=== PATIENT | male | born 1955 | race Caucasian/White ===

== ENCOUNTER 2016-08-18 14:44 | Inpatient (IN) | payer BC ==
[~2016-08-18] VITALS: Ht 195.6 cm; Wt 119.1 kg
[2016-08-18] VITALS (16 sets, daily range): BP systolic 139–197; BP diastolic 92–129; PULSE 55–90; RESP 18; TEMP 97.8–98.4; O2SAT 92–97
[2016-08-18] MEDS ORDERED: SODIUM CHLOR 0.9% 1000 ML INJ 1,000 ML IV ONE (14:55)
[2016-08-18] MEDS ORDERED: NITROGLYCERIN 0.4 MG SL 25 TABS/BTL SL STA (14:55)
[2016-08-18] MEDS ORDERED: ASPIRIN 81 MG CHEW TAB PO STA (14:55)
[2016-08-18] MEDS ORDERED: HEPARIN SODIUM - IV 10,000 UNITS/10 ML VIAL IV STA (14:55)
[2016-08-18] MEDS ORDERED: METOPROLOL TARTRATE 5 MG/5 ML VIAL SLOW IVP SCH (15:00)
[2016-08-18] MEDS ORDERED: SODIUM CHLORIDE 0.9% FLUSH 5 ML FLUSH IVF PRN ×2 (15:00→16:15)
[2016-08-18] MEDS ORDERED: HEPARIN-NS/PF INJ 500 ML ONE (15:01)
[2016-08-18] MEDS ORDERED: HEPARIN SODIUM - IV 10,000 UNITS/10 ML VIAL ONE (15:02)
[2016-08-18] MEDS ORDERED: NITROGLYCERIN INJ 5 ML ONE (15:02)
[2016-08-18] MEDS ORDERED: MIDAZOLAM HCL 2 MG/2 ML VIAL ONE (15:02)
[2016-08-18] MEDS ORDERED: VERAPAMIL HCL 5 MG/2 ML VIAL ONE (15:03)
[2016-08-18 15:16] LABS: I-STAT SODIUM 136 MMOL/L (138-146)
--- NOTE | 2016-08-18 15:18 | PD ---
HPI Chief Complaint: STEMI Alert Time Seen by Provider: 14:55 Travel History International Travel<30 days: No Contact w/Intl Traveler<30days: No Traveled to known affect area: No History of Present Illness HPI 62-year-old male complains of chest pain. Patient states that he has intermittent substernal chest pain with patient to the left low back for the past month. Patient denies palpitation nausea vomiting diaphoresis. Patient denies any coughing congestion fever chills. Patient has history hypertension and dyslipidemia. Patient quit smoking recently. Patient was referred by personal physician to see supervisor grips today. Patient was seen by Dr. Huerta and was advised to go to the emergency room for evaluation. Patient states that the chest pains much better now. Patient had cardiac catheter done in the past which showed coronary artery disease. [facility] Social History Tobacco Use: No Allergies-Medications (Allergen,Severity, Reaction): Coded Allergies: No Known Allergies (Verified , 04/21/03) Uncoded Allergies: NKA (Allergy, Unknown, 04/22/03) Review of Systems General / Constitutional: No: Fever Eyes: No: Visual changes HENT: No: Headaches Cardiovascular: Positive: Chest Pain or Discomfort Respiratory: No: Shortness of Breath Gastrointestinal: No: Abdominal Pain Genitourinary: No: Dysuria Musculoskeletal: No: Pain Skin: No Rash Neurologic: No: Weakness Psychiatric: No: Depression Endocrine: No: Polydipsia Hematologic/Lymphatic: No: Easy Bruising Physical Exam Narrative GENERAL: Well-nourished, well-developed patient. SKIN: Warm and dry. HEAD: Normocephalic. EYES: No scleral icterus. No injection or drainage. NECK: Supple, trachea midline. No JVD or lymphadenopathy. CARDIOVASCULAR: Regular rate and rhythm without murmurs, gallops, or rubs. RESPIRATORY: Breath sounds equal bilaterally. No accessory muscle use. GASTROINTESTINAL: Abdomen soft, non-tender, nondistended. MUSCULOSKELETAL: No cyanosis, or edema. BACK: Nontender without obvious deformity. No CVA tenderness. Neurologic exam normal. Data Data Last Documented VS Vital Signs Date Time Temp Pulse Resp B/P Pulse Ox O2 Delivery O2 Flow Rate FiO2 08/18/16 14:58 96 18 96 Nasal Cannula 2 08/18/16 14:57 97.8 190/98 08/18/16 14:49 21 Orders Troponin I (08/18/16 14:55) Ckmb (Isoenzyme) Profile (08/18/16 14:55) Complete Blood Count With Diff (08/18/16 14:55) I-Stat Profile (08/18/16 14:55) I-Stat Creatinine (08/18/16 14:55) Calcium (08/18/16 14:55) Magnesium (Mg) (08/18/16 14:55) Prothrombin Time / Inr (Pt) (08/18/16 14:55) Act Partial Throm Time (Ptt) (08/18/16 14:55) B-Type Natriuretic Peptide (08/18/16 14:55) Chest, Single Ap (08/18/16 14:55) Electrocardiogram (08/18/16 14:55) Oxygen Administration (08/18/16 14:55) Iv Access Insert/Monitor (08/18/16 14:55) Oximetry (08/18/16 14:55) Sodium Chlor 0.9% 1000 Ml Inj (Ns 1000 M (08/18/16 14:55) Sodium Chloride 0.9% Flush (Ns Flush) (08/18/16 15:00) Aspirin Chew (Aspirin Chew) (08/18/16 14:55) Nitroglycerin Sl (Nitrostat Sl) (08/18/16 14:55) Heparin Inj (Heparin Inj) (08/18/16 14:55) Metoprolol Tartrate Inj (Lopressor Inj) (08/18/16 15:00) Admit Order (Ed Use Only) (08/18/16 14:57) CKMB (08/18/16 14:55) CKMB% (08/18/16 14:55) Labs Laboratory Tests Test 08/18/16 14:55 White Blood Count 11.3 TH/MM3 Red Blood Count 5.03 MIL/MM3 Hemoglobin 16.7 GM/DL Bedside Hemoglobin 17.0 G/DL Hematocrit 47.8 % Bedside Hematocrit 50.0 % Mean Corpuscular Volume 95.0 FL Mean Corpuscular Hemoglobin 33.1 PG Mean Corpuscular Hemoglobin 34.8 % Concent Red Cell Distribution Width 13.3 % Platelet Count 228 TH/MM3 Mean Platelet Volume 9.0 FL Neutrophils (%) (Auto) 60.0 % Lymphocytes (%) (Auto) 31.9 % Monocytes (%) (Auto) 6.4 % Eosinophils (%) (Auto) 1.0 % Basophils (%) (Auto) 0.7 % Neutrophils # (Auto) 6.8 TH/MM3 Lymphocytes # (Auto) 3.6 TH/MM3 Monocytes # (Auto) 0.7 TH/MM3 Eosinophils # (Auto) 0.1 TH/MM3 Basophils # (Auto) 0.1 TH/MM3 CBC Comment DIFF FINAL Differential Comment Prothrombin Time 10.7 SEC Prothromb Time International 1.0 RATIO Ratio Activated Partial 27.9 SEC Thromboplast Time Bedside Sodium 136 MMOL/L Bedside Potassium 4.0 MMOL/L Bedside Chloride 102 MMOL/L Bedside Blood Urea Nitrogen 17 MG/DL Bedside Creatinine 0.9 MG/DL Bedside Glucose 100 MG/DL Calcium Level 9.4 MG/DL Magnesium Level 1.8 MG/DL Total Creatine Kinase 103 U/L Creatine Kinase MB 0.7 NG/ML Troponin I LESS THAN 0.02 NG/ML B-Type Natriuretic Peptide 244 PG/ML MDM Medical Decision Making Medical Screen Exam Complete: Yes Emergency Medical Condition: Yes Differential Diagnosis Differential diagnosis including STEMI, pericarditis, myocarditis, atypical chest pain. Narrative Course 61-year-old male with chest pain. EKG show ST elevation inferior leads and anterior leads. STEMI alert was called. Patient was given nitroglycerin sublingually, aspirin 325 mg and heparin [address] Sow, supervisor grips infusion rn contacted. Patient was taken to [facility]. Metoprolol 5 mg IV given. Diagnosis Primary Impression: STEMI (ST elevation myocardial infarction) Qualified Code: I21.11 - ST elevation myocardial infarction involving right coronary artery Admitting Information Admitting Physician Requests: Admit Iftikhar Araya MD Aug 18, 2016 15:18
[2016-08-18 15:21] LABS: AUTOMATED NEUTROPHIL # 6.8 TH/MM3 (1.8-7.7); BASOPHIL # 0.1 TH/MM3 (0-0.2); BASOPHIL % 0.7 % (0.0-2.0); EOSINOPHIL # 0.1 TH/MM3 (0-0.4); HEMATOCRIT 47.8 % (39.0-51.0); HEMO FLAGS DIFF FINAL; LYMPH % 31.9 % (9.0-44.0); LYMPHOCYTE # 3.6 TH/MM3 (1.0-4.8); MEAN CORPUSCULAR HEMOGLOBIN 33.1 PG (27.0-34.0); MEAN CORPUSCULAR HGB CONC 34.8 % (32.0-36.0); MONO % 6.4 % (0.0-8.0); PLATELET COUNT 228 TH/MM3 (150-450); RED BLOOD COUNT 5.03 MIL/MM3 (4.50-5.90); RED CELL DISTRIBUTION WIDTH 13.3 % (11.6-17.2); WHITE BLOOD COUNT 11.3 TH/MM3 (4.0-11.0)
[2016-08-18 15:30] LABS: APTT (PATIENT) 27.9 SEC (24.3-30.1); PROTHROMBIN TIME - PATIENT 10.7 SEC (9.8-11.6)
[2016-08-18] MEDS ORDERED: BIVALIRUDIN 250 MG VIAL ONE (15:34)
[2016-08-18] MEDS ORDERED: STERILE WATER FOR INJECTION 10 ML VIAL ONE (15:34)
[2016-08-18 15:38] LABS: MAGNESIUM 1.8 MG/DL (1.5-2.5)
[2016-08-18 15:42] LABS: CREATINE KINASE 103 U/L (39-308)
--- NOTE | 2016-08-18 15:45 | RADRPT ---
EXAM DATE/TIME: 08/18/2016 14:56 [facility] COMPARISON: No previous studies available for comparison. INDICATIONS : Stemi Alert MEDICAL HISTORY : None. SURGICAL HISTORY : None. ENCOUNTER: Initial ACUITY: 1 day PAIN SCORE: 0/10 LOCATION: Bilateral chest FINDINGS: Lungs are clear. No pleural effusion evident. Cardiomediastinal contours are satisfactory for techniq ue and projection. CONCLUSION: No acute disease. Low Lockhart MD on August 18, 2016 at 15:42 Board Certified Radiologist. This report was verified electronically.
[2016-08-18 15:54] LABS: CKMB 0.7 NG/ML (0.5-3.6)
[2016-08-18] MEDS ORDERED: ATROPINE SULFATE 1 MG/ML VIAL IV PRN (16:15)
[2016-08-18] MEDS ORDERED: METOCLOPRAMIDE HCL 10 MG/2 ML VIAL IV PRN (16:15)
[2016-08-18] MEDS ORDERED: SODIUM CHLOR 0.9% 250 ML INJ 250 ML IV PRN (16:15)
[2016-08-18] MEDS ORDERED: MORPHINE SULFATE 4 MG/ML INJ IV PUSH PRN (16:15)
[2016-08-18] MEDS ORDERED: MISC INFORMATION XX ONE ×2 (16:15)
[2016-08-18] MEDS ORDERED: BACITRACIN OINT 0.9 GM PKT TOP ONE ×2 (16:15)
[2016-08-18] MEDS ORDERED: LIDOCAINE HCL 1% 50 ML VIAL INFIL PRN (16:15)
[2016-08-18] MEDS ORDERED: LORazepam 2 MG/ML VIAL IV PRN (16:15)
[2016-08-18] MEDS ORDERED: oxyCODONE/ACETAMINOPHEN 5 MG/325 MG TAB PO PRN ×2 (16:15)
[2016-08-18] MEDS ORDERED: ONDANSETRON HCL 4 MG/2 ML VIAL IVP PRN (16:15)
[2016-08-18] MEDS ORDERED: ONDANSETRON HCL 4 MG/2 ML VIAL IV PRN (16:15)
[2016-08-18] MEDS ORDERED: ENALAPRILAT 1.25 MG/ML VIAL IV PRN (16:30)
[2016-08-18] MEDS ORDERED: POTASSIUM CHLORIDE 20 MEQ CONTROLLED RELEASE TAB PO PRN (16:30)
[2016-08-18] MEDS ORDERED: LABETALOL HCL 100 MG/20 ML VIAL IVP PRN (16:30)
[2016-08-18] MEDS ORDERED: MISC INFORMATION XX PRN (16:30)
[2016-08-18] MEDS ORDERED: PILL SPLITTER OTHER PRN (16:30)
[2016-08-18] MEDS ORDERED: NITROPRUSSIDE INJ 50 MG in DEXTROSE 5% IN WATER INJ 248 ML IV SCH ×2 (16:30)
--- NOTE | 2016-08-18 16:43 | MH ---
cc: JED WILLS MD DATE OF ADMISSION 08/18/2016 HISTORY OF PRESENT ILLNESS This is a 62-year-old gentleman who has a history of known coronary disease with prior chronically occluded right coronary artery back into 2009, in addition, hypertension, hyperlipidemia. He was over to see Dr. Irene at [facility]. He was complaining of some intermittent chest pain in addition to palpitations. Electrocardiogram there showed inferior ST-segment elevation. He was advised to go directly to the emergency department for evaluation. Upon arrival to the emergency department, repeat electrocardiogram also showed inferior ST-elevation and protocol was initiated. I was contacted emergently to come over for ST-elevation NH protocol. PAST MEDICAL HISTORY 1. Hypertension, 2. Hyperlipidemia 3. Known coronary disease with the chronically occluded right coronary artery. ALLERGIES None. MEDICATIONS See med reconciliation. SOCIAL HISTORY Denies alcohol, tobacco or drug use. FAMILY HISTORY Denies any family history of early cardiac disease or sudden cardiac . REVIEW OF SYSTEMS 12-point review of systems was performed, negative unless otherwise noted in history of present illness. PHYSICAL EXAMINATION VITAL SIGNS: Temperature is 97, pulse is 84, blood pressure 190/98 mmHg. GENERAL: Alert and oriented x3 in no acute distress. HEENT: Exam shows pupils reactive to light and accommodation, extraocular movements are intact. No elevation in jugular venous distension. No thyromegaly or lymphadenopathy. No carotid bruits. LUNGS: Clear to auscultation bilaterally. CARDIOVASCULAR: Regular rate and rhythm without murmurs, rubs or gallops. ABDOMEN: Nontender, nondistended. Good bowel sounds. No hepatosplenomegaly. EXTREMITIES: No clubbing, cyanosis or edema. Good peripheral pulses. NEUROLOGIC: Cranial nerves intact. Motor and sensory grossly intact. LABORATORY DATA CBC 11.3, hemoglobin 16.7, platelet count 228, INR is one. Sodium 136, potassium 4.0, BUN seven, creatinine 0.9, BNP is 244. CARDIOLOGY STUDIES Electrocardiogram - sinus rhythm, inferior Q-waves with inferior ST-elevation. ASSESSMENT 1. ST-elevation NH. 2. History of known coronary disease. 3. Hypertension. 4. Hyperlipidemia. PLAN ST-elevation NH protocol was initiated. The patient is to be brought emergently to the cardiac catheterization lab for possible revascularization. We will obtain a 2-D echocardiogram. MD NOEL Corea /4:20 PM /4:36 PM
[2016-08-18] MEDS ORDERED: ceFAZolin 2 GM PREMIX 50 ML IV SCH (17:00)
[2016-08-18] MEDS ORDERED: CHLORHEXIDINE GLUCONATE 4% SOLN 120 ML BTL TOPICAL SCH (17:00)
[2016-08-18] MEDS ORDERED: METOPROLOL TARTRATE 25 MG TAB PO SCH (17:00)
[2016-08-18] MEDS ORDERED: CEFAZOLIN INJ 500 MG in SODIUM CHLORIDE 0.9% IRR BTL 500 ML IRRIGATION SCH (17:00)
[2016-08-18] MEDS ORDERED: INSULIN REGULAR (IV INFUSION) 100 UNITS in SODIUM CHLORIDE 0.9% INJ 100 ML IV SCH (17:00)
[2016-08-18] MEDS ORDERED: PAPAVERINE INJ 60 MG, NITROGLYCERIN INJ 100 MCG, DILTIAZEM INJ 100 MG in SODIUM CHLORID... IRRIGATION SCH (17:00)
--- NOTE | 2016-08-18 18:10 | MA ---
cc: ISREAL SOW DATE: 08/18/2016 INDICATIONS FOR THE PROCEDURE: S-T elevation myocardial infarction. DIVISION COMMANDER: Isreal Sow MD, [facility]. PROCEDURE PERFORMED: 1. Fluoroscopy with interpretation. 2. Coronary angiography. 3. Left heart catheterization. 4. Left ventriculography. 5. Percutaneous transluminal angioplasty of the proximal left anterior descending coronary artery. METHOD: The risks, benefits, and alternatives were discussed with the patient. The patient understood and consented to the procedure. The patient was brought to the cardiac catheterization lab and placed on the catheterization table. The right wrist was prepped and draped in the usual sterile fashion. The right wrist was anesthetized with 2% lidocaine. The right radial artery was cannulated and a 6-Tuvaluan 7 cm-sheath was placed without difficulty. 200 mcg of intra-arterial nitroglycerin was administered. Angiomax was initiated. LEFT HEART CATHETERIZATION: A 6-Tuvaluan angled pigtail catheter was advanced across the aortic valve without difficulty. Intraventricular hemodynamics were measured at 152/23 mmHg. LEFT VENTRICULOGRAPHY: Left ventriculography was performed in the right anterior oblique using a 6-Tuvaluan angled pigtail catheter. 30 cc of contrast was injected with good opacification. Left ventricular ejection fraction visually estimated at 45%. Left ventricle is dilated. There is inferobasal dyskinesis present. No significant mitral regurgitation noted. Mild hypokinesis in the distal anterior wall and anterior apex. CORONARY ANGIOGRAPHY: The left coronary circulation was selectively engaged with a 6-Tuvaluan JL-4 guide. The right coronary circulation was selectively engaged with a 6-Tuvaluan JR-4 diagnostic catheter. Angiography findings are as follows. 1. The left main coronary is angiographically normal. 2. Left anterior descending coronary has severe disease through its entire proximal segment. Just prior to the bifurcation of a large diagonal branch, there is a 90% discrete stenosis. Just beyond the takeoff of the diagonal branch there is 100% occlusion. There is some faint collateralization to a suboptimally filled distal left anterior descending coronary artery with some tandem moderate disease wrapping around the inferior apex. The diagonal branch itself after the ostial stenosis has only minor luminal irregularities. 3. Left circumflex gives rise to a large second obtuse marginal branch. The first obtuse marginal branch is very small with rather diffuse proximal disease. The second obtuse marginal branch is widely patent. 4. The right coronary artery is the dominant vessel. It is occluded in the mid segment and fills via septal collaterals from left to right. PERCUTANEOUS INTERVENTION: The patient's old films from 2010 at [facility] were available and I reviewed them in detail. At that time, it was recognized that he had an occluded right coronary artery with collateralization, which was managed medically. His left anterior descending and circumflex territories were widely patent. His left anterior descending now is occluded and there is a question as to whether it was acute or chronic in nature (faint collateralization is present). The left coronary circulation was selectively engaged with a 6-Tuvaluan JL-4 guide catheter 0.014 to 180 cm run-through wire was navigated down to the mid left anterior descending coronary artery. A 2.5 x 20-mm Euphora balloon was advanced behind it. Several attempts to cross the mid segment of the occlusion was unsuccessful, likely due to chronicity (hard plaque not soft thrombus). The proximal segment of the left anterior descending coronary leading to the diagonal branch was gently predilated to 6 atmospheres to maintain antegrade flow to the diagonal. After unsuccessful attempt at revascularizing the distal left anterior descending due to chronic nature, we aborted any further attempted intervention. The sheath was removed. A HemoBand was applied. CONCLUSIONS: 1. Chronically occluded mid left anterior descending and mid right coronary arteries with collateralization. 2. Severe proximal left anterior descending coronary artery leading to a large diagonal branch status post successful percutaneous transluminal angioplasty. 3. 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 CONCLUSIONS: His LAD and RCA stenosis appear to be chronic in nature and not an acute event therefore we aborted any further attempts at revascularization of the LAD for concern of perforation. Given the multivessel disease, we will plan for staged bypass surgery for a full revascularization strategy. His anterior wall still has good motion and collateralization so I suspect it is still viable. The basal inferior wall was clearly dyskinetic and no longer salvageable. The mid to inferior inflow apex does appear to be fed via distal right coronary and would be a good bypass candidate. I think once the left anterior descending is bypassed, it will be a much larger vessel. It is probably underfilled now when we compare it to the prior films in 2009 in which it was a much larger size. I discussed the case with Dr. Vince Esquivel. The patient is now asymptomatic and comfortable. He may be able to go home tomorrow and have his surgery electively if he remains asymptomatic. Will monitor closely for any post-procedural complications. The case was also discussed with Dr. Valentino. The patient will be transferred over to [facility] for further cardiovascular management. MD JOLENE Corea/DANNY /4:24 PM /5:50 PM GEORGE
[2016-08-18] MEDS: cloNIDine HCL 0.1 MG TAB PO PRN (18:24)
[2016-08-18] MEDS: METOPROLOL TARTRATE 25 MG TAB PO SCH (20:39)
[2016-08-18] MEDS: ATORVASTATIN 40 MG TAB PO SCH (20:39)
[2016-08-18] MEDS: MUPIROCIN 2% OINT 1 APPLIC/GM SYR EACH NARE SCH (21:00)
[2016-08-18] MEDS ORDERED: NITROGLYCERIN-DEXTROSE 5% 250 ML for hypertension IV SCH (21:00)
[2016-08-18 21:46] LABS: HDL CHOLESTEROL 58.7 MG/DL (40.0-60.0); LDL CHOLESTEROL 157 MG/DL (0-99)
[2016-08-18 22:33] LABS: HEMOGLOBIN A1a 1.2 %; HEMOGLOBIN A1b 1.6 %; HEMOGLOBIN LA1C 1.9 %; HEMOGLOBIN P3 3.7 %
[2016-08-19] VITALS (26 sets, daily range): BP systolic 117–149; BP diastolic 72–88; PULSE 53–128; RESP 18; TEMP 97.5–98.3; O2SAT 94–98
[2016-08-19 05:28] LABS: BASOPHIL # 0.1 TH/MM3 (0-0.2); BASOPHIL % 0.6 % (0.0-2.0); EOSINOPHIL # 0.1 TH/MM3 (0-0.4); EOSINOPHIL % 1.1 % (0.0-4.0); HEMATOCRIT 44.5 % (39.0-51.0); HEMO FLAGS DIFF FINAL; LYMPH % 24.7 % (9.0-44.0); MEAN CELL VOLUME 93.6 FL (80.0-100.0); MEAN CORPUSCULAR HEMOGLOBIN 32.7 PG (27.0-34.0); MONO % 7.6 % (0.0-8.0); PLATELET COUNT 193 TH/MM3 (150-450); RED BLOOD COUNT 4.75 MIL/MM3 (4.50-5.90); RED CELL DISTRIBUTION WIDTH 13.2 % (11.6-17.2); WHITE BLOOD COUNT 12.2 TH/MM3 (4.0-11.0)
[2016-08-19 05:50] LABS: POTASSIUM 3.5 MEQ/L (3.5-5.1)
[2016-08-19 05:54] LABS: HDL CHOLESTEROL 48.1 MG/DL (40.0-60.0)
[2016-08-19] MEDS: METOPROLOL TARTRATE 25 MG TAB PO SCH ×2 (08:03→20:16)
[2016-08-19] MEDS: ASPIRIN 81 MG CHEW TAB PO SCH (08:03)
[2016-08-19] MEDS: SODIUM CHLORIDE 0.9% FLUSH 5 ML FLUSH IVF SCH ×2 (08:06→20:16)
[2016-08-19] MEDS: MUPIROCIN 2% OINT 1 APPLIC/GM SYR EACH NARE SCH ×2 (08:06→20:16)
[2016-08-19] MEDS ORDERED: LISINOPRIL 5 MG TAB PO SCH (09:00)
[2016-08-19] MEDS ORDERED: SIMV40TA PO (11:33)
[2016-08-19] MEDS ORDERED: LISI20TA3 PO (11:33)
--- NOTE | 2016-08-19 12:45 | RADRPT ---
EXAM DATE/TIME: 08/19/2016 08:52 [facility] COMPARISON: No previous studies available for comparison. INDICATIONS : Preop cardiac surgery. MEDICAL HISTORY : Hypertension. Dyslipidemia. CAD. SURGICAL HISTORY : Vasectomy. ENCOUNTER: Initial ACUITY: 1 day PAIN SCORE: 0/10 LOCATION: Bilateral neck PEAK SYSTOLIC VELOCITIES (cm/sec): ICA/CCA RATIO: Right: 1.1 Left: 0.8 ICA: Right: 68 Left: 76 CCA: Right: 59 Left: 95 ECA: Right: 96 Left: 73 VERTEBRAL: Right: 41 antegrade Left: 65 antegrade Elevated flow velocities and ICA/CCA ratios have been found to correlate with increased degrees of vessel stenosis, calculated as percentage of diameter relative to a normal segment of distal ICA/CCA FINDINGS: RIGHT CAROTID: No significant stenosis is visualized. The waveforms are within normal limits. LEFT CAROTID: No significant stenosis is visualized. The waveforms are within normal limits. VERTEBRAL ARTERIES: Antegrade flow is seen in both vertebral arteries. MISCELLANEOUS: None. CONCLUSION: Normal examination for a patient of this age. Haroldo Fields MD on August 19, 2016 at 12:42 Board Certified Radiologist. This report was verified electronically.
--- NOTE | 2016-08-19 12:46 | RADRPT ---
EXAM DATE/TIME: 08/19/2016 09:02 [facility] COMPARISON: No previous studies available for comparison. INDICATIONS : Preop cardiac surgery. MEDICAL HISTORY : Hypertension. CAD. Dyslipidemia. SURGICAL HISTORY : Vasectomy. ENCOUNTER: Initial ACUITY: 1 day PAIN SCORE: 0/10 LOCATION: Bilateral leg. TECHNIQUE: Venous ultrasound of the left and right leg was performed from the inguinal ligament to the proximal calf. Real-time, color Doppler and spectral tracing, compression and augmentation techniques were us ed. FINDINGS: RIGHT LEG: There is normal compressibility of the deep venous system from the inguinal region to the proximal ca lf. No echogenic clot is seen in the lumen of the common femoral, femoral, popliteal, and posterior tibial veins. There is a normal response of the venous system to proximal and distal augmentation an d respiration. LEFT LEG: There is normal compressibility of the deep venous system from the inguinal region to the proximal ca lf. No echogenic clot is seen in the lumen of the common femoral, femoral, popliteal, and posterior tibial veins. There is a normal response of the venous system to proximal and distal augmentation an d respiration. CONCLUSION: Normal examination. Haroldo Fields MD on August 19, 2016 at 12:44 Board Certified Radiologist. This report was verified electronically.
--- NOTE | 2016-08-19 12:58 | RADRPT ---
EXAM DATE/TIME: 08/19/2016 09:12 [facility] COMPARISON: No previous studies available for comparison. INDICATIONS : Preop Cardiac surgery. MEDICAL HISTORY : Hypertension. Dyslipidemia. CAD. SURGICAL HISTORY : Vasectomy. ENCOUNTER: Initial ACUITY: 1 day PAIN SCORE: 0/10 LOCATION: Bilateral leg. GREATER SAPHENOUS VEIN THIGH: PROXIMAL: Right 5 mm Left 7 mm MID: Right 4 mm Left 4 mm DISTAL: Right 4 mm Left 5 mm CALF: PROXIMAL: Right 3 mm Left 3 mm MID: Right 2 mm Left 3 mm DISTAL: Right 3 mm Left 3 mm FINDINGS: The venous system of the lower extremities are patent by color Doppler imaging. Measurements of the leg veins (in mm) are listed above. CONCLUSION: Patent saphenous veins throughout bilaterally Low Lockhart MD on August 19, 2016 at 12:56 Board Certified Radiologist. This report was verified electronically.
--- NOTE | 2016-08-19 13:14 | PD.CONS ---
HPI Service [facility] Consult Requested By Dr. whitten Reason for Consult Medical management Primary Care Physician Unknown Diagnoses: History of Present Illness This is a 62-year-old male with known history of coronary artery disease with chronic reoccluded right coronary artery in 2009 and hypertension, presenting with intermittent chest pain with palpitations. EKG showed ST segment elevation , patient was immediately brought to the OR for cardiac catheterization. Cardiac catheter showed included left anterior descending and mid right coronary artery with collateralization. There is also severe proximal LAD leading to a large diagonal branch status post angioplasty. Given multivessel disease, plan is for bypass surgery for full revascularization. We are being consulted for medical comanagement of chronic conditions. Presently, patient is chest pain-free, no palpitations, shortness of breath, nausea, vomiting or diaphoresis. Patient is anxious about the surgery but otherwise feeling good. No abdominal pain, diarrhea or urinary symptoms. He is afebrile. Review of Systems ROS Limitations: Other (All other pertinent systems were reviewed and are negative.) Past Family Social History Allergies: Coded Allergies: No Known Allergies (Verified , 04/21/03) Uncoded Allergies: NKA (Allergy, Unknown, 04/22/03) Past Medical History Hypertension Dyslipidemia Coronary artery disease with chronically interpreted RCA Past Surgical History None Reported Medications Lisinopril-Hctz 20-25 Mg Tab 1 Tab PO DAILY Simvastatin 40 Mg Tab 40 Mg PO HS Family History No family history of early cardiac disease or sudden cardiac Social History Denies smoking or alcohol use. Physical Exam Vital Signs Vital Signs Date Time Temp Pulse Resp B/P Pulse Ox O2 Delivery O2 Flow Rate FiO2 08/19/16 12:26 59 08/19/16 11:36 97.7 56 18 130/78 95 08/19/16 11:36 56 08/19/16 10:45 94 21 08/19/16 10:05 53 08/19/16 09:21 63 08/19/16 08:38 97.5 57 18 124/84 95 08/19/16 08:38 57 08/19/16 05:00 60 08/19/16 04:30 98.3 61 18 136/76 96 08/19/16 04:00 57 08/19/16 03:00 56 08/19/16 02:00 57 08/19/16 01:00 54 08/19/16 00:00 98.2 58 18 149/87 96 08/19/16 00:00 58 08/18/16 23:00 55 08/18/16 22:00 66 08/18/16 21:00 66 08/18/16 20:00 67 08/18/16 19:45 98.3 62 18 139/95 96 08/18/16 19:00 62 08/18/16 18:27 98.3 65 18 164/118 97 08/18/16 18:25 61 08/18/16 17:57 98.4 56 18 143/92 95 08/18/16 17:52 55 18 143/92 96 08/18/16 17:52 63 08/18/16 17:51 98.4 60 18 148/99 97 08/18/16 16:32 98.4 61 18 148/99 95 08/18/16 15:05 90 18 173/127 95 Nasal Cannula 2 08/18/16 14:58 96 18 96 Nasal Cannula 2 08/18/16 14:57 94 Room Air 2 08/18/16 14:57 97.8 84 18 190/98 95 Nasal Cannula 2 08/18/16 14:57 94 Nasal Cannula 2 08/18/16 14:56 89 18 197/129 92 Nasal Cannula 2 08/18/16 14:49 94 21 Physical Exam GENERAL: This is a well-nourished, well-developed patient, in no apparent distress. SKIN: No rashes, ecchymoses or lesions. Cool and dry. HEAD: Atraumatic. Normocephalic. No temporal or scalp tenderness. EYES: Pupils equal round and reactive. Extraocular motions intact. No scleral icterus. No injection or drainage. ENT: Nose without bleeding, purulent drainage or septal hematoma. Throat without erythema, tonsillar hypertrophy or exudate. Uvula midline. Airway patent. NECK: Trachea midline. No JVD or lymphadenopathy. Supple, nontender, no meningeal signs. CARDIOVASCULAR: Regular rate and rhythm without murmurs, gallops, or rubs. RESPIRATORY: Clear to auscultation. Breath sounds equal bilaterally. No wheezes , rales, or rhonchi. GASTROINTESTINAL: Abdomen soft, non-tender, nondistended. No hepato-splenomegaly , or palpable masses. No guarding. MUSCULOSKELETAL: Extremities without clubbing, cyanosis, or edema. No joint tenderness, effusion, or edema noted. No calf tenderness. Negative Homans sign bilaterally. NEUROLOGICAL: Awake and alert. Cranial nerves II through XII intact. Motor and sensory grossly within normal limits. Five out of 5 muscle strength in all muscle groups. Normal speech. Laboratory Laboratory Tests Test 08/18/16 08/18/16 08/19/16 08/19/16 14:55 19:20 04:40 10:34 White Blood Count 11.3 12.2 Red Blood Count 5.03 4.75 Hemoglobin 16.7 15.6 Bedside Hemoglobin 17.0 Hematocrit 47.8 44.5 Bedside Hematocrit 50.0 Mean Corpuscular Volume 95.0 93.6 Mean Corpuscular Hemoglobin 33.1 32.7 Mean Corpuscular Hemoglobin 34.8 35.0 Concent Red Cell Distribution Width 13.3 13.2 Platelet Count 228 193 Mean Platelet Volume 9.0 8.7 Neutrophils (%) (Auto) 60.0 66.0 Lymphocytes (%) (Auto) 31.9 24.7 Monocytes (%) (Auto) 6.4 7.6 Eosinophils (%) (Auto) 1.0 1.1 Basophils (%) (Auto) 0.7 0.6 Neutrophils # (Auto) 6.8 8.0 Lymphocytes # (Auto) 3.6 3.0 Monocytes # (Auto) 0.7 0.9 Eosinophils # (Auto) 0.1 0.1 Basophils # (Auto) 0.1 0.1 CBC Comment DIFF FINAL DIFF FINAL Differential Comment Prothrombin Time 10.7 Prothromb Time International 1.0 Ratio Activated Partial 27.9 Thromboplast Time Bedside Sodium 136 Bedside Potassium 4.0 Bedside Chloride 102 Bedside Blood Urea Nitrogen 17 Bedside Creatinine 0.9 Bedside Glucose 100 Hemoglobin A1c 5.8 Calcium Level 9.4 9.0 Magnesium Level 1.8 Total Creatine Kinase 103 163 Creatine Kinase MB 0.7 Troponin I LESS THAN 0.02 0.06 B-Type Natriuretic Peptide 244 Triglycerides Level 199 288 Cholesterol Level 255 240 LDL Cholesterol 157 134 HDL Cholesterol 58.7 48.1 Cholesterol/HDL Ratio 4.34 4.98 Thyroid Stimulating Hormone 1.660 3rd Gen Nasal Screen MRSA (PCR) NEGATIVE Sodium Level 137 Potassium Level 3.5 Chloride Level 100 Carbon Dioxide Level 28.0 Anion Gap 9 Blood Urea Nitrogen 13 Creatinine 1.05 Estimat Glomerular Filtration 72 Rate Random Glucose 100 Result Diagram: 08/19/16 0440 08/19/16 0440 Imaging Last Impressions Lower Extremity Ultrasound 08/19/16 0000 Signed Impressions: Service Date/Time: Friday, August 19, 2016 09:02 - CONCLUSION: Normal examination. Haroldo Fields MD Carotid Artery Ultrasound 08/19/16 0000 Signed Impressions: Service Date/Time: Friday, August 19, 2016 08:52 - CONCLUSION: Normal examination for a patient of this age. Haroldo Fields MD Chest X-Ray 08/18/16 1455 Signed Impressions: Service Date/Time: August 14:56 - CONCLUSION: No acute disease. Low Lockhart MD Assessment and Plan Assessment and Plan This is a 61-year-old male with history of hypertension, dyslipidemia and coronary artery disease with chronically occlude RCA presenting with chest pain found to have multivessel are artery disease Chest pain, STEMI -status post cardiac catheterization 08/18/16 revealed chronically occlude LAD and RCA mode multivessel disease, cardiothoracic surgery consulted for CABG, likely Monday. Continue medical management, continue aspirin, lisinopril, metoprolol, statin, LDL is 134, troponin maxed at 0.06. Lisinopril dose decreased to give room for metoprolol, hydrochlorothiazide also on hold. Adjust as needed. Leukocytosis-likely stress-induced, monitor, recheck tomorrow. Afebrile. Code Status Full code. Marsha Vora MD Aug 19, 2016 13:14
[2016-08-19] MEDS ORDERED: ENALAPRILAT 1.25 MG/ML VIAL IV PUSH PRN (13:15)
[2016-08-19 14:31] LABS: BLOOD, URINE NEG (NEG); COMMENT (UR) CULT NOT INDICATED; CULTURE IF INDICATED CULT NOT INDICATED; GLUCOSE,URINE NEG (NEG); KETONE, URINE NEG (NEG); NITRITE,URINE NEG (NEG); URINE COLOR LIGHT-YELLOW (YELLW/STRAW)
[2016-08-19] MEDS ORDERED: IOHEXOL 350 MG/ML 100 ML BTL (for Cath Lab) OTHER ONE (15:00)
--- NOTE | 2016-08-19 15:23 | EC ---
Study Study Date:08/19/2016 STUDY CONCLUSIONS SUMMARY - Left ventricle: The cavity size was moderately dilated. There was focal basal hypertrophy. Systolic function was severely reduced. The estimated ejection fraction was in the range of 20% to 25%. There was no dynamic obstruction. Akinesis of the apical myocardium; consistent with infarction. Severe hypokinesis of the anteroseptal myocardium. Severe hypokinesis of the inferior myocardium. - Mitral valve: Mild regurgitation. - Left atrium: The atrium was mildly dilated. - Tricuspid valve: Mild regurgitation. If LV function is below 40, please consider prescribing an ACEI or ARB or document rationale for non-use. PROCEDURE DATA STUDY STATUS: Elective. Procedure: Transthoracic echocardiography. Image quality was good. Scanning was performed from the parasternal, apical, and subcostal acoustic windows. Study completion: The patient tolerated the procedure well. Transthoracic echocardiography. M-mode, complete 2D, complete spectral Doppler, and color Doppler. Patient status: Inpatient. CARDIAC ANATOMY LEFT VENTRICLE: The cavity size was moderately dilated. There was focal basal hypertrophy. Systolic function was severely reduced. The estimated ejection fraction was in the range of 20% to 25%. There was no dynamic obstruction. Regional wall motion abnormalities: Akinesis of the apical myocardium; consistent with infarction. Severe hypokinesis of the anteroseptal myocardium. Severe hypokinesis of the inferior myocardium. AORTIC VALVE: Probably trileaflet. Doppler: There was no stenosis. No significant regurgitation. MITRAL VALVE: The valve appears to be grossly normal. Doppler: There was no evidence for stenosis. Mild regurgitation. LEFT ATRIUM: The atrium was mildly dilated. RIGHT VENTRICLE: The cavity size was normal. PULMONIC VALVE: Not well visualized. Doppler: There was no evidence for stenosis. No significant regurgitation. TRICUSPID VALVE: The valve appears to be grossly normal. Doppler: There was no evidence for stenosis. Mild regurgitation. BASIC MEASUREMENTS ADULT NORMAL Left ventricle LV internal dimension, ED, chordal level, *63.8 mm 43-52 PLAX LV internal dimension, ES, chordal level, *58.5 mm 23-38 PLAX Fractional shortening, chordal level, PLAX *8 % >29 LV posterior wall thickness, ED 11.9 mm IVS/LVPW ratio, ED *1.5 <1.3 Ventricular septum Septal thickness, ED 17.8 mm Aortic valve Leaflet separation 24 mm 15-26 Right ventricle RV internal dimension, ED, PLAX 33.1 mm 19-38 BASIC MEASUREMENTS ADULT NORMAL Aortic valve Leaflet separation 24 mm 15-26 Aorta Root diameter, ED *44 mm 20-37 Left atrium Anterior-posterior dimension, ES 39 mm 19-40 LA/aortic root ratio 0.89 LEGEND: Mean values are shown as u=mean value. Asterisk (*) conteh values outside specified normal range. Prepared and signed by Jono Laws [id number]
--- NOTE | 2016-08-19 15:29 | RADRPT ---
EXAM DATE/TIME: 08/19/2016 14:31 [place] COMPARISON: No previous studies available for comparison. INDICATIONS : Dilated aortic root. RADIATION DOSE: 6.83 CTDIvol (mGy) MEDICAL HISTORY : Hypertension. SURGICAL HISTORY : Vasectomy. ENCOUNTER: Initial ACUITY: 1 day PAIN SCALE: 0/10 LOCATION: chest TECHNIQUE: Volumetric scanning of the chest was performed. Using automated exposure control and adjustment of the mA and/or kV according to patient size, radiation dose was kept as low as reasonab ly achievable to obtain optimal diagnostic quality images. FINDINGS: There is no focal consolidation. No pleural or pericardial effusion. Ascending aorta measures about 4 .2 cm. Aorta is tortuous. Moderate coronary calcifications. No acute findings in upper abdomen. Mild fatty liver. Adrenal adenomas bilaterally measuring about 2 cm in diameter. CONCLUSION: Ascending aorta mildly dilated to about 4.2 cm. Moderate coronary calcifications. Tortuous aorta. Haroldo Fields MD on August 19, 2016 at 14:49 Board Certified Radiologist. This report was verified electronically.
--- NOTE | 2016-08-19 16:17 | PD.CAR.PN ---
CVT Progress Note Subjective/Hospital Course: sts data discussed with pt RISK SCORES About the STS Risk Calculator Procedure: CAB Only Risk of Mortality: 1.251% Morbidity or Mortality: 14.911% Long Length of Stay: 5.027% Short Length of Stay: 43.517% Permanent Stroke: 0.744% Prolonged Ventilation: 11.471% DSW Infection: 0.674% Renal Failure: 3.022% Reoperation: 4.931% Objective: Vital Signs Date Time Temp Pulse Resp B/P Pulse Ox O2 Delivery O2 Flow Rate FiO2 08/19/16 15:19 54 08/19/16 15:19 98.2 54 18 133/72 98 08/19/16 14:00 67 08/19/16 13:06 57 08/19/16 12:26 59 08/19/16 11:36 97.7 56 18 130/78 95 08/19/16 11:36 56 08/19/16 10:45 94 21 08/19/16 10:05 53 08/19/16 09:21 63 08/19/16 08:38 97.5 57 18 124/84 95 08/19/16 08:38 57 08/19/16 05:00 60 08/19/16 04:30 98.3 61 18 136/76 96 08/19/16 04:00 57 08/19/16 03:00 56 08/19/16 02:00 57 08/19/16 01:00 54 08/19/16 00:00 98.2 58 18 149/87 96 08/19/16 00:00 58 08/18/16 23:00 55 08/18/16 22:00 66 08/18/16 21:00 66 08/18/16 20:00 67 08/18/16 19:45 98.3 62 18 139/95 96 08/18/16 19:00 62 08/18/16 18:27 98.3 65 18 164/118 97 08/18/16 18:25 61 08/18/16 17:57 98.4 56 18 143/92 95 08/18/16 17:52 55 18 143/92 96 08/18/16 17:52 63 08/18/16 17:51 98.4 60 18 148/99 97 08/18/16 16:32 98.4 61 18 148/99 95 Labs: Laboratory Tests Test 08/19/16 08/19/16 08/19/16 04:40 10:34 13:40 White Blood Count 12.2 TH/MM3 (4.0-11.0) Red Blood Count 4.75 MIL/MM3 (4.50-5.90) Hemoglobin 15.6 GM/DL (13.0-17.0) Hematocrit 44.5 % (39.0-51.0) Mean Corpuscular Volume 93.6 FL (80.0-100.0) Mean Corpuscular Hemoglobin 32.7 PG (27.0-34.0) Mean Corpuscular Hemoglobin 35.0 % Concent (32.0-36.0) Red Cell Distribution Width 13.2 % (11.6-17.2) Platelet Count 193 TH/MM3 (150-450) Mean Platelet Volume 8.7 FL (7.0-11.0) Neutrophils (%) (Auto) 66.0 % (16.0-70.0) Lymphocytes (%) (Auto) 24.7 % (9.0-44.0) Monocytes (%) (Auto) 7.6 % (0.0-8.0) Eosinophils (%) (Auto) 1.1 % (0.0-4.0) Basophils (%) (Auto) 0.6 % (0.0-2.0) Neutrophils # (Auto) 8.0 TH/MM3 (1.8-7.7) Lymphocytes # (Auto) 3.0 TH/MM3 (1.0-4.8) Monocytes # (Auto) 0.9 TH/MM3 (0-0.9) Eosinophils # (Auto) 0.1 TH/MM3 (0-0.4) Basophils # (Auto) 0.1 TH/MM3 (0-0.2) CBC Comment DIFF FINAL Differential Comment Sodium Level 137 MEQ/L (136-145) Potassium Level 3.5 MEQ/L (3.5-5.1) Chloride Level 100 MEQ/L (98-107) Carbon Dioxide Level 28.0 MEQ/L (21.0-32.0) Anion Gap 9 MEQ/L (5-15) Blood Urea Nitrogen 13 MG/DL (7-18) Creatinine 1.05 MG/DL (0.60-1.30) Estimat Glomerular Filtration 72 ML/MIN (>89) Rate Random Glucose 100 MG/DL (74-106) Calcium Level 9.0 MG/DL (8.5-10.1) Total Creatine Kinase 163 U/L (39-308) Triglycerides Level 288 MG/DL (42-150) Cholesterol Level 240 MG/DL (120-200) LDL Cholesterol 134 MG/DL (0-99) HDL Cholesterol 48.1 MG/DL (40.0-60.0) Cholesterol/HDL Ratio 4.98 RATIO Troponin I 0.06 NG/ML (0.02-0.05) Urine Color LIGHT-YELLOW (YELLW/STRAW) Urine Turbidity CLEAR (CLEAR) Urine pH 7.0 (5.0-8.5) Urine Specific [place] 1.005 (1.002-1.035) Urine Protein NEG mg/dL (NEG-TRACE) Urine Glucose (UA) NEG mg/dL (NEG) Urine Ketones NEG mg/dL (NEG) Urine Occult Blood NEG (NEG) Urine Nitrite NEG (NEG) Urine Bilirubin NEG (NEG) Urine Urobilinogen LESS THAN 2.0 MG/DL (LESS THAN 2.0) Urine Leukocyte Esterase NEG (NEG) Urine RBC LESS THAN 1 /hpf (0-3) Urine WBC LESS THAN 1 /hpf (0-5) Microscopic Urinalysis Comment CULT NOT INDICATED Result Diagram: [id number] Shelia Vasquez Aug 19, 2016 16:17
--- NOTE | 2016-08-19 17:24 | MB ---
cc: RITCHIE SHRESTHA MD DATE OF CONSULTATION 08/19/16 DATE OF : 1955 HISTORY OF PRESENT ILLNESS A 62-year-old male patient of Dr. En Valentino, Dr. Guzman. Known history of coronary artery disease with prior history of chronically occluded right coronary artery back in 2009 complaining of intermittent chest pain in addition to palpitations recently seen at Dr. Valentino's office of the [facility]. EKG showed some inferior ST-segment elevation, advised to go to the emergency room. Upon arrival, he showed some EKG changes and the protocol was initiated and he was sent to the laboratory phlebotomist where he underwent heart catheterization by Dr. Emory Sow. He was found to have an EF on the cath report of 45%, left ventricle was dilated, some inferior basal dyskinesis. He also reviewed the films from [facility] at 2009 and recognized that he had an occluded right coronary artery with collateralization which was managed medically. The LAD and the circ were widely patent. His left anterior descending was now occluded and whether it was acute or chronic in nature. The patient per the notes from Dr. Sow felt that the chronically occluded mid LAD and mid RCA with collateralization. He has had some severe proximal LAD leading to a large diagonal branch post successful PCI. We were asked to evaluate the patient to evaluate for coronary artery bypass grafting to the LAD, diagonal and the right coronary artery. PAST MEDICAL HISTORY 1. Hypertension, 2. Hyperlipidemia, 3. Known coronary artery disease with chronically occluded right coronary artery PAST SURGICAL HISTORY 1. Vasectomy 2. Heart catheterization. ALLERGIES No known allergies. MEDICATIONS Home include 1. Lisinopril 2. Simvastatin. FAMILY HISTORY Father from complications of lung cancer. Mother following an unfortunate fall. SOCIAL HISTORY The patient , two children. Works as a musician. Smoked for a total of 15 years off and on 1/2 pack to a pack a day, quit in 2008. Drinks about two to three drinks per week. REVIEW OF SYSTEMS GENERAL: No night sweats, fever, heat or cold intolerance. SKIN: No psoriasis, itching or hives. HEENT: No blurred vision, hearing loss. RESPIRATORY: Positive for some shortness of breath. CARDIOVASCULAR: As above in HPI. GASTROINTESTINAL: No diarrhea, vomiting. GENITOURINARY: No burning, frequency, urgency MANAGER EXPORT: No history of TIA, CVA, seizure disorder ENDOCRINE: No history of hypothyroidism and/or diabetes mellitus PHYSICAL EXAMINATION VITAL SIGNS: Blood pressure 130/70, heart rate 60, afebrile. GENERAL: Patient is awake, alert in no acute distress HEAD: Normocephalic, atraumatic. Pupils equal and reactive. Oral mucosa pink, moist. NECK: Supple. No JVD. HEART: Heart sounds S1-S2, regular rate and rhythm. No rubs, murmurs, gallops. LUNGS: Clear to auscultation. No wheezes, rales or rhonchi. ABDOMEN: Soft, nontender. No masses or organomegaly. EXTREMITIES: no cyanosis, clubbing or edema. SKIN: He does have chronic psoriasis with plaques of his elbows and knees and he has some chronic venostasis to his lower extremities. CARDIOLOGY STUDIES He did have an echo that was done that did show an EF of 20-25%, akinesis of the apical myocardium consistent with infarct, severe hypokinesis of the anterior septal wall, mild MR. IMPRESSION This is a 62-year-old male with multivessel disease, known coronary artery disease with prior chronically occluded right coronary artery back is 2009. At this time, the cardiac films have been reviewed by Dr. Ritchie Shrestha. Procedures, alternatives and risks have been discussed with the patient. Plan is for coronary artery bypass grafting to the LAD to diagonal and a right coronary artery. The patient is agreeable to proceed. Plan will be for surgery on Monday. Further planning as per Dr. Ritchie Shrestha. Dictated by NEVILLE Baires Ritchie DELUCA/ /4:24 PM /8:44 AM
[2016-08-19] MEDS: ATORVASTATIN 40 MG TAB PO SCH (20:16)
--- NOTE | 2016-08-19 22:37 | EKG ---
Date Performed: 08/19/2016 Time Performed: 05:37:52 PTAGE: 61 years EKG: Sinus bradycardia with interpolated PVC(s) IV conduction defect ST minimal elevation inferi amena, possible acute infarct Old anterior infarct Abnormal ECG PREVIOUS TRACING : 08/18/2016 17.28 Since previous tracing, no significant change noted DOCTOR: Jono Laws Interpretating Date/Time 08/19/2016 22:35:24
--- NOTE | 2016-08-19 22:39 | EKG ---
Date Performed: 08/18/2016 Time Performed: 17:28:52 PTAGE: 61 years EKG: Sinus bradycardia IV conduction defect Minimal ST elevation inferiorly, possible acute infa rct Old anterior infarct Abnormal ECG PREVIOUS TRACING : 08/18/[address] elevation in the inferior leads is now decreased DOCTOR: Jono Laws Interpretating Date/Time 08/19/2016 22:38:06
--- NOTE | 2016-08-19 22:52 | EKG ---
Date Performed: 08/18/2016 Time Performed: 14:46:20 PTAGE: 61 years EKG: Sinus rhythm POSSIBLE LEFT ATRIAL ENLARGEMENT Left Bundle Branch Block LEFT VENTRICULAR HYPERTROPHY AND ST-T BISHOP GE INFERIOR MYOCARDIal ACUTE INFARCT ACUTE IA NO PREVIOUS TRACING DOCTOR: Jono Laws Interpretating Date/Time 08/19/2016 22:52:10
[2016-08-20] VITALS (27 sets, daily range): BP systolic 106–127; BP diastolic 63–77; PULSE 52–92; RESP 18; TEMP 97.5–98.2; O2SAT 92–97
[2016-08-20 06:46] LABS: BICARBONATE 28.5 MEQ/L (21.0-32.0); POTASSIUM 3.5 MEQ/L (3.5-5.1)
[2016-08-20 07:17] LABS: AUTOMATED NEUTROPHIL # 6.8 TH/MM3 (1.8-7.7); BASOPHIL # 0.1 TH/MM3 (0-0.2); BASOPHIL % 0.8 % (0.0-2.0); EOSINOPHIL # 0.1 TH/MM3 (0-0.4); EOSINOPHIL % 1.2 % (0.0-4.0); HEMATOCRIT 45.2 % (39.0-51.0); HEMO FLAGS DIFF FINAL; LYMPH % 24.5 % (9.0-44.0); LYMPHOCYTE # 2.6 TH/MM3 (1.0-4.8); MEAN CELL VOLUME 93.7 FL (80.0-100.0); MEAN CORPUSCULAR HEMOGLOBIN 32.9 PG (27.0-34.0); MEAN CORPUSCULAR HGB CONC 35.1 % (32.0-36.0); MONO % 7.8 % (0.0-8.0); NEUT % 65.7 % (16.0-70.0); PLATELET COUNT 195 TH/MM3 (150-450); RED BLOOD COUNT 4.82 MIL/MM3 (4.50-5.90); RED CELL DISTRIBUTION WIDTH 13.1 % (11.6-17.2); WHITE BLOOD COUNT 10.4 TH/MM3 (4.0-11.0)
[2016-08-20] MEDS: MUPIROCIN 2% OINT 1 APPLIC/GM SYR EACH NARE SCH ×2 (08:24→20:32)
[2016-08-20] MEDS: ASPIRIN 81 MG CHEW TAB PO SCH (08:24)
[2016-08-20] MEDS: SODIUM CHLORIDE 0.9% FLUSH 5 ML FLUSH IVF SCH ×2 (08:25→20:33)
[2016-08-20] MEDS: METOPROLOL TARTRATE 25 MG TAB PO SCH ×2 (08:25→20:30)
--- NOTE | 2016-08-20 09:34 | HHI.PR ---
Subjective Remarks fu chest pain - stemi patient denies cp/sob stable vital signs states felt lightheaded after getting bp meds Objective Vitals Vital Signs Date Time Temp Pulse Resp B/P Pulse Ox O2 Delivery O2 Flow Rate FiO2 08/20/16 09:00 76 08/20/16 08:11 97.5 57 18 127/75 97 08/20/16 08:00 57 08/20/16 07:00 60 08/20/16 05:00 60 08/20/16 04:00 62 08/20/16 03:20 98.2 59 18 119/63 96 08/20/16 03:00 56 08/20/16 02:00 56 08/20/16 01:00 64 08/20/16 00:00 52 08/19/16 23:20 98.2 54 18 117/76 96 08/19/16 23:00 53 08/19/16 22:00 57 08/19/16 21:00 128 08/19/16 20:00 71 08/19/16 19:40 98.1 72 18 146/88 96 08/19/16 19:00 60 08/19/16 18:02 61 08/19/16 17:08 59 08/19/16 16:19 60 08/19/16 15:19 54 08/19/16 15:19 98.2 54 18 133/72 98 08/19/16 14:00 67 08/19/16 13:06 57 08/19/16 12:26 59 08/19/16 11:36 97.7 56 18 130/78 95 08/19/16 11:36 56 08/19/16 10:45 94 21 08/19/16 10:05 53 I/O 08/19/16 08/19/16 08/19/16 08/20/16 08/20/16 08/20/16 07:00 15:00 23:00 07:00 15:00 23:00 Intake Total 480 ml 720 ml 720 ml Output Total 875 ml 800 ml 550 ml Balance -395 ml -80 ml 170 ml Intake Oral 480 ml 720 ml 720 ml Output Urine Total 875 ml 800 ml 550 ml # Bowel Movements 0 Result Diagram: 08/20/16 0530 08/20/16 0530 Imaging Last Impressions Lower Extremity Ultrasound 08/19/16 0000 Signed Impressions: Service Date/Time: Friday, August 19, 2016 09:12 - CONCLUSION: Patent saphenous veins throughout bilaterally Low Lockhart MD Chest CT 08/19/16 0000 Signed Impressions: Service Date/Time: Friday, August 19, 2016 14:31 - CONCLUSION: Ascending aorta mildly dilated to about 4.2 cm. Moderate coronary calcifications. Tortuous aorta. Haroldo Fields MD Carotid Artery Ultrasound 08/19/16 0000 Signed Impressions: Service Date/Time: Friday, August 19, 2016 08:52 - CONCLUSION: Normal examination for a patient of this age. Haroldo Fields MD Chest X-Ray 08/18/16 1455 Signed Impressions: Service Date/Time: August 14:56 - CONCLUSION: No acute disease. Low Lockhart MD Objective Remarks GENERAL: This is a well-nourished, well-developed patient, in no apparent distress. SKIN: No rashes, ecchymoses or lesions. Cool and dry. HEAD: Atraumatic. Normocephalic. No temporal or scalp tenderness. EYES: Pupils equal round and reactive. Extraocular motions intact. No scleral icterus. No injection or drainage. ENT: Nose without bleeding, purulent drainage or septal hematoma. Throat without erythema, tonsillar hypertrophy or exudate. Uvula midline. Airway patent. NECK: Trachea midline. No JVD or lymphadenopathy. Supple, nontender, no meningeal signs. CARDIOVASCULAR: Regular rate and rhythm without murmurs, gallops, or rubs. RESPIRATORY: Clear to auscultation. Breath sounds equal bilaterally. No wheezes , rales, or rhonchi. GASTROINTESTINAL: Abdomen soft, non-tender, nondistended. No hepato-splenomegaly , or palpable masses. No guarding. MUSCULOSKELETAL: Extremities without clubbing, cyanosis, or edema. No joint tenderness, effusion, or edema noted. No calf tenderness. Negative Homans sign bilaterally. NEUROLOGICAL: Awake and alert. Cranial nerves II through XII intact. Motor and sensory grossly within normal limits. Five out of 5 muscle strength in all muscle groups. Normal speech. Procedures Left heart cardiac catheterization on 08/18/16 which showed chronic LAD and RCA stenosis. Medications and IVs Current Medications Medications (Trade) Dose Ordered Sig/[place] Route Start Time Stop Time Status Last Admin (NS Flush) 2 ml BID IVF 08/18/16 21:00 08/20/16 08:25 (NS Flush) 2 ml UNSCH PRN IVF 08/18/16 16:15 (Zofran Inj) 4 mg Q6H PRN IVP 08/18/16 16:15 (Percocet 5-325 Mg) 1 tab Q4H PRN PO 08/18/16 16:15 (Percocet 5-325 Mg) 2 tab Q4H PRN PO 08/18/16 16:15 (Morphine Inj) 2 mg Q30M PRN IV PUSH 08/18/16 16:15 (Aspirin Chew) 81 mg DAILY PO 08/19/16 09:00 08/20/16 08:24 (Atropine Inj) 0.5 mg UNSCH PRN IV 08/18/16 16:15 (Reglan Inj) 10 mg Q4H PRN IV 08/18/16 16:15 (Lopressor) 12.5 mg BID PO 08/18/16 21:00 08/20/16 08:25 Atorvastatin Calcium 40 mg 40 mg HS PO 08/18/16 21:00 08/19/16 20:16 (Nipride Inj/D5W Inj) 250 ml @ 0 mls/hr TITRATE IV 08/18/16 16:30 Miscellaneous Information 1 UNSCH PRN XX 08/18/16 16:30 08/20/16 16:29 (Catapres) 0.2 mg Q6H PRN PO 08/18/16 16:30 08/18/16 18:24 (Pill Splitter) 1 ea UNSCH PRN OTHER 08/18/16 16:30 Mupirocin 1 applic 1 applic BID EACH NARE 08/18/16 21:00 08/23/16 20:59 08/20/16 08:24 (Nitroglycerin-Dextrose Inj) 250 ml @ 0 mls/hr TITRATE IV 08/18/16 21:00 Urinary Catheter: No Vascular Central Line Catheter: No A/P Problem List: (1) STEMI (ST elevation myocardial infarction) ICD Code: I21.3 Status: Resolved Plan: This is a 61-year-old male with history of hypertension, dyslipidemia and coronary artery disease with chronically occlude RCA presenting with chest pain found to have multivessel are artery disease Chest pain, STEMI -status post cardiac catheterization 08/18/16 revealed chronically occlude LAD and RCA mode multivessel disease, cardiothoracic surgery consulted for CABG, likely Monday. Continue medical management, continue aspirin, lisinopril, metoprolol, statin, LDL is 134, troponin maxed at 0.06. Lisinopril dose decreased to give room for metoprolol, hydrochlorothiazide also on hold. Adjust as needed. (2) Leukocytosis ICD Code: D72.829 Status: Resolved Plan: Likely stress related, now resolved. Continue to monitor CBC. No signs of infection. (3) Hyperlipidemia ICD Code: E78.5 Status: Chronic Plan: Continue statin. Lipid profile showed triglycerides of 288, cholesterol 240, LDL cholesterol 134, HDL cholesterol 48.1. TSH 1.6 (4) CAD (coronary artery disease) ICD Code: I25.10 Status: Acute Plan: Patient known to have a chronically included RCA. Continue medical management with aspirin, statin, beta tracy and DONNY inhibitor. Problem Qualifiers (1) STEMI (ST elevation myocardial infarction): Qualified Code: I21.11 - ST elevation myocardial infarction involving right coronary artery (2) CAD (coronary artery disease): Qualified Code: I25.110 - Coronary artery disease involving [place] coronary artery of [place] heart with unstable angina pectoris Casey Wright MD Aug 20, 2016 09:34
[2016-08-20] MEDS: ATORVASTATIN 40 MG TAB PO SCH (20:32)
[2016-08-21] VITALS (30 sets, daily range): BP systolic 101–150; BP diastolic 57–102; PULSE 48–68; RESP 18; TEMP 97.7–98.2; O2SAT 94–97
[2016-08-21] MEDS: MUPIROCIN 2% OINT 1 APPLIC/GM SYR EACH NARE SCH ×2 (08:00→21:25)
[2016-08-21] MEDS: METOPROLOL TARTRATE 25 MG TAB PO SCH ×2 (08:00→21:25)
[2016-08-21] MEDS: SODIUM CHLORIDE 0.9% FLUSH 5 ML FLUSH IVF SCH ×2 (08:00→21:26)
[2016-08-21] MEDS: ASPIRIN 81 MG CHEW TAB PO SCH (08:00)
--- NOTE | 2016-08-21 09:47 | HHI.PR ---
Subjective Remarks No major overnight events denies cp/sob [place] vital signs Objective Vitals Vital Signs Date Time Temp Pulse Resp B/P Pulse Ox O2 Delivery O2 Flow Rate FiO2 08/21/16 08:00 56 08/21/16 07:53 97.7 56 18 120/82 94 08/21/16 07:00 60 08/21/16 06:00 54 08/21/16 05:00 68 08/21/16 04:30 98.0 52 18 101/57 96 08/21/16 04:00 52 08/21/16 03:00 64 08/21/16 02:00 53 08/21/16 01:00 48 08/21/16 00:36 98.0 66 18 131/81 96 08/21/16 00:00 60 08/20/16 23:00 60 08/20/16 22:00 54 08/20/16 21:00 63 08/20/16 20:00 71 08/20/16 19:15 97.8 70 18 106/67 96 08/20/16 19:00 92 08/20/16 18:00 60 08/20/16 17:00 62 08/20/16 16:01 61 08/20/16 15:00 97.9 63 18 119/70 96 08/20/16 15:00 65 08/20/16 14:00 63 08/20/16 13:00 63 08/20/16 12:00 60 08/20/16 11:00 60 08/20/16 11:00 97.5 60 18 110/77 94 08/20/16 10:00 68 I/O 08/20/16 08/20/16 08/20/16 08/21/16 08/21/16 08/21/16 07:00 15:00 23:00 07:00 15:00 23:00 Intake Total 720 ml 480 ml 480 ml Output Total 550 ml 400 ml Balance 170 ml 80 ml 480 ml Intake Oral 720 ml 480 ml 480 ml Output Urine Total 550 ml 400 ml # Voids 2 # Bowel Movements 1 Result Diagram: 08/20/16 0530 08/20/16 0530 Imaging Last Impressions Lower Extremity Ultrasound 08/19/16 0000 Signed Impressions: Service Date/Time: Friday, August 19, 2016 09:12 - CONCLUSION: Patent saphenous veins throughout bilaterally Low Lockhart MD Chest CT 08/19/16 0000 Signed Impressions: Service Date/Time: Friday, August 19, 2016 14:31 - CONCLUSION: Ascending aorta mildly dilated to about 4.2 cm. Moderate coronary calcifications. Tortuous aorta. Haroldo Fields MD Carotid Artery Ultrasound 08/19/16 0000 Signed Impressions: Service Date/Time: Friday, August 19, 2016 08:52 - CONCLUSION: Normal examination for a patient of this age. Haroldo Fields MD Chest X-Ray 08/18/16 1455 Signed Impressions: Service Date/Time: August 14:56 - CONCLUSION: No acute disease. Low Lockhart MD Objective Remarks GENERAL: This is a well-nourished, well-developed patient, in no apparent distress. SKIN: No rashes, ecchymoses or lesions. Cool and dry. HEAD: Atraumatic. Normocephalic. No temporal or scalp tenderness. EYES: Pupils equal round and reactive. Extraocular motions intact. No scleral icterus. No injection or drainage. ENT: Nose without bleeding, purulent drainage or septal hematoma. Throat without erythema, tonsillar hypertrophy or exudate. Uvula midline. Airway patent. NECK: Trachea midline. No JVD or lymphadenopathy. Supple, nontender, no meningeal signs. CARDIOVASCULAR: Regular rate and rhythm without murmurs, gallops, or rubs. RESPIRATORY: Clear to auscultation. Breath sounds equal bilaterally. No wheezes , rales, or rhonchi. GASTROINTESTINAL: Abdomen soft, non-tender, nondistended. No hepato-splenomegaly , or palpable masses. No guarding. MUSCULOSKELETAL: Extremities without clubbing, cyanosis, or edema. No joint tenderness, effusion, or edema noted. No calf tenderness. Negative Homans sign bilaterally. NEUROLOGICAL: Awake and alert. Cranial nerves II through XII intact. Motor and sensory grossly within normal limits. Five out of 5 muscle strength in all muscle groups. Normal speech. Procedures Left heart cardiac catheterization on 08/18/16 which showed chronic LAD and RCA stenosis. Medications and IVs Current Medications Medications (Trade) Dose Ordered Sig/[place] Route Start Time Stop Time Status Last Admin (NS Flush) 2 ml BID IVF 08/18/16 21:00 08/21/16 08:00 (NS Flush) 2 ml UNSCH PRN IVF 08/18/16 16:15 (Zofran Inj) 4 mg Q6H PRN IVP 08/18/16 16:15 (Percocet 5-325 Mg) 1 tab Q4H PRN PO 08/18/16 16:15 (Percocet 5-325 Mg) 2 tab Q4H PRN PO 08/18/16 16:15 (Morphine Inj) 2 mg Q30M PRN IV PUSH 08/18/16 16:15 (Aspirin Chew) 81 mg DAILY PO 08/19/16 09:00 08/21/16 08:00 (Atropine Inj) 0.5 mg UNSCH PRN IV 08/18/16 16:15 (Reglan Inj) 10 mg Q4H PRN IV 08/18/16 16:15 (Lopressor) 12.5 mg BID PO 08/18/16 21:00 08/21/16 08:00 Atorvastatin Calcium 40 mg 40 mg HS PO 08/18/16 21:00 08/20/16 20:32 (Nipride Inj/D5W Inj) 250 ml @ 0 mls/hr TITRATE IV 08/18/16 16:30 (Catapres) 0.2 mg Q6H PRN PO 08/18/16 16:30 08/18/16 18:24 (Pill Splitter) 1 ea UNSCH PRN OTHER 08/18/16 16:30 Mupirocin 1 applic 1 applic BID EACH NARE 08/18/16 21:00 08/23/16 20:59 08/21/16 08:00 (Nitroglycerin-Dextrose Inj) 250 ml @ 0 mls/hr TITRATE IV 08/18/16 21:00 Urinary Catheter: No Vascular Central Line Catheter: No A/P Problem List: (1) STEMI (ST elevation myocardial infarction) ICD Code: I21.3 Status: Resolved Plan: This is a 61-year-old male with history of hypertension, dyslipidemia and coronary artery disease with chronically occlude RCA presenting with chest pain found to have multivessel are artery disease Chest pain, STEMI -status post cardiac catheterization 08/18/16 revealed chronically occlude LAD and RCA mode multivessel disease, cardiothoracic surgery consulted for CABG, likely Monday. Continue medical management, continue aspirin, lisinopril, metoprolol, statin, LDL is 134, troponin maxed at 0.06. Lisinopril dose decreased to give room for metoprolol, hydrochlorothiazide also on hold. Adjust as needed. For CABG in am (2) Leukocytosis ICD Code: D72.829 Status: Resolved Plan: Likely stress related, now resolved. Continue to monitor CBC. No signs of infection. (3) Hyperlipidemia ICD Code: E78.5 Status: Chronic Plan: Continue statin. Lipid profile showed triglycerides of 288, cholesterol 240, LDL cholesterol 134, HDL cholesterol 48.1. TSH 1.6 (4) CAD (coronary artery disease) ICD Code: I25.10 Status: Acute Plan: Patient known to have a chronically included RCA. Continue medical management with aspirin, statin, beta tracy and DNONY inhibitor. Assessment and Plan GI prophylaxis: Add PPI DVT prophylaxis: SCD's, no chemoprophylaxis - for or in am. Discharge Planning Continue to monitor in [facility] Problem Qualifiers (1) STEMI (ST elevation myocardial infarction): Qualified Code: I21.11 - ST elevation myocardial infarction involving right coronary artery (2) CAD (coronary artery disease): Qualified Code: I25.110 - Coronary artery disease involving [place] coronary artery of [place] heart with unstable angina pectoris Casey Wright MD Aug 21, 2016 09:47
--- NOTE | 2016-08-21 11:16 | PD.CAR.PN ---
CVT Progress Note Subjective/Hospital Course: sts data discussed with pt RISK SCORES About the STS Risk Calculator Procedure: CAB Only Risk of Mortality: 1.251% Morbidity or Mortality: 14.911% Long Length of Stay: 5.027% Short Length of Stay: 43.517% Permanent Stroke: 0.744% Prolonged Ventilation: 11.471% DSW Infection: 0.674% Renal Failure: 3.022% Reoperation: 4.931% 08/21/16 Denies chest pain Questions regarding CABG addressed Objective: Vital Signs Date Time Temp Pulse Resp B/P Pulse Ox O2 Delivery O2 Flow Rate FiO2 08/21/16 11:05 98.0 55 18 116/82 96 08/21/16 11:00 65 08/21/16 10:26 94 08/21/16 10:00 58 08/21/16 09:00 58 08/21/16 08:00 56 08/21/16 07:53 97.7 56 18 120/82 94 08/21/16 07:00 60 08/21/16 06:00 54 08/21/16 05:00 68 08/21/16 04:30 98.0 52 18 101/57 96 08/21/16 04:00 52 08/21/16 03:00 64 08/21/16 02:00 53 08/21/16 01:00 48 08/21/16 00:36 98.0 66 18 131/81 96 08/21/16 00:00 60 08/20/16 23:00 60 08/20/16 22:00 54 08/20/16 21:00 63 08/20/16 20:00 71 08/20/16 19:15 97.8 70 18 106/67 96 08/20/16 19:00 92 08/20/16 18:00 60 08/20/16 17:00 62 08/20/16 16:01 61 08/20/16 15:00 97.9 63 18 119/70 96 08/20/16 15:00 65 08/20/16 14:00 63 08/20/16 13:00 63 08/20/16 12:00 60 Labs: Laboratory Tests Test 08/21/16 08:40 Blood Type A POSITIVE Antibody Screen NEGATIVE Crossmatch Leukocyte-Reduced Red Blood Cells Blood Bank Comment Result Diagram: 08/20/1652908/20/16529 Imaging: Last Impressions Lower Extremity Ultrasound 08/19/16 0000 Signed Impressions: Service Date/Time: Friday, August 19, 2016 09:12 - CONCLUSION: Patent saphenous veins throughout bilaterally Low Lockhart MD Chest CT 08/19/16 0000 Signed Impressions: Service Date/Time: Friday, August 19, 2016 14:31 - CONCLUSION: Ascending aorta mildly dilated to about 4.2 cm. Moderate coronary calcifications. Tortuous aorta. Haroldo Fields MD Carotid Artery Ultrasound 08/19/16 0000 Signed Impressions: Service Date/Time: Friday, August 19, 2016 08:52 - CONCLUSION: Normal examination for a patient of this age. Haroldo Fields MD Chest X-Ray 08/18/16 1455 Signed Impressions: Service Date/Time: August 14:56 - CONCLUSION: No acute disease. Low Lockhart MD Cardiovascular: RRR Telemetry: NSR Pulmonary: CTA GI/: ERIKAS, NT Plan: Preop CABG for tomorrow Michelle Ramsey MD Aug 21, 2016 11:16
[2016-08-21] MEDS ORDERED: diphenhydrAMINE HCL 25 MG CAP PO ONE (20:30)
[2016-08-21] MEDS: ATORVASTATIN 40 MG TAB PO SCH (21:25)
[2016-08-21] MEDS: cloNIDine HCL 0.1 MG TAB PO PRN (21:25)
[2016-08-22] VITALS (23 sets, daily range): BP systolic 94–139; BP diastolic 38–84; PULSE 45–77; RESP 10–18; TEMP 97.4–98; O2SAT 95–99
[2016-08-22] MEDS ORDERED: DEXMEDETOMIDINE INJ 50 ML IV ONE (05:00)
[2016-08-22] MEDS ORDERED: MAGNESIUM SULFATE 1000 MG/2 ML VIAL (PED) IV ONE (05:00)
[2016-08-22] MEDS ORDERED: VECURONIUM BROMIDE 10 MG VIAL IV ONE (05:00)
[2016-08-22] MEDS ORDERED: ESMOLOL HCL 100 MG/10 ML VIAL IV ONE (05:00)
[2016-08-22] MEDS ORDERED: LIDOCAINE HCL 1% 30 ML VIAL OTHER ONE (05:00)
[2016-08-22] MEDS ORDERED: AMINOCAPROIC ACID INJ 250 MG/ML 20 ML VIAL IV ONE (05:00)
[2016-08-22] MEDS ORDERED: PHENYLEPHRINE HCL 10 MG/ML VIAL IV ONE (05:00)
[2016-08-22] MEDS ORDERED: PROTAMINE SULFATE 250 MG/25 ML VIAL IV ONE ×2 (05:00→12:15)
[2016-08-22] MEDS ORDERED: HEPARIN SODIUM - SQ 10,000 UNITS/ML VIAL ONE (06:18)
[2016-08-22] MEDS ORDERED: HEPARIN SODIUM - IV 10,000 UNITS/10 ML VIAL ONE (06:18)
[2016-08-22] MEDS ORDERED: VANCOMYCIN HCL 1000 MG VIAL ONE (06:18)
[2016-08-22] MEDS ORDERED: POTASSIUM CHLORIDE 40 MEQ/20 ML VIAL ONE (06:59)
[2016-08-22] MEDS: ASPIRIN 81 MG CHEW TAB PO SCH (09:00)
[2016-08-22] MEDS: MUPIROCIN 2% OINT 1 APPLIC/GM SYR EACH NARE SCH ×2 (09:00→21:00)
[2016-08-22] MEDS: METOPROLOL TARTRATE 25 MG TAB PO SCH ×2 (09:00→21:00)
[2016-08-22] MEDS: SODIUM CHLORIDE 0.9% FLUSH 5 ML FLUSH IVF SCH (09:00)
--- NOTE | 2016-08-22 09:46 | HHI.PR ---
Subjective Remarks deferred entry, patient seen at 8 am no major overnight events patient denies cp/sob stable vital signs Objective Vitals Vital Signs Date Time Temp Pulse Resp B/P Pulse Ox O2 Delivery O2 Flow Rate FiO2 08/22/16 06:00 56 08/22/16 05:30 97.9 54 18 122/78 98 08/22/16 05:00 55 08/22/16 04:00 47 08/22/16 03:00 54 08/22/16 02:00 54 08/22/16 01:00 55 08/22/16 00:00 45 08/22/16 00:00 98.0 58 18 139/84 98 08/21/16 23:00 58 08/21/16 22:00 58 08/21/16 21:00 57 08/21/16 20:00 62 08/21/16 20:00 98.2 68 18 150/102 97 08/21/16 19:00 64 08/21/16 18:13 97 21 08/21/16 18:00 65 08/21/16 17:00 56 08/21/16 16:18 58 08/21/16 15:00 60 08/21/16 15:00 98.0 62 18 136/92 97 08/21/16 14:00 62 08/21/16 13:00 62 08/21/16 12:00 59 08/21/16 11:05 98.0 55 18 116/82 96 08/21/16 11:00 65 08/21/16 10:26 94 08/21/16 10:00 58 I/O 08/21/16 08/21/16 08/21/16 08/22/16 08/22/16 08/22/16 07:00 15:00 23:00 07:00 15:00 23:00 Intake Total 480 ml 480 ml 480 ml Output Total 900 ml Balance 480 ml -420 ml 480 ml Intake Oral 480 ml 480 ml 480 ml Output Urine Total 900 ml # Voids 2 2 # Bowel Movements 1 Result Diagram: 08/20/16 0530 08/20/16 0530 Imaging Last Impressions Lower Extremity Ultrasound 08/19/16 0000 Signed Impressions: Service Date/Time: Friday, August 19, 2016 09:12 - CONCLUSION: Patent saphenous veins throughout bilaterally Low Lockhart MD Chest CT 08/19/16 0000 Signed Impressions: Service Date/Time: Friday, August 19, 2016 14:31 - CONCLUSION: Ascending aorta mildly dilated to about 4.2 cm. Moderate coronary calcifications. Tortuous aorta. Haroldo Fields MD Carotid Artery Ultrasound 08/19/16 0000 Signed Impressions: Service Date/Time: Friday, August 19, 2016 08:52 - CONCLUSION: Normal examination for a patient of this age. Haroldo Fields MD Chest X-Ray 08/18/16 1455 Signed Impressions: Service Date/Time: August 14:56 - CONCLUSION: No acute disease. Low Lockhart MD Objective Remarks GENERAL: This is a well-nourished, well-developed patient, in no apparent distress. SKIN: No rashes, ecchymoses or lesions. Cool and dry. HEAD: Atraumatic. Normocephalic. No temporal or scalp tenderness. EYES: Pupils equal round and reactive. Extraocular motions intact. No scleral icterus. No injection or drainage. ENT: Nose without bleeding, purulent drainage or septal hematoma. Throat without erythema, tonsillar hypertrophy or exudate. Uvula midline. Airway patent. NECK: Trachea midline. No JVD or lymphadenopathy. Supple, nontender, no meningeal signs. CARDIOVASCULAR: Regular rate and rhythm without murmurs, gallops, or rubs. RESPIRATORY: Clear to auscultation. Breath sounds equal bilaterally. No wheezes , rales, or rhonchi. GASTROINTESTINAL: Abdomen soft, non-tender, nondistended. No hepato-splenomegaly , or palpable masses. No guarding. MUSCULOSKELETAL: Extremities without clubbing, cyanosis, or edema. No joint tenderness, effusion, or edema noted. No calf tenderness. Negative Homans sign bilaterally. NEUROLOGICAL: Awake and alert. Cranial nerves II through XII intact. Motor and sensory grossly within normal limits. Five out of 5 muscle strength in all muscle groups. Normal speech. Procedures Left heart cardiac catheterization on 08/18/16 which showed chronic LAD and RCA stenosis. Medications and IVs Current Medications Medications (Trade) Dose Ordered Sig/[place] Route Start Time Stop Time Status Last Admin (NS Flush) 2 ml BID IVF 08/18/16 21:00 08/21/16 21:26 (NS Flush) 2 ml UNSCH PRN IVF 08/18/16 16:15 (Zofran Inj) 4 mg Q6H PRN IVP 08/18/16 16:15 (Percocet 5-325 Mg) 1 tab Q4H PRN PO 08/18/16 16:15 (Percocet 5-325 Mg) 2 tab Q4H PRN PO 08/18/16 16:15 (Morphine Inj) 2 mg Q30M PRN IV PUSH 08/18/16 16:15 (Aspirin Chew) 81 mg DAILY PO 08/19/16 09:00 08/21/16 08:00 (Atropine Inj) 0.5 mg UNSCH PRN IV 08/18/16 16:15 (Reglan Inj) 10 mg Q4H PRN IV 08/18/16 16:15 (Lopressor) 12.5 mg BID PO 08/18/16 21:00 08/21/16 21:25 Atorvastatin Calcium 40 mg 40 mg HS PO 08/18/16 21:00 08/21/16 21:25 (Nipride Inj/D5W Inj) 250 ml @ 0 mls/hr TITRATE IV 08/18/16 16:30 (Catapres) 0.2 mg Q6H PRN PO 08/18/16 16:30 08/21/16 21:25 (Pill Splitter) 1 ea UNSCH PRN OTHER 08/18/16 16:30 Mupirocin 1 applic 1 applic BID EACH NARE 08/18/16 21:00 08/23/16 20:59 08/21/16 21:25 (Nitroglycerin-Dextrose Inj) 250 ml @ 0 mls/hr TITRATE IV 08/18/16 21:00 A/P Problem List: (1) STEMI (ST elevation myocardial infarction) ICD Code: I21.3 Status: Resolved (2) Leukocytosis ICD Code: D72.829 Status: Resolved (3) Hyperlipidemia ICD Code: E78.5 Status: Chronic (4) CAD (coronary artery disease) ICD Code: I25.10 Status: Acute Assessment and Plan (1) STEMI (ST elevation myocardial infarction) Plan: This is a 61-year-old male with history of hypertension, dyslipidemia and coronary artery disease with chronically occlude RCA presenting with chest pain found to have multivessel are artery disease Chest pain, STEMI -status post cardiac catheterization 08/18/16 revealed chronically occlude LAD and RCA mode multivessel disease, cardiothoracic surgery consulted for CABG, likely Monday. Continue medical management, continue aspirin, lisinopril, metoprolol, statin, LDL is 134, troponin maxed at 0.06. Lisinopril dose decreased to give room for metoprolol, hydrochlorothiazide also on hold. Adjust as needed. For CABG today (2) Leukocytosis Plan: Likely stress related, now resolved. Continue to monitor CBC. No signs of infection. (3) Hyperlipidemia Plan: Continue statin. Lipid profile showed triglycerides of 288, cholesterol 240, LDL cholesterol 134, HDL cholesterol 48.1. TSH 1.6 (4) CAD (coronary artery disease) Plan: Patient known to have a chronically included RCA. Continue medical management with aspirin, statin, beta tracy and DONNY inhibitor. GI prophylaxis: Add PPI DVT prophylaxis: SCD's, no chemoprophylaxis - for or in am. Discharge Planning Continue to monitor in [facility] Problem Qualifiers (1) STEMI (ST elevation myocardial infarction): Qualified Code: I21.11 - ST elevation myocardial infarction involving right coronary artery (2) CAD (coronary artery disease): Qualified Code: I25.110 - Coronary artery disease involving [place] coronary artery of [place] heart with unstable angina pectoris Casey Wright MD Aug 22, 2016 09:46
--- NOTE | 2016-08-22 11:08 | PD.OP ---
cc: Vince Esquivel MD; Isreal Sow MD; En Valentino MD Operative Report Date of Surgery: Aug 22, 2016 Preoperative Diagnosis: Postoperative Diagnosis: Procedure: 1. Urgent Off-pump Coronary Artery Bypass Grafting x 3 with left internal mammary artery (JENKINS) to left anterior descending (LAD), reverse saphenous vein graft to D1, reverse saphenous vein graft to the distal RCA 2. Right Leg Endoscopic Vein [place] 3. Intraoperative Vein Mapping. . Surgeon: Vince Esquivel Stacker Straightener(s): Bia Webster Operation and Findings: PREPROCEDURE DIAGNOSES 1. Severe Multi Vessel Coronary Artery Disease. 2. Acute Myocardial Infarction 3. Severe Left Ventricular Dysfunction (EF 20-25%) POSTPROCEDURE DIAGNOSES Same SURGICAL PROCEDURE 1. Urgent Off-pump Coronary Artery Bypass Grafting x 3 with left internal mammary artery (JENKINS) to left anterior descending (LAD), reverse saphenous vein graft to D1, reverse saphenous vein graft to the distal RCA 2. Right Leg Endoscopic Vein [place] 3. Intraoperative Vein Mapping. SURGEON Vince Esquivel MD RETAIL SHIFT LEADER MANAN [place] ANESTHESIA General endotracheal . ECOLOGICAL ECONOMIST Tripp Lugo MD PREPARATION ChloraPrep. COUNTS Needle, sponge, and instrument counts were correct. DRAINS Two 32-[place] mediastinal tubes. COMPLICATIONS None. INDICATIONS FOR PROCEDURE The patient is a 61-year-old presenting with chest pain. Patient was noted to have multi-vessel coronary artery disease. The patient is being brought to the operating room for urgent surgical revascularization therapy of his coronary lesions. PROCEDURE Patient was brought to the operating room and placed supine on the OR table. Following the induction of adequate general endotracheal anesthesia and placement of appropriate monitoring devices, intraoperative vein mapping was performed which revealed suitable-caliber conduit in bilateral lower extremities. The patient was then prepped and draped in standard sterile fashion. Next, 2500 units of intravenous heparin was given. The right greater saphenous vein was harvested endoscopically. This appeared to be a useable- caliber conduit. Simultaneously, a median sternotomy was performed and the JENKINS was harvested as a pedicle from the Subclavian vein down to its bifurcation. The patient was systemically heparinized and anticoagulation monitored by serial ACT measurements. The internal mammary artery had good pulsatile flow in it and was a decent-caliber conduit. The pericardium was then divided and targets analyzed. The coronary arteries were very diffusely diseased and heavily calcified. Also, the heart was noted to be very enlarged and dilated with severe biventricular dysfunction, correlating with the BRIGETTE findings. At this point, all anastomoses were performed in a beating-heart fashion using the Maquet stabilizing system. The left internal mammary artery was anastomosed to the mid LAD in an end-to-side fashion using 7-0 Prolene. Segment of saphenous vein graft was then anastomosed to the D1 in an end-to-side fashion using 7-0 Prolene. The final segment was anastomosed to the distal RCA in an end-to-side fashion using a 7-0 Prolene in a running fashion. The proximal anastomoses were then constructed to the ascending aorta in a running manner using 6-0 Prolene. All anastomotic sites were inspected and appeared to be hemostatic and patent. Protamine solution was given. Strict hemostasis was assured. The closure was undertaken. 2 chest tubes were placed. The pericardium was reapproximated in the midline. The sternum was approximated using sternal wires. The muscular and fascial layer were then closed in 3 layers. The endoscopic vein harvest site was closed in 2 layers. The patient tolerated the procedure well and was transferred to CVICU in stable condition. Vince Esquivel MD Aug 22, 2016 11:08
[2016-08-22] MEDS ORDERED: POTASSIUM CHLOR 20 MEQ PREMIX 100 ML ONE (11:46)
[2016-08-22] MEDS ORDERED: LACTATED RINGER'S 1000 ML INJ 500 ML IV PRN (11:47)
[2016-08-22] MEDS: DOBUTamine PREMIX DRIP 250 ML IV SCH (11:47)
[2016-08-22] MEDS ORDERED: fentaNYL CITRATE 1000 MCG/20 ML VIAL ONE (11:49)
[2016-08-22] MEDS ORDERED: MIDAZOLAM HCL 5 MG/5 ML VIAL ONE (11:50)
[2016-08-22] MEDS ORDERED: MAGNESIUM SULFATE INJ 2 GM in SODIUM CHLORIDE 0.9% INJ 100 ML IV PRN ×4 (12:00)
[2016-08-22] MEDS ORDERED: ACETAMINOPHEN 650 MG SUPP RECTAL PRN (12:00)
[2016-08-22] MEDS ORDERED: CLEVIDIPINE INJ 50 ML IV SCH (12:00)
[2016-08-22] MEDS ORDERED: SODIUM CHLORIDE 0.9% FLUSH 5 ML FLUSH IV FLUSH PRN (12:00)
[2016-08-22] MEDS ORDERED: ACETAMINOPHEN 325 MG TAB PO PRN (12:00)
[2016-08-22] MEDS ORDERED: Post-op Orders (for Pharmacy) MISC OTHER ONE (12:00)
[2016-08-22] MEDS ORDERED: METOPROLOL TARTRATE 5 MG/5 ML VIAL IV PUSH PRN (12:00)
[2016-08-22] MEDS ORDERED: POTASSIUM CHLORIDE 20 MEQ CONTROLLED RELEASE TAB PO PRN ×2 (12:00)
[2016-08-22] MEDS ORDERED: MEPERIDINE HCL 25 MG/ML VIAL IV PRN (12:00)
[2016-08-22] MEDS ORDERED: PHENYLEPHRINE INJ 40 MG in DEXTROSE 5% IN WATE 500 ML INJ 496 ML IV SCH ×2 (12:00)
[2016-08-22] MEDS ORDERED: CALCIUM CHLORIDE INJ 1 GM in SODIUM CHLORIDE 0.9% INJ 100 ML IV PRN (12:00)
[2016-08-22] MEDS ORDERED: CALCIUM CHLORIDE 10% 1 GRAM/10 ML VIAL IV PRN (12:00)
[2016-08-22] MEDS ORDERED: DOPamine INJ PREMIX 500 ML IV SCH (12:00)
[2016-08-22] MEDS ORDERED: DEXTROSE 50% IN WATER 50 ML VIAL(D50) IV PUSH PRN (12:00)
[2016-08-22] MEDS ORDERED: NITROGLYCERIN-DEXTROSE INJ 250 ML IV SCH (12:00)
[2016-08-22] MEDS ORDERED: EPINEPHrine (1:1000) INJ 4 MG in DEXTROSE 5% IN WATER INJ 246 ML IV SCH ×2 (12:00)
[2016-08-22] MEDS ORDERED: ONDANSETRON HCL 4 MG/2 ML VIAL IV PUSH PRN (12:00)
[2016-08-22] MEDS ORDERED: POTASSIUM CHLOR 20 MEQ PREMIX 100 ML IV PRN ×2 (12:00)
[2016-08-22] MEDS ORDERED: MORPHINE SULFATE 4 MG/ML INJ IV PRN (12:00)
[2016-08-22] MEDS ORDERED: DEXMEDETOMIDINE INJ 50 ML IV SCH (12:00)
[2016-08-22] MEDS ORDERED: INSULIN REGULAR (IV INFUSION) 100 UNITS in SODIUM CHLORIDE 0.9% INJ 99 ML IV SCH (12:00)
[2016-08-22] MEDS ORDERED: hydrALAZINE HCL 20 MG/ML VIAL IV PRN (12:00)
[2016-08-22] MEDS: ACETAMINOPHEN 1000 MG/100 ML VIAL IV SCH ×2 (12:12→19:00)
[2016-08-22] MEDS: POTASSIUM CHLOR 20 MEQ PREMIX 100 ML IV PRN (12:13)
[2016-08-22] MEDS ORDERED: LACTATED RINGER'S 1000 ML INJ 1,000 ML IV ONE (12:15)
[2016-08-22] MEDS ORDERED: RESP: RACEPINEPHRINE 2.25% 0.5 ML NEB NEB PRN (13:00)
[2016-08-22] MEDS ORDERED: RESP: ALBUTEROL 2.5 MG/IPRATROPIUM 0.5 MG NEB (PRN) NEB (13:00)
[2016-08-22] MEDS: KETOROLAC TROMETHAMINE 30 MG/ML (IVP) VIAL IV PUSH PRN (13:45)
--- NOTE | 2016-08-22 14:21 | RADRPT ---
EXAM DATE/TIME: 08/22/2016 12:57 [facility] COMPARISON: CT THORAX W/O CONTRAST, August 19, 2016, 14:31. INDICATIONS : Post op CABG MEDICAL HISTORY : Cardiovascular disease. SURGICAL HISTORY : CABG. ENCOUNTER: Subsequent ACUITY: 2 days PAIN SCORE: 0/10 LOCATION: Bilateral chest FINDINGS: Single AP portable semiupright view of the chest demonstrates post surgical changes related to CABG. There are 2 chest tubes identified. No evidence of pneumothorax. Mild left basilar atelectasis. Heart size is normal. Osseous structures are intact. CONCLUSION: Status post interval CABG with expected postsurgical change. Minimal left basilar ate lectasis. Shelia Alvarenga MD on August 22, 2016 at 13:45 Board Certified Radiologist. This report was verified electronically.
[2016-08-22] MEDS: RESP: ALBUTEROL 2.5 MG/IPRATROPIUM 0.5 MG NEB (SCH) NEB ×3 (16:00→21:05)
[2016-08-22] MEDS: ceFAZolin 2 GM PREMIX 50 ML IV SCH ×2 (16:07→23:02)
[2016-08-22] MEDS: AMIODARONE 200 MG TAB PO SCH (21:28)
[2016-08-22] MEDS: ATORVASTATIN 40 MG TAB PO SCH (21:29)
[2016-08-22] MEDS: SODIUM CHLORIDE 0.9% FLUSH 5 ML FLUSH IV FLUSH SCH (21:29)
[2016-08-22] MEDS: oxyCODONE/ACETAMINOPHEN 5 MG/325 MG TAB PO PRN (23:02)
[2016-08-23] VITALS (13 sets, daily range): BP systolic 103–116; BP diastolic 52–73; PULSE 59–93; RESP 15–18; TEMP 97.3–98; O2SAT 96–100
[2016-08-23] MEDS: ACETAMINOPHEN 1000 MG/100 ML VIAL IV SCH ×2 (01:00→07:00)
[2016-08-23] MEDS: DOBUTamine PREMIX DRIP 250 ML IV SCH (02:49)
[2016-08-23] MEDS: oxyCODONE/ACETAMINOPHEN 5 MG/325 MG TAB PO PRN ×4 (03:36→20:11)
[2016-08-23] MEDS: RESP: ALBUTEROL 2.5 MG/IPRATROPIUM 0.5 MG NEB (SCH) NEB ×2 (03:46→13:53)
[2016-08-23 05:41] LABS: HEMATOCRIT 34.9 % (39.0-51.0); MEAN CELL VOLUME 95.2 FL (80.0-100.0); MEAN CORPUSCULAR HEMOGLOBIN 32.4 PG (27.0-34.0); MEAN CORPUSCULAR HGB CONC 34.1 % (32.0-36.0); PLATELET COUNT 154 TH/MM3 (150-450); RED BLOOD COUNT 3.67 MIL/MM3 (4.50-5.90); REVIEW FLAG FINAL; WHITE BLOOD COUNT 11.4 TH/MM3 (4.0-11.0)
[2016-08-23] MEDS: PANTOPRAZOLE SOD 40 MG DELAYED RELEASE TAB PO SCH (05:56)
[2016-08-23] MEDS: ALBUMIN HUMAN 5% 12.5 GM/250 ML BOTTLE IV PRN ×2 (05:56→06:21)
[2016-08-23 06:01] LABS: MAGNESIUM 1.9 MG/DL (1.5-2.5); POTASSIUM 3.6 MEQ/L (3.5-5.1)
[2016-08-23] MEDS: POTASSIUM CHLOR 20 MEQ PREMIX 100 ML IV PRN (06:20)
--- NOTE | 2016-08-23 06:43 | RADRPT ---
EXAM DATE/TIME: 08/23/2016 05:33 [facility] COMPARISON: CHEST SINGLE AP, August 22, 2016, 12:57. INDICATIONS : Post CABG. MEDICAL HISTORY : Hypertension. SURGICAL HISTORY : CABG. ENCOUNTER: Subsequent ACUITY: 4 - 6 days PAIN SCORE: Non-responsive. LOCATION: Bilateral chest FINDINGS: A single view of the chest demonstrates mild cardiomegaly and and recent CABG. Mediastinal and left-s ided chest tube are stable. No definite pneumothorax. Left subclavian central line is also stable. Th e cardiomediastinal contours are unremarkable. Osseous structures are intact. CONCLUSION: Stable chest, status post CABG. Zack Shields MD on August 23, 2016 at 6:40 Board Certified Radiologist. This report was verified electronically.
[2016-08-23] MEDS: KETOROLAC TROMETHAMINE 30 MG/ML (IVP) VIAL IV PUSH PRN ×2 (07:44→16:01)
[2016-08-23] MEDS: ceFAZolin 2 GM PREMIX 50 ML IV SCH ×3 (07:45→23:46)
[2016-08-23] MEDS ORDERED: BISACODYL EC 5 MG TABEC PO PRN (08:30)
[2016-08-23] MEDS ORDERED: GLUCAGON 1 MG/ML VIAL OTHER PRN (08:30)
[2016-08-23] MEDS ORDERED: SOD PHOSPHATE/SOD BIPHOSPHATE (ADULT) ENEMA 133ML RECTAL PRN (08:30)
[2016-08-23] MEDS ORDERED: BISACODYL 10 MG SUPP RECTAL PRN (08:30)
[2016-08-23] MEDS ORDERED: DEXTROSE 50% IN WATER 50 ML VIAL(D50) IV PRN (08:30)
--- NOTE | 2016-08-23 08:45 | PD.CAR.PN ---
CVT Progress Note CVT: POD #: 1 Subjective/Hospital Course: 61 / male admitted with chest pain, HX of CAD/IN/ underwent Heart cath by Dr Sow, multivessel disease/ EF 25% by echo PMH: psoriasis, HTN, HLP 08/21/16 Denies chest pain Questions regarding CABG addressed 08/22 surgery Urgent Off-pump Coronary Artery Bypass Grafting x 3 with left internal mammary artery (JENKINS) to left anterior descending (LAD), reverse saphenous vein graft to D1, reverse saphenous vein graft to the distal RCA, Right Leg Endoscopic Vein [place] 08/23 extubated post surgery had air leak in one of chest tubes yesterday chest tubes to individual pleuravac, no further air leak noted on nasal cannula c/o left eye feeling scratchy/ some corneal injection noted stable for transfer to stepdown . Objective: GENERAL: well nourished SKIN: Warm and dry.dressing in place to mid sternum, anson wrap to right leg HEAD: Normocephalic. EYES: No scleral icterus. No injection or drainage. NECK: Supple, trachea midline. No JVD or lymphadenopathy. CARDIOVASCULAR: Regular rate and rhythm without murmurs, gallops, or rubs. RESPIRATORY: Breath sounds equal bilaterally. No accessory muscle use. chest tube x 2 , left pleural and mediastinal tube in place, no air leak left drained 30cc/ 12 hr, mediastinal drained 240cc/ 12 hrs GASTROINTESTINAL: Abdomen soft, non-tender, nondistended. MUSCULOSKELETAL: No cyanosis, or edema. BACK: Nontender without obvious deformity. No CVA tenderness. Vital Signs Date Time Temp Pulse Resp B/P Pulse Ox O2 Delivery O2 Flow Rate FiO2 08/23/16 07:37 98 Nasal Cannula 3.00 08/23/16 07:00 66 08/23/16 07:00 95 Nasal Cannula 3.00 08/23/16 07:00 97.3 66 18 111/71 98 116/52 08/23/16 03:48 59 08/23/16 03:48 97.9 59 15 103/56 96 08/22/16 23:28 66 08/22/16 23:28 97.8 66 16 123/58 96 08/22/16 21:06 97 Nasal Cannula 3.00 08/22/16 19:17 95 Nasal Cannula 2.00 08/22/16 19:17 97.8 66 18 94/62 98 113/69 08/22/16 19:00 66 08/22/16 18:00 65 08/22/16 17:00 64 08/22/16 16:00 69 08/22/16 15:00 97.4 77 16 116/67 98 08/22/16 15:00 77 08/22/16 14:00 63 08/22/16 13:00 61 08/22/16 12:45 77 08/22/16 12:05 95 Nasal Cannula 3.00 08/22/16 12:02 98 Nasal Cannula 2 08/22/16 11:31 96 50 08/22/16 11:24 95 50 08/22/16 11:23 97.6 67 10 124/80 99 123/38 Labs: Laboratory Tests Test 08/23/16 05:06 White Blood Count 11.4 TH/MM3 (4.0-11.0) Red Blood Count 3.67 MIL/MM3 (4.50-5.90) Hemoglobin 11.9 GM/DL (13.0-17.0) Hematocrit 34.9 % (39.0-51.0) Mean Corpuscular Volume 95.2 FL (80.0-100.0) Mean Corpuscular Hemoglobin 32.4 PG (27.0-34.0) Mean Corpuscular Hemoglobin 34.1 % Concent (32.0-36.0) Red Cell Distribution Width 13.0 % (11.6-17.2) Platelet Count 154 TH/MM3 (150-450) Mean Platelet Volume 8.9 FL (7.0-11.0) Sodium Level 139 MEQ/L (136-145) Potassium Level 3.6 MEQ/L (3.5-5.1) Chloride Level 107 MEQ/L (98-107) Carbon Dioxide Level 24.0 MEQ/L (21.0-32.0) Anion Gap 8 MEQ/L (5-15) Blood Urea Nitrogen 13 MG/DL (7-18) Creatinine 0.84 MG/DL (0.60-1.30) Estimat Glomerular Filtration 93 ML/MIN (>89) Rate Random Glucose 111 MG/DL (74-106) Calcium Level 8.2 MG/DL (8.5-10.1) Phosphorus Level 3.0 MG/DL (2.5-4.9) Magnesium Level 1.9 MG/DL (1.5-2.5) Result Diagram: 08/23/16 0506 08/23/16 0506 Telemetry: NSR (1) CAD (coronary artery disease) (2) S/P CABG x 3 Plan: ASA, statin, plavix, start BB this evening consider gentle diuresis in am aggressive pulm toileting OOB/ PT (3) STEMI (ST elevation myocardial infarction) (4) Ischemic cardiomyopathy Plan: may need life vest / anson / will discuss with Dr Sow (5) Hyperlipidemia Plan: on statin Problem Qualifiers (1) CAD (coronary artery disease): Qualified Code: I25.110 - Coronary artery disease involving [place] coronary artery of [place] heart with unstable angina pectoris (2) STEMI (ST elevation myocardial infarction): Qualified Code: I21.11 - ST elevation myocardial infarction involving right coronary artery Shelia Vasquez Aug 23, 2016 08:45
[2016-08-23] MEDS: MAGNESIUM HYDROXIDE SUSP 30 ML CUP PO PRN (09:37)
[2016-08-23] MEDS: MUPIROCIN 2% OINT 1 APPLIC/GM SYR EACH NARE SCH (09:37)
[2016-08-23] MEDS: ASPIRIN 81 MG CHEW TAB PO SCH (09:38)
[2016-08-23] MEDS: AMIODARONE 200 MG TAB PO SCH ×2 (09:38→21:33)
[2016-08-23] MEDS: CLOPIDOGREL 75 MG TAB PO SCH (09:38)
[2016-08-23] MEDS: MULTIVITAMINS/MINERALS THERAPEUTIC TAB PO SCH (09:38)
[2016-08-23] MEDS: METOPROLOL TARTRATE 25 MG TAB PO SCH ×2 (09:38→21:33)
[2016-08-23] MEDS: SODIUM CHLORIDE 0.9% FLUSH 5 ML FLUSH IV FLUSH SCH ×2 (09:39→21:33)
[2016-08-23] MEDS: INSULIN ASPART SUPPLEMENTAL SCALE SQ SCH ×4 (10:00→21:33)
--- NOTE | 2016-08-23 11:32 | HHI.PR ---
Subjective Remarks Patient c/o left eye disturbance with some redness states he sees a blue discoloration, denies eye pain states chest is sore denies cough denies diarrhea chest tubes draining Objective Vitals Vital Signs Date Time Temp Pulse Resp B/P Pulse Ox O2 Delivery O2 Flow Rate FiO2 08/23/16 07:37 98 Nasal Cannula 3.00 08/23/16 07:00 66 08/23/16 07:00 95 Nasal Cannula 3.00 08/23/16 07:00 97.3 66 18 111/71 98 116/52 08/23/16 03:48 59 08/23/16 03:48 97.9 59 15 103/56 96 08/22/16 23:28 66 08/22/16 23:28 97.8 66 16 123/58 96 08/22/16 21:06 97 Nasal Cannula 3.00 08/22/16 19:17 95 Nasal Cannula 2.00 08/22/16 19:17 97.8 66 18 94/62 98 113/69 08/22/16 19:00 66 08/22/16 18:00 65 08/22/16 17:00 64 08/22/16 16:00 69 08/22/16 15:00 97.4 77 16 116/67 98 08/22/16 15:00 77 08/22/16 14:00 63 08/22/16 13:00 61 08/22/16 12:45 77 08/22/16 12:05 95 Nasal Cannula 3.00 08/22/16 12:02 98 Nasal Cannula 2 08/22/16 11:31 96 50 I/O 08/22/16 08/22/16 08/22/16 08/23/16 08/23/16 08/23/16 07:00 15:00 23:00 07:00 15:00 23:00 Intake Total 480 ml 2135 ml 2004 ml Output Total 760 ml 770 ml Balance 480 ml 1375 ml 1234 ml Intake Oral 480 ml 120 ml 480 ml IV Total 2015 ml TPN/PPN 1524 ml Output Urine Total 530 ml 500 ml Chest Tube Drainage Total 230 ml 270 ml # Voids 2 # Bowel Movements 0 0 Result Diagram: 08/23/16 0506 08/23/16 0506 Imaging Last Impressions Chest X-Ray 08/23/16 0500 Signed Impressions: Service Date/Time: Tuesday, August 23, 2016 05:33 - CONCLUSION: Stable chest , status post CABG. Zack Shields MD Lower Extremity Ultrasound 08/19/16 0000 Signed Impressions: Service Date/Time: Friday, August 19, 2016 09:12 - CONCLUSION: Patent saphenous veins throughout bilaterally Low Lockhart MD Chest CT 08/19/16 0000 Signed Impressions: Service Date/Time: Friday, August 19, 2016 14:31 - CONCLUSION: Ascending aorta mildly dilated to about 4.2 cm. Moderate coronary calcifications. Tortuous aorta. Haroldo Fields MD Carotid Artery Ultrasound 08/19/16 0000 Signed Impressions: Service Date/Time: Friday, August 19, 2016 08:52 - CONCLUSION: Normal examination for a patient of this age. Haroldo Fields MD Objective Remarks GENERAL: This is a well-nourished, well-developed patient, in no apparent distress. SKIN: No rashes, ecchymoses or lesions. Cool and dry. HEAD: Atraumatic. Normocephalic. No temporal or scalp tenderness. EYES: Pupils equal round and reactive. Extraocular motions intact. No scleral icterus. Left eye is injected. No purulent discharge seen. ENT: Nose without bleeding, purulent drainage or septal hematoma. Throat without erythema, tonsillar hypertrophy or exudate. Uvula midline. Airway patent. NECK: Trachea midline. No JVD or lymphadenopathy. Supple, nontender, no meningeal signs. CARDIOVASCULAR: Regular rate and rhythm without murmurs, gallops, or rubs. chest tube in place. dressing on chest id C/D/I. RESPIRATORY: Clear to auscultation. Breath sounds equal bilaterally. No wheezes , rales, or rhonchi. GASTROINTESTINAL: Abdomen soft, non-tender, nondistended. No hepato-splenomegaly , or palpable masses. No guarding. MUSCULOSKELETAL: Extremities without clubbing, cyanosis, or edema. No joint tenderness, effusion, or edema noted. No calf tenderness. Negative Homans sign bilaterally. NEUROLOGICAL: Awake and alert. Cranial nerves II through XII intact. Motor and sensory grossly within normal limits. Five out of 5 muscle strength in all muscle groups. Normal speech. Procedures 08/22/2016 Urgent Off-pump Coronary Artery Bypass Grafting x 3 with left internal mammary artery (JENKINS) to left anterior descending (LAD), reverse saphenous vein graft to D1, reverse saphenous vein graft to the distal RCA, Right Leg Endoscopic Vein [place] Medications and IVs Current Medications Medications (Trade) Dose Ordered Sig/[place] Route Start Time Stop Time Status Last Admin (Reglan Inj) 10 mg Q4H PRN IV 08/18/16 16:15 (Lopressor) 12.5 mg BID PO 08/18/16 21:00 08/23/16 09:38 (Lipitor) 40 mg HS PO 08/18/16 21:00 08/22/16 21:29 (Pill Splitter) 1 ea UNSCH PRN OTHER 08/18/16 16:30 (Bactroban Nasal 2% Oint) 1 applic BID EACH NARE 08/18/16 21:00 08/23/16 20:59 08/23/16 09:37 (NS Flush) 2 ml BID IV FLUSH 08/22/16 21:00 08/23/16 09:39 (NS Flush) 2 ml UNSCH PRN IV FLUSH 08/22/16 12:00 (Aspirin Chew) 81 mg DAILY PO 08/23/16 09:00 08/23/16 09:38 (Plavix) 75 mg DAILY PO 08/23/16 09:00 08/23/16 09:38 (Protonix) 40 mg DAILY@06 PO 08/23/16 06:00 08/23/16 05:56 (Cordarone) 200 mg Q12HR PO 08/22/16 21:00 08/23/16 09:38 (Tylenol) 650 mg Q4H PRN PO 08/22/16 12:00 (Percocet 5-325 Mg) 1 tab Q3H PRN PO 08/22/16 12:00 08/23/16 10:46 (Percocet 5-325 Mg) 2 tab Q3H PRN PO 08/22/16 12:00 08/23/16 03:36 (Toradol Inj) 15 mg Q6H PRN IV PUSH 08/22/16 12:00 08/24/16 11:59 08/23/16 07:44 Ondansetron HCl 4 mg 4 mg Q6H PRN IV PUSH 08/22/16 12:00 Magnesium Sulfate 2 gm/Sodium Chloride 104 ml @ 100 mls/hr UNSCH PRN IV 08/22/16 12:00 (Magnesium Sulfate Inj/NS Inj) 104 ml @ 50 mls/hr UNSCH PRN IV 08/22/16 12:00 08/23/16 06:42 Dextrose 25 ml 25 ml UNSCH PRN IV PUSH 08/22/16 12:00 (Ancef 2 Gm Premix) 50 ml @ 100 mls/hr Q8H IV 08/22/16 16:00 08/24/16 00:29 08/23/16 07:45 (Colace) 100 mg BID PO 08/24/16 09:00 (Theragran M Tab) 1 tab DAILY PO 08/23/16 09:00 08/23/16 09:38 (Milk Of Magnesia Liq) 30 ml DAILY PRN PO 08/23/16 08:30 08/23/16 09:37 (Dulcolax Ec) 5 mg UNSCH PRN PO 08/23/16 08:30 (Miralax) 17 gm DAILY PO 08/24/16 09:00 (Fleets Enema (Adult)) 133 ml UNSCH PRN RECTAL 08/23/16 08:30 (NovoLOG SUPPLEMENTAL SCALE) 1 02,06,10,14,18,22 SQ 08/23/16 10:00 (D50w (Vial) Inj) 25 ml UNSCH PRN IV 08/23/16 08:30 (Glucagon Inj) 1 mg UNSCH PRN OTHER 08/23/16 08:30 (Ilotycin 0.5% Opth Oint) 1 applic Q6HR LEFT EYE 08/23/16 12:00 A/P Problem List: (1) STEMI (ST elevation myocardial infarction) ICD Code: I21.3 Status: Resolved Plan: This is a 61-year-old male with history of hypertension, dyslipidemia and coronary artery disease with chronically occlude RCA presenting with chest pain found to have multivessel are artery disease Chest pain, STEMI -status post cardiac catheterization 08/18/16 revealed chronically occlude LAD and RCA mode multivessel disease, cardiothoracic surgery consulted for CABG, likely Monday. Continue medical management, continue aspirin, lisinopril, metoprolol, statin, LDL is 134, troponin maxed at 0.06. Lisinopril dose decreased to give room for metoprolol, hydrochlorothiazide also on hold. Adjust as needed. 08/23 Urgent Off-pump Coronary Artery Bypass Grafting x 3 with left internal mammary artery (JENKINS) to left anterior descending (LAD), reverse saphenous vein graft to D1, reverse saphenous vein graft to the distal RCA, Right Leg Endoscopic Vein [place] performed on 08/22. Patient being followed by CT surgery. follow up recommendations. Patient status post extubation now on nasal canula. (2) Leukocytosis ICD Code: D72.829 Status: Resolved Plan: Likely stress related, now resolved. Continue to monitor CBC. No signs of infection. WBC 11.4 (3) Hyperlipidemia ICD Code: E78.5 Status: Chronic Plan: Continue statin. Lipid profile showed triglycerides of 288, cholesterol 240, LDL cholesterol 134, HDL cholesterol 48.1. TSH 1.6 (4) CAD (coronary artery disease) ICD Code: I25.10 Status: Acute Plan: Patient known to have a chronically occluded RCA. Continue medical management with aspirin, statin, beta tracy and DONNY inhibitor. (5) Ischemic cardiomyopathy ICD Code: I25.5 Status: Acute Plan: As above. Continue statin, beta tracy, donny inhibitor (6) S/P CABG x 3 ICD Code: Z95.1 Status: Acute Plan: Management as per Ct surgery. (7) Visual disturbance ICD Code: H53.9 Status: Acute Plan: - Left eye conjunctiva is injected. This could be secondary to corneal abrasion. Patient started on erythromycin. If persistent will consult ophthalmology. Discharge Planning Continue to monitor in [facility] Problem Qualifiers (1) STEMI (ST elevation myocardial infarction): Qualified Code: I21.11 - ST elevation myocardial infarction involving right coronary artery (2) CAD (coronary artery disease): Qualified Code: I25.110 - Coronary artery disease involving [place] coronary artery of [place] heart with unstable angina pectoris Casey Wright MD Aug 23, 2016 11:32 Casey Wright MD Aug 23, 2016 11:32
[2016-08-23] MEDS: ERYTHROMYCIN 0.5% OPTH OINT 3.5 GM TUBO LEFT EYE SCH ×3 (11:48→23:46)
--- NOTE | 2016-08-23 14:12 | EKG ---
Date Performed: 08/23/2016 Time Performed: 05:12:26 PTAGE: 61 years EKG: Sinus rhythm IV conduction defect Inferior infarct - age undetermined Anteroseptal infarct - age undetermined Lat eral T wave changes are nonspecific Since previous tracing, no significant change noted Abnormal ECG PREVIOUS TRACING : 08/19/2016 05.37 DOCTOR: Armin Burton Interpretating Date/Time 08/23/2016 14:02:31
[2016-08-23] MEDS: ATORVASTATIN 40 MG TAB PO SCH (21:33)
[2016-08-24] VITALS (28 sets, daily range): BP systolic 104–128; BP diastolic 60–73; PULSE 59–131; RESP 18–20; TEMP 98–98.7; O2SAT 92–96
[2016-08-24] MEDS: KETOROLAC TROMETHAMINE 30 MG/ML (IVP) VIAL IV PUSH PRN (00:02)
[2016-08-24] MEDS: INSULIN ASPART SUPPLEMENTAL SCALE SQ SCH ×6 (02:00→21:00)
[2016-08-24] MEDS: oxyCODONE/ACETAMINOPHEN 5 MG/325 MG TAB PO PRN ×4 (04:24→21:56)
[2016-08-24 04:35] LABS: BASOPHIL # 0.1 TH/MM3 (0-0.2); BASOPHIL % 1.1 % (0.0-2.0); EOSINOPHIL # 0.2 TH/MM3 (0-0.4); HEMATOCRIT 31.8 % (39.0-51.0); HEMO FLAGS DIFF FINAL; LYMPH % 13.4 % (9.0-44.0); LYMPHOCYTE # 1.5 TH/MM3 (1.0-4.8); MEAN CELL VOLUME 95.7 FL (80.0-100.0); MEAN CORPUSCULAR HEMOGLOBIN 32.6 PG (27.0-34.0); MEAN CORPUSCULAR HGB CONC 34.1 % (32.0-36.0); MONO % 12.2 % (0.0-8.0); NEUT % 71.3 % (16.0-70.0); PLATELET COUNT 153 TH/MM3 (150-450); RED BLOOD COUNT 3.32 MIL/MM3 (4.50-5.90); WHITE BLOOD COUNT 11.3 TH/MM3 (4.0-11.0)
[2016-08-24 05:03] LABS: ALKALINE PHOSPHATASE 48 U/L (45-117); ALT (GPT) 23 U/L (12-78); ANION GAP 7 MEQ/L (5-15); AST (GOT) 13 U/L (15-37); BICARBONATE 25.9 MEQ/L (21.0-32.0); BLOOD UREA NITROGEN 13 MG/DL (7-18); CHLORIDE 106 MEQ/L (98-107); GLOMERULAR FILTRATION RATE 81 ML/MIN (>89); MAGNESIUM 2.3 MG/DL (1.5-2.5); POTASSIUM 3.8 MEQ/L (3.5-5.1); SODIUM (NA) 139 MEQ/L (136-145); TOTAL BILIRUBIN ADULT 0.7 MG/DL (0.2-1.0)
[2016-08-24] MEDS: PANTOPRAZOLE SOD 40 MG DELAYED RELEASE TAB PO SCH (05:44)
[2016-08-24] MEDS: ERYTHROMYCIN 0.5% OPTH OINT 3.5 GM TUBO LEFT EYE SCH ×3 (05:56→18:00)
[2016-08-24] MEDS: MULTIVITAMINS/MINERALS THERAPEUTIC TAB PO SCH (07:46)
[2016-08-24] MEDS: POLYETHYLENE GLYCOL 17 GM PKG PO SCH (07:46)
[2016-08-24] MEDS: ASPIRIN 81 MG CHEW TAB PO SCH (07:46)
[2016-08-24] MEDS: AMIODARONE 200 MG TAB PO SCH ×2 (07:47→19:56)
[2016-08-24] MEDS: DOCUSATE SODIUM 100 MG CAP PO SCH ×2 (07:47→21:50)
[2016-08-24] MEDS: CLOPIDOGREL 75 MG TAB PO SCH (07:47)
[2016-08-24] MEDS: MAGNESIUM HYDROXIDE SUSP 30 ML CUP PO PRN (07:47)
[2016-08-24] MEDS: METOPROLOL TARTRATE 25 MG TAB PO SCH (07:47)
[2016-08-24] MEDS: SODIUM CHLORIDE 0.9% FLUSH 5 ML FLUSH IV FLUSH SCH ×2 (07:50→21:50)
[2016-08-24] MEDS: RESP: ALBUTEROL 2.5 MG/IPRATROPIUM 0.5 MG NEB (SCH) NEB ×2 (09:16→12:36)
--- NOTE | 2016-08-24 12:57 | HHI.PR ---
Subjective Remarks fu CAD, sp CABG, visual disturbance. Patient still c/o of visual disturbances on left eye denies cp/sob denies fevers/chills denies cough chest tubes discontinued Objective Vitals Vital Signs Date Time Temp Pulse Resp B/P Pulse Ox O2 Delivery O2 Flow Rate FiO2 08/24/16 11:00 60 08/24/16 11:00 98.5 60 19 128/71 93 08/24/16 10:00 62 08/24/16 09:16 94 21 08/24/16 09:00 64 08/24/16 08:00 62 08/24/16 07:39 66 18 114/72 96 08/24/16 07:30 96 Nasal Cannula 1.50 08/24/16 07:00 60 08/24/16 06:00 60 08/24/16 05:00 65 08/24/16 04:00 98.6 70 18 119/73 92 08/24/16 04:00 69 08/24/16 03:00 71 08/24/16 02:18 92 Nasal Cannula 2.00 08/24/16 02:00 66 08/24/16 01:00 79 08/24/16 00:00 98.7 70 18 105/69 93 08/24/16 00:00 70 08/23/16 23:00 70 08/23/16 22:00 76 08/23/16 21:00 83 08/23/16 20:00 97.3 75 16 104/73 100 08/23/16 20:00 85 08/23/16 20:00 100 Nasal Cannula 2.00 08/23/16 19:00 84 08/23/16 18:00 93 08/23/16 17:00 75 08/23/16 16:00 85 08/23/16 15:00 97.8 70 18 103/57 98 08/23/16 15:00 70 I/O 08/23/16 08/23/16 08/23/16 08/24/16 08/24/16 08/24/16 07:00 15:00 23:00 07:00 15:00 23:00 Intake Total 2004 ml 480 ml 720 ml Output Total 770 ml 1125 ml 920 ml Balance 1234 ml -645 ml -200 ml Intake Oral 480 ml 480 ml 720 ml TPN/PPN 1524 ml Output Urine Total 500 ml 950 ml 850 ml Chest Tube Drainage Total 270 ml 175 ml 70 ml # Bowel Movements 0 0 0 Result Diagram: 08/24/165 08/24/16 0405 Imaging Last Impressions Chest X-Ray 08/23/16 0500 Signed Impressions: Service Date/Time: Tuesday, August 23, 2016 05:33 - CONCLUSION: Stable chest , status post CABG. Zack Shields MD Lower Extremity Ultrasound 08/19/16 0000 Signed Impressions: Service Date/Time: Friday, August 19, 2016 09:12 - CONCLUSION: Patent saphenous veins throughout bilaterally Low Lockhart MD Chest CT 08/19/16 0000 Signed Impressions: Service Date/Time: Friday, August 19, 2016 14:31 - CONCLUSION: Ascending aorta mildly dilated to about 4.2 cm. Moderate coronary calcifications. Tortuous aorta. Haroldo Fields MD Carotid Artery Ultrasound 08/19/16 0000 Signed Impressions: Service Date/Time: Friday, August 19, 2016 08:52 - CONCLUSION: Normal examination for a patient of this age. Haroldo Fields MD Objective Remarks GENERAL: This is a well-nourished, well-developed patient, in no apparent distress. SKIN: No rashes, ecchymoses or lesions. Cool and dry. HEAD: Atraumatic. Normocephalic. No temporal or scalp tenderness. EYES: Pupils equal round and reactive. Extraocular motions intact. No scleral icterus. Left eye is injected but improved from previous day. No purulent discharge seen. ENT: Nose without bleeding, purulent drainage or septal hematoma. Throat without erythema, tonsillar hypertrophy or exudate. Uvula midline. Airway patent. NECK: Trachea midline. No JVD or lymphadenopathy. Supple, nontender, no meningeal signs. CARDIOVASCULAR: Regular rate and rhythm without murmurs, gallops, or rubs. chest tube in place. dressing on chest id C/D/I. RESPIRATORY: Clear to auscultation. Breath sounds equal bilaterally. No wheezes , rales, or rhonchi. GASTROINTESTINAL: Abdomen soft, non-tender, nondistended. No hepato-splenomegaly , or palpable masses. No guarding. MUSCULOSKELETAL: Extremities without clubbing, cyanosis, or edema. No joint tenderness, effusion, or edema noted. No calf tenderness. Negative Homans sign bilaterally. NEUROLOGICAL: Awake and alert. Cranial nerves II through XII intact. Motor and sensory grossly within normal limits. Five out of 5 muscle strength in all muscle groups. Normal speech. Procedures 08/22/2016 Urgent Off-pump Coronary Artery Bypass Grafting x 3 with left internal mammary artery (JENKINS) to left anterior descending (LAD), reverse saphenous vein graft to D1, reverse saphenous vein graft to the distal RCA, Right Leg Endoscopic Vein [place] Medications and IVs Current Medications Medications (Trade) Dose Ordered Sig/[place] Route Start Time Stop Time Status Last Admin (Reglan Inj) 10 mg Q4H PRN IV 08/18/16 16:15 (Lopressor) 12.5 mg BID PO 08/18/16 21:00 08/24/16 07:47 (Lipitor) 40 mg HS PO 08/18/16 21:00 08/23/16 21:33 (Pill Splitter) 1 ea UNSCH PRN OTHER 08/18/16 16:30 (NS Flush) 2 ml BID IV FLUSH 08/22/16 21:00 08/24/16 07:50 (NS Flush) 2 ml UNSCH PRN IV FLUSH 08/22/16 12:00 08/24/16 00:03 (Aspirin Chew) 81 mg DAILY PO 08/23/16 09:00 08/24/16 07:46 (Plavix) 75 mg DAILY PO 08/23/16 09:00 08/24/16 07:47 (Protonix) 40 mg DAILY@06 PO 08/23/16 06:00 08/24/16 05:44 (Cordarone) 200 mg Q12HR PO 08/22/16 21:00 08/24/16 07:47 (Tylenol) 650 mg Q4H PRN PO 08/22/16 12:00 (Percocet 5-325 Mg) 1 tab Q3H PRN PO 08/22/16 12:00 08/24/16 11:16 (Percocet 5-325 Mg) 2 tab Q3H PRN PO 08/22/16 12:00 08/24/16 04:24 Ondansetron HCl 4 mg 4 mg Q6H PRN IV PUSH 08/22/16 12:00 Magnesium Sulfate 2 gm/Sodium Chloride 104 ml @ 100 mls/hr UNSCH PRN IV 08/22/16 12:00 (Magnesium Sulfate Inj/NS Inj) 104 ml @ 50 mls/hr UNSCH PRN IV 08/22/16 12:00 08/23/16 06:42 (D50w (Vial) Inj) 25 ml UNSCH PRN IV PUSH 08/22/16 12:00 (Colace) 100 mg BID PO 08/24/16 09:00 08/24/16 07:47 (Theragran M Tab) 1 tab DAILY PO 08/23/16 09:00 08/24/16 07:46 (Milk Of Magnesia Liq) 30 ml DAILY PRN PO 08/23/16 08:30 08/24/16 07:47 (Dulcolax Ec) 5 mg UNSCH PRN PO 08/23/16 08:30 (Miralax) 17 gm DAILY PO 08/24/16 09:00 08/24/16 07:46 (Fleets Enema (Adult)) 133 ml UNSCH PRN RECTAL 08/23/16 08:30 (NovoLOG SUPPLEMENTAL SCALE) 1 02,06,10,14,18,22 SQ 08/23/16 10:00 08/23/16 21:33 (D50w (Vial) Inj) 25 ml UNSCH PRN IV 08/23/16 08:30 (Glucagon Inj) 1 mg UNSCH PRN OTHER 08/23/16 08:30 (Ilotycin 0.5% Opth Oint) 1 applic Q6HR LEFT EYE 08/23/16 12:00 08/23/16 18:42 A/P Problem List: (1) STEMI (ST elevation myocardial infarction) ICD Code: I21.3 Status: Resolved Plan: This is a 61-year-old male with history of hypertension, dyslipidemia and coronary artery disease with chronically occlude RCA presenting with chest pain found to have multivessel are artery disease Chest pain, STEMI -status post cardiac catheterization 08/18/16 revealed chronically occlude LAD and RCA mode multivessel disease, cardiothoracic surgery consulted for CABG, likely Monday. Continue medical management, continue aspirin, lisinopril, metoprolol, statin, LDL is 134, troponin maxed at 0.06. Lisinopril dose decreased to give room for metoprolol, hydrochlorothiazide also on hold. Adjust as needed. Patient is sp Urgent Off-pump Coronary Artery Bypass Grafting x 3 with left internal mammary artery (JENKINS) to left anterior descending (LAD), reverse saphenous vein graft to D1, reverse saphenous vein graft to the distal RCA, Right Leg Endoscopic Vein Terer[place] performed on 08/22. 08/24/[address] Chest tubes discontinued. Fu CT surgery recommendations. (2) Leukocytosis ICD Code: D72.829 Status: Resolved Plan: Likely stress related, now resolved. Continue to monitor CBC. No signs of infection. WBC 11.4 (3) Hyperlipidemia ICD Code: E78.5 Status: Chronic Plan: Continue statin. Lipid profile showed triglycerides of 288, cholesterol 240, LDL cholesterol 134, HDL cholesterol 48.1. TSH 1.6 (4) CAD (coronary artery disease) ICD Code: I25.10 Status: Acute Plan: Patient known to have a chronically occluded RCA. Continue medical management with aspirin, statin, beta tracy and DONNY inhibitor. (5) Ischemic cardiomyopathy ICD Code: I25.5 Status: Acute Plan: As above. Continue statin, beta tracy, donny inhibitor (6) S/P CABG x 3 ICD Code: Z95.1 Status: Acute Plan: Management as per Ct surgery. (7) Visual disturbance ICD Code: H53.9 Status: Acute Plan: - Left eye conjunctiva is injected. This could be secondary to corneal abrasion. Patient started on erythromycin. 08/24/16 Left eye redness slightly improved. Patient still c/o left eye visual disturbance described as pringle and blue colored blue spots. Will consult ophtalmology fo r further assesment. Patient denies eye pain and elicits a history of macular degeneration. Assessment and Plan GI prophylaxis: PPI. DVT prophylaxis: SCD's, Rodolfo stockings. Discharge Planning Continue to monitor in [facility] Problem Qualifiers (1) STEMI (ST elevation myocardial infarction): Qualified Code: I21.11 - ST elevation myocardial infarction involving right coronary artery (2) CAD (coronary artery disease): Qualified Code: I25.110 - Coronary artery disease involving [place] coronary artery of [place] heart with unstable angina pectoris Casey Wright MD Aug 24, 2016 12:57
[2016-08-24] MEDS ORDERED: POTASSIUM CHLORIDE 20 MEQ CONTROLLED RELEASE TAB PO ONE (15:00)
--- NOTE | 2016-08-24 15:19 | PD.CAR.PN ---
CVT Progress Note CVT: POD #: 2 Subjective/Hospital Course: 61 / male admitted with chest pain, HX of CAD/[place]/ underwent Heart cath by Dr Sow, multivessel disease/ EF 25% by echo PMH: psoriasis, HTN, HLP 08/21/16 Denies chest pain Questions regarding CABG addressed 08/22 surgery Urgent Off-pump Coronary Artery Bypass Grafting x 3 with left internal mammary artery (JENKINS) to left anterior descending (LAD), reverse saphenous vein graft to D1, reverse saphenous vein graft to the distal RCA, Right Leg Endoscopic Vein [place] 08/23 extubated post surgery had air leak in one of chest tubes yesterday chest tubes to individual pleuravac, no further air leak noted on nasal cannula c/o left eye feeling scratchy/ some corneal injection noted stable for transfer to stepdown 08/24 chest tubes removed without difficulty on room air gentle diuresis add low dose anson pt will need Life vest at discharge/ discussed with Dr Sow still has some left eye visual disturbance/ ophthalmology consulted . Objective: GENERAL: SKIN: Warm and dry./ incision intact and well approximated to chest HEAD: Normocephalic. EYES: No scleral icterus. No injection or drainage. NECK: Supple, trachea midline. No JVD or lymphadenopathy. CARDIOVASCULAR: Regular rate and rhythm without murmurs, gallops, or rubs. RESPIRATORY: Breath sounds equal bilaterally. No accessory muscle use. chest tubes removed GASTROINTESTINAL: Abdomen soft, non-tender, nondistended. MUSCULOSKELETAL: No cyanosis, or edema. BACK: Nontender without obvious deformity. No CVA tenderness. Vital Signs Date Time Temp Pulse Resp B/P Pulse Ox O2 Delivery O2 Flow Rate FiO2 08/24/16 14:00 69 08/24/16 13:00 79 08/24/16 12:00 59 08/24/16 11:00 60 08/24/16 11:00 98.5 60 19 128/71 93 08/24/16 10:00 62 08/24/16 09:16 94 21 08/24/16 09:00 64 08/24/16 08:00 62 08/24/16 07:39 66 18 114/72 96 08/24/16 07:30 96 Nasal Cannula 1.50 08/24/16 07:00 60 08/24/16 06:00 60 08/24/16 05:00 65 08/24/16 04:00 98.6 70 18 119/73 92 08/24/16 04:00 69 08/24/16 03:00 71 08/24/16 02:18 92 Nasal Cannula 2.00 08/24/16 02:00 66 08/24/16 01:00 79 08/24/16 00:00 98.7 70 18 105/69 93 08/24/16 00:00 70 08/23/16 23:00 70 08/23/16 22:00 76 08/23/16 21:00 83 08/23/16 20:00 97.3 75 16 104/73 100 08/23/16 20:00 85 08/23/16 20:00 100 Nasal Cannula 2.00 08/23/16 19:00 84 08/23/16 18:00 93 08/23/16 17:00 75 08/23/16 16:00 85 Labs: Laboratory Tests Test 08/24/16 04:05 White Blood Count 11.3 TH/MM3 (4.0-11.0) Red Blood Count 3.32 MIL/MM3 (4.50-5.90) Hemoglobin 10.8 GM/DL (13.0-17.0) Hematocrit 31.8 % (39.0-51.0) Mean Corpuscular Volume 95.7 FL (80.0-100.0) Mean Corpuscular Hemoglobin 32.6 PG (27.0-34.0) Mean Corpuscular Hemoglobin 34.1 % Concent (32.0-36.0) Red Cell Distribution Width 13.0 % (11.6-17.2) Platelet Count 153 TH/MM3 (150-450) Mean Platelet Volume 8.9 FL (7.0-11.0) Neutrophils (%) (Auto) 71.3 % (16.0-70.0) Lymphocytes (%) (Auto) 13.4 % (9.0-44.0) Monocytes (%) (Auto) 12.2 % (0.0-8.0) Eosinophils (%) (Auto) 2.0 % (0.0-4.0) Basophils (%) (Auto) 1.1 % (0.0-2.0) Neutrophils # (Auto) 8.0 TH/MM3 (1.8-7.7) Lymphocytes # (Auto) 1.5 TH/MM3 (1.0-4.8) Monocytes # (Auto) 1.4 TH/MM3 (0-0.9) Eosinophils # (Auto) 0.2 TH/MM3 (0-0.4) Basophils # (Auto) 0.1 TH/MM3 (0-0.2) CBC Comment DIFF FINAL Differential Comment Sodium Level 139 MEQ/L (136-145) Potassium Level 3.8 MEQ/L (3.5-5.1) Chloride Level 106 MEQ/L (98-107) Carbon Dioxide Level 25.9 MEQ/L (21.0-32.0) Anion Gap 7 MEQ/L (5-15) Blood Urea Nitrogen 13 MG/DL (7-18) Creatinine 0.94 MG/DL (0.60-1.30) Estimat Glomerular Filtration 81 ML/MIN (>89) Rate Random Glucose 88 MG/DL (74-106) Calcium Level 8.1 MG/DL (8.5-10.1) Magnesium Level 2.3 MG/DL (1.5-2.5) Total Bilirubin 0.7 MG/DL (0.2-1.0) Aspartate Amino Transf 13 U/L (15-37) (AST/SGOT) Alanine Aminotransferase 23 U/L (12-78) (ALT/SGPT) Alkaline Phosphatase 48 U/L (45-117) Total Protein 5.6 GM/DL (6.4-8.2) Albumin 2.9 GM/DL (3.4-5.0) Result Diagram: 08/24/16 0405 08/24/16 0405 Telemetry: NSR (1) CAD (coronary artery disease) (2) S/P CABG x 3 Plan: ASA, statin, plavix, BB gentle diuresis add low dose anson in am aggressive pulm toileting OOB/ PT (3) STEMI (ST elevation myocardial infarction) (4) Ischemic cardiomyopathy Plan: will need life vest / anson / discussed with Dr Sow (5) Hyperlipidemia Plan: on statin (6) Visual disturbance Plan: left conjunctiva less injected, ophthalmology consulted Problem Qualifiers (1) CAD (coronary artery disease): Qualified Code: I25.110 - Coronary artery disease involving [place] coronary artery of [place] heart with unstable angina pectoris (2) STEMI (ST elevation myocardial infarction): Qualified Code: I21.11 - ST elevation myocardial infarction involving right coronary artery Shelia Vasquez Aug 24, 2016 15:19
[2016-08-24] MEDS: FUROSEMIDE 40 MG TAB PO SCH (16:39)
[2016-08-24] MEDS: POTASSIUM CHLORIDE 20 MEQ CONTROLLED RELEASE TAB PO SCH (16:39)
[2016-08-24] MEDS ORDERED: METOPROLOL TARTRATE 25 MG TAB PO ONE (18:45)
[2016-08-24] MEDS: ATORVASTATIN 40 MG TAB PO SCH (21:50)
--- NOTE | 2016-08-24 23:53 | MB ---
cc: Anthony WHITE M.D., ROLANDO MD DATE OF CONSULTATION: 08/24/2016 REASON FOR CONSULTATION: Postop pulmonary management, status post coronary artery bypass. HISTORY OF PRESENT ILLNESS: The patient is a 61 year-old white male with a history of coronary artery disease and history for occluded right coronary artery, was admitted with chest pain and ST-segment elevation. The patient apparently had a cardiac catheterization done which showed occluded left anterior descending and right mid coronary artery with collateralization and severe proximal LAD stenosis. The patient went for bypass surgery which was done this week. Postoperatively the patient was in the post cardiac unit and has been using incentive spirometer and his chest x-ray showed mild atelectasis postop. He is also on oxygen 2 liters and has been maintaining his saturation of over 95%. He denies any wheezing but has a cough and brings up little whitish yellow mucous. Denies night sweats, fevers or chills. PAST HISTORY History of coronary artery disease as mentioned above, history of hypertension and hyperlipidemia, previous history of angina. ALLERGIES None listed. HABITS The patient smoked one-pack per day for 15 years and then quit. No significant alcohol use. FAMILY HISTORY Noncontributory. MEDICATIONS: 1. Lisinopril HCT 20/25 mg daily. 2. Simvastatin 40 mg at bedtime REVIEW OF SYSTEMS The patient is overweight. There is no headaches, blackouts. He has some snoring but no apnea. He has reflux. No nausea or vomiting. No urinary symptoms. No leg or calf muscle pains. He has no joint pains, headaches or blackouts. The remainder of the review of systems is negative. PHYSICAL EXAMINATION This is a middle-aged white male who is averagely built, no acute distress. VITAL SIGNS: Blood pressure 130/70, pulse is 60, respiratory rate 16, temperature 97.5. HEENT: Head normocephalic. Pupils reactive. Tongue is moist. Nasal mucosa injected. He has no inflammation. Neck: Supple. No bruits or thyroid enlargement, no lymphadenopathy. Chest: Equal movements with scattered wheezes throughout both lung santiago. Prolonged expirations. Heart: The heart sounds are regular. S1-S2 are normal. No S3. Abdomen: Soft, benign. No masses, no organomegaly or tenderness. Extremities: No edema, clubbing or cyanosis. Reflexes are 1+, with no gross motor deficits. Neurologic: Cranial nerves II-XII grossly intact. Rectal: Deferred. IMPRESSION: 1. Status post CABG with postop respiratory insufficiency. 2. Hypertension. 3. Basilar atelectasis PLAN The patient has been advised to use the incentive spirometer every 2 hours, nebulized DuoNeb solution three times daily and p.r.n., oxygen 2 liters p.r.n. Follow up chest x-ray to be done in the a.m. patient's O2 will probably be weaned off. His pulmonary functions preoperatively were normal. He may not need to use the bronchodilators once his atelectasis has resolved. Thank you, Dr. Dozier, for this consultation. MD NATASHA Gutierrez/JUANITA /11:32 PM /11:44 PM
[2016-08-25] VITALS (27 sets, daily range): BP systolic 104–125; BP diastolic 69–82; PULSE 59–121; RESP 18–20; TEMP 97.5–98; O2SAT 93–96
[2016-08-25] MEDS: oxyCODONE/ACETAMINOPHEN 5 MG/325 MG TAB PO PRN ×7 (01:51→22:06)
--- NOTE | 2016-08-25 04:56 | RADRPT ---
EXAM DATE/TIME: 08/25/2016 03:39 [place] COMPARISON: No previous studies available for comparison. INDICATIONS : Shortness of breath, possible pulmonary disease. MEDICAL HISTORY : Hypertension. SURGICAL HISTORY : CABG. ENCOUNTER: Subsequent ACUITY: 1 week PAIN SCORE: Non-responsive. LOCATION: Bilateral chest FINDINGS: A single view of the chest demonstrates cardiomegaly and previous median sternotomy. Minimal retrocar diac density. Left subclavian central line in stable position. No pneumothorax. Chest tubes have been removed. The cardiomediastinal contours are unremarkable. Osseous structures are intact. CONCLUSION: 1. Cardiomegaly and venous CABG. 2. Minimal retrocardiac density likely atelectasis. 3. Removal of chest tubes without pneumothorax. Zack Shields MD on August 25, 2016 at 4:54 Board Certified Radiologist. This report was verified electronically.
[2016-08-25] MEDS: PANTOPRAZOLE SOD 40 MG DELAYED RELEASE TAB PO SCH (05:51)
[2016-08-25] MEDS: ERYTHROMYCIN 0.5% OPTH OINT 3.5 GM TUBO LEFT EYE SCH ×4 (05:53→17:27)
[2016-08-25] MEDS: INSULIN ASPART SUPPLEMENTAL SCALE SQ SCH ×4 (06:10→21:00)
[2016-08-25] MEDS: RESP: ALBUTEROL 2.5 MG/IPRATROPIUM 0.5 MG NEB (SCH) NEB (07:27)
[2016-08-25] MEDS: POLYETHYLENE GLYCOL 17 GM PKG PO SCH (08:42)
[2016-08-25] MEDS: MULTIVITAMINS/MINERALS THERAPEUTIC TAB PO SCH (08:44)
[2016-08-25] MEDS: AMIODARONE 200 MG TAB PO SCH ×3 (08:44→21:08)
[2016-08-25] MEDS: CLOPIDOGREL 75 MG TAB PO SCH (08:44)
[2016-08-25] MEDS: ASPIRIN 81 MG CHEW TAB PO SCH (08:44)
[2016-08-25] MEDS: RAMIPRIL 2.5 MG CAP PO SCH (08:44)
[2016-08-25] MEDS: FUROSEMIDE 40 MG TAB PO SCH (08:45)
[2016-08-25] MEDS: DOCUSATE SODIUM 100 MG CAP PO SCH ×2 (08:45→21:08)
[2016-08-25] MEDS: METOPROLOL TARTRATE 25 MG TAB PO SCH ×2 (08:45→21:09)
[2016-08-25] MEDS: POTASSIUM CHLORIDE 20 MEQ CONTROLLED RELEASE TAB PO SCH (08:45)
[2016-08-25] MEDS: SODIUM CHLORIDE 0.9% FLUSH 5 ML FLUSH IV FLUSH SCH ×2 (08:47→21:09)
[2016-08-25] MEDS ORDERED: AMIODARONE INJ 150 MG in DEXTROSE 5% IN WATER 100ML INJ 97 ML IV ONE ×2 (11:00)
--- NOTE | 2016-08-25 11:38 | PD.CAR.PN ---
CVT Progress Note Subjective/Hospital Course: 61 / male admitted with chest pain, HX of CAD/[place]/ underwent Heart cath by Dr Sow, multivessel disease/ EF 25% by echo PMH: psoriasis, HTN, HLP 08/21/16 Denies chest pain Questions regarding CABG addressed 08/22 surgery Urgent Off-pump Coronary Artery Bypass Grafting x 3 with left internal mammary artery (JENKINS) to left anterior descending (LAD), reverse saphenous vein graft to D1, reverse saphenous vein graft to the distal RCA, Right Leg Endoscopic Vein [place] 08/23 extubated post surgery had air leak in one of chest tubes yesterday chest tubes to individual pleuravac, no further air leak noted on nasal cannula c/o left eye feeling scratchy/ some corneal injection noted stable for transfer to stepdown 08/24 chest tubes removed without difficulty on room air gentle diuresis add low dose anson pt will need Life vest at discharge/ discussed with Dr Sow still has some left eye visual disturbance/ ophthalmology consulted 08/25 pt went into afib rvr last pm on BB, received amiodarone bolus/ now to start on amiodarone gtt will start lovenox/ consider xarelto in am . Objective: GENERAL: SKIN: Warm and dry./ dressing in place to chest HEAD: Normocephalic. EYES: No scleral icterus. No injection or drainage. NECK: Supple, trachea midline. No JVD or lymphadenopathy. CARDIOVASCULAR: irregular rate and rhythm without murmurs, gallops, or rubs. RESPIRATORY: diminished in bases Breath sounds equal bilaterally. No accessory muscle use. GASTROINTESTINAL: Abdomen soft, non-tender, nondistended. MUSCULOSKELETAL: No cyanosis, or edema. BACK: Nontender without obvious deformity. No CVA tenderness. Vital Signs Date Time Temp Pulse Resp B/P Pulse Ox O2 Delivery O2 Flow Rate FiO2 08/25/16 07:28 95 21 08/25/16 07:00 91 08/25/16 06:09 98 08/25/16 05:00 98 08/25/16 04:30 98.0 94 20 117/82 95 08/25/16 04:05 92 08/25/16 03:00 99 08/25/16 02:00 117 08/25/16 01:00 98 08/25/16 00:00 104 08/25/16 00:00 98.0 102 20 109/77 95 08/24/16 23:00 106 08/24/16 22:00 97 08/24/16 21:00 98 08/24/16 20:00 112 08/24/16 20:00 95 Room Air 08/24/16 20:00 98.0 117 20 104/60 95 08/24/16 19:00 131 08/24/16 18:00 117 08/24/16 17:40 120 08/24/16 17:00 68 08/24/16 16:00 72 08/24/16 15:00 60 08/24/16 15:00 98.3 75 18 110/64 92 08/24/16 14:00 69 08/24/16 13:00 79 08/24/16 12:00 59 Result Diagram: 08/24/1640408/24/16404 Telemetry: afib (1) CAD (coronary artery disease) (2) S/P CABG x 3 Plan: ASA, statin, plavix, BB gentle diuresis add low dose anson in am aggressive pulm toileting OOB/ PT (3) STEMI (ST elevation myocardial infarction) (4) Ischemic cardiomyopathy Plan: will need life vest / anson / discussed with Dr Sow (5) Hyperlipidemia Plan: on statin (6) Visual disturbance Plan: left conjunctiva less injected, ophthalmology consulted (7) Afib Plan: on BB amiodarone, lovenox Problem Qualifiers (1) CAD (coronary artery disease): Qualified Code: I25.110 - Coronary artery disease involving [place] coronary artery of [place] heart with unstable angina pectoris (2) STEMI (ST elevation myocardial infarction): Qualified Code: I21.11 - ST elevation myocardial infarction involving right coronary artery Shelia Vasquez Aug 25, 2016 11:38
[2016-08-25] MEDS ORDERED: AMIODARONE INJ 450 MG in DEXTROSE 5% IN WATE(EXCEL) INJ 241 ML IV SCH ×2 (11:45)
[2016-08-25] MEDS: ENOXAPARIN SODIUM 40 MG/0.4 ML SYRINGE SQ SCH (12:23)
--- NOTE | 2016-08-25 13:18 | HHI.FF ---
Face to Face Verification Diagnosis: (1) CAD (coronary artery disease) (2) Hyperlipidemia (3) STEMI (ST elevation myocardial infarction) (4) Ischemic cardiomyopathy (5) S/P CABG x 3 Home Health Nursing Order: Signs/symptoms of disease process CHF education (life vest ) Wound care and dressing changes Instructions: Heart and Vascular Surgery patients *Special attention to sternal dressing Mandatory frequency Assess and evaluation, 4 days in a row The next week 3X week 2 times a week for 4 weeks 1 time a week for 5 weeks Schedule Heart and Vascular patients for full 60 day certification period Initial visit Review Open Heart Surgery Discharge Instructions (Sternal precautions, Activity, Elastic hose, Incision care, Driving, Incentive spirometry, Smoking, [place], Work and other) Need Betadine to paint incision Medication reconciliation Importance of follow up care/ check on appointments Make calendar record temperature daily When to call [facility] nurse, review instructions, phone list Incentive Spirometry, demonstration Visit 1- Begin discharge instruction for patient family and/ or caregiver using teach back method- Signs and symptoms of infection Disease characteristics Medicines and side effects Foods and nutrition/ appetite Infection control/ hand washing/ hygiene Visit 2- Continue teaching Discharge instructions- include additional information on smoking cessation , sternal dressing (sternal vac) Visit 3- Continue teaching- Cough and deep breathing, incision monitoring. Choose my plate Visit 4- Continue teaching- Discuss limitations Discuss how they are feeling Discuss progress toward goals Remaining visits- continue teaching and monitoring Incentive spirometry Q1 hr x 10, while awake, also use acapella device hourly whole awake Sternal Breast Bone Precautions: NO pushing or pulling, ( pt must use sternal pillow to support chest with all activities and with coughing ( takes up to 3 months breast bone to heal ) Daily incision care: ok to shower daily, no tub bath. Wash all incisions with liquid dial soap, clean wash cloth to each site, rinse and pat dry. Observe for any signs of infection, such as drainage which is dark yellow, pringle, green or foul smelling. Immediately report to the surgeon any drainage from the chest incision, or legs, and for any abnormal drainage from the chest tube sites. Notify surgeon if any temp >101.5 degrees F. When specialty dressing removed/ or if you do not have one, continue to shower daily as above, then rinse and pat incision dry and paint with betadine daily x 5 days. Allow steri strips to fall off if you have any. Avoid lotions, creams, salves, oils, etc. for the first month F/U appointment: as per [place] instructions: PCP in 2 weeks, CV surgeon 4 weeks, Electromyographic Technician 3-4 weeks For any questions regarding incisions/ dressing / meds / post op care or above Symptoms, Monday 8am-5pm Heart & Vascular Surgery Office ( Dr. Esquivel & Dr. Ramsey), After Hours / Nights (5pm -8am) Weekends and Holidays Please call [facility] ([facility]) Charge Nurse I have seen patient Abebe Adam on 08/25/16. My clinical findings support the need for the requested home health care services because: Deconditioned w/ increased weakness I certify that my clinical findings support that this patient is homebound because: Impaired cognitive ability/safety (life vest education) Shelia Vasquez Aug 25, 2016 13:18
[2016-08-25 13:41] LABS: BICARBONATE 26.3 MEQ/L (21.0-32.0); MAGNESIUM 2.3 MG/DL (1.5-2.5); POTASSIUM 4.1 MEQ/L (3.5-5.1)
--- NOTE | 2016-08-25 17:16 | PD.CONS ---
History of Present Illness Service Ophthalmology Consult Requested By Reason for Consult left eye visual disturbance Primary Care Physician Unknown Diagnoses: History of Present Illness 61 yo male admitted with chest pain, underwent cath. Now 3 days s/p CABG. Started having visual disturbance in left eye 2 days ago. Describes it as streaks of blue and arevalo in his field of vision. No decrease in acuity. 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 Virgilio Cavazos. He has not seen an commissioning specialist in a few years. Past Family Social History Allergies: Coded Allergies: No Known Allergies (Verified , 04/21/03) Uncoded Allergies: NKA (Allergy, Unknown, 04/22/03) Physical Exam Vital Signs Vital Signs Date Time Temp Pulse Resp B/P Pulse Ox O2 Delivery O2 Flow Rate FiO2 08/25/16 15:50 97.5 75 19 107/72 94 08/25/16 11:00 97.9 75 19 125/74 94 08/25/16 07:30 97.6 120 18 104/76 93 08/25/16 07:28 95 21 08/25/16 07:00 94 Room Air 08/25/16 07:00 91 08/25/16 06:09 98 08/25/16 05:00 98 08/25/16 04:30 98.0 94 20 117/82 95 08/25/16 04:05 92 08/25/16 03:00 99 08/25/16 02:00 117 08/25/16 01:00 98 08/25/16 00:00 104 08/25/16 00:00 98.0 102 20 109/77 95 08/24/16 23:00 106 08/24/16 22:00 97 08/24/16 21:00 98 08/24/16 20:00 112 08/24/16 20:00 95 Room Air 08/24/16 20:00 98.0 117 20 104/60 95 08/24/16 19:00 131 08/24/16 18:00 117 08/24/16 17:40 120 Physical Exam Va cc at near OD 20/40, OS 20/25 EOM full OU, no diplopia CVF full OU Pupils 2-1 no APD OU IOP normal to palpation OU Anterior exam OD - normal eyelid, C/S W&Q, K clear, AC deep, pupil round, lens clear OS - normal eyelid, C/S W&Q, K clear, AC deep, pupil round, lens clear Dilated exam OD - ON s/p/f, ves normal, vit clear, retina flat OS - ON s/p/f, few cotton wool spots in macula, PVD, retina tear lasered superotemp Laboratory Laboratory Tests Test 08/25/16 13:03 Sodium Level 138 Potassium Level 4.1 Chloride Level 104 Carbon Dioxide Level 26.3 Anion Gap 8 Blood Urea Nitrogen 12 Creatinine 0.99 Estimat Glomerular Filtration 77 Rate Random Glucose 98 Calcium Level 8.7 Phosphorus Level 2.6 Magnesium Level 2.3 Result Diagram: 08/24/16 0405 08/25/16 1303 Assessment and Plan Problem List: (1) Cotton wool spots Status: Acute Plan: Can have many causes: embolic (carotid, cardiac), ischemic (HTN, acute blood loss). Treatment is directed toward underlying etiology. Cotton wool spots will usually resolve in 6-12 weeks. Recommend outpatient follow up with his Retina specialist, Dr. Cavazos. Allyssa Nunez MD Aug 25, 2016 17:16
--- NOTE | 2016-08-25 19:12 | HHI.PR ---
Subjective Remarks Deferred entry, patient seen earlier at 1550 hrs. Patient denies chest pain or shortness of breath. Patient states he has been ambulating. Denies fevers or chills Since states that he went into atrial fibrillation last night, however has converted to normal sinus rhythm. Patient denies chest pain/shortness of breath Objective Vitals Vital Signs Date Time Temp Pulse Resp B/P Pulse Ox O2 Delivery O2 Flow Rate FiO2 08/25/16 18:00 69 08/25/16 17:00 64 08/25/16 16:00 74 08/25/16 15:50 97.5 75 19 107/72 94 08/25/16 15:00 97.5 75 20 107/72 94 08/25/16 15:00 59 08/25/16 14:00 65 08/25/16 13:00 62 08/25/16 12:00 59 08/25/16 11:00 97.9 75 19 125/74 94 08/25/16 11:00 84 08/25/16 10:00 89 08/25/16 09:00 112 08/25/16 08:00 121 08/25/16 07:30 97.6 120 18 104/76 93 08/25/16 07:28 95 21 08/25/16 07:00 94 Room Air 08/25/16 07:00 91 08/25/16 06:09 98 08/25/16 05:00 98 08/25/16 04:30 98.0 94 20 117/82 95 08/25/16 04:05 92 08/25/16 03:00 99 08/25/16 02:00 117 08/25/16 01:00 98 08/25/16 00:00 104 08/25/16 00:00 98.0 102 20 109/77 95 08/24/16 23:00 106 08/24/16 22:00 97 08/24/16 21:00 98 08/24/16 20:00 112 08/24/16 20:00 95 Room Air 08/24/16 20:00 98.0 117 20 104/60 95 I/O 08/24/16 08/24/16 08/24/16 08/25/16 08/25/16 08/25/16 07:00 15:00 23:00 07:00 15:00 23:00 Intake Total 720 ml 620 ml 940 ml Output Total 920 ml 1250 ml 1275 ml Balance -200 ml -630 ml -335 ml Intake Oral 720 ml 620 ml 840 ml IV Total 100 ml Output Urine Total 850 ml 1250 ml 1275 ml Chest Tube Drainage Total 70 ml # Bowel Movements 0 0 Result Diagram: 08/24/16 0405 08/25/16 1303 Imaging Last Impressions Chest X-Ray 08/25/16 0600 Signed Impressions: Service Date/Time: August 03:39 - CONCLUSION: 1. Cardiomegaly and venous CABG. 2. Minimal retrocardiac density likely atelectasis. 3. Removal of chest tubes without pneumothorax. Zack Shields MD Lower Extremity Ultrasound 08/19/16 0000 Signed Impressions: Service Date/Time: Friday, August 19, 2016 09:12 - CONCLUSION: Patent saphenous veins throughout bilaterally Low Lockhart MD Chest CT 08/19/16 0000 Signed Impressions: Service Date/Time: Friday, August 19, 2016 14:31 - CONCLUSION: Ascending aorta mildly dilated to about 4.2 cm. Moderate coronary calcifications. Tortuous aorta. Haroldo Fields MD Carotid Artery Ultrasound 08/19/16 0000 Signed Impressions: Service Date/Time: Friday, August 19, 2016 08:52 - CONCLUSION: Normal examination for a patient of this age. Haroldo Fields MD Objective Remarks GENERAL: This is a well-nourished, well-developed patient, in no apparent distress. SKIN: No rashes, ecchymoses or lesions. Cool and dry. HEAD: Atraumatic. Normocephalic. No temporal or scalp tenderness. EYES: Pupils equal round and reactive. Extraocular motions intact. No scleral icterus. ENT: Nose without bleeding, purulent drainage or septal hematoma. Throat without erythema, tonsillar hypertrophy or exudate. Uvula midline. Airway patent. NECK: Trachea midline. No JVD or lymphadenopathy. Supple, nontender, no meningeal signs. CARDIOVASCULAR: Regular rate and rhythm without murmurs, gallops, or rubs. chest tube in place. dressing on chest id C/D/I. RESPIRATORY: Clear to auscultation. Breath sounds equal bilaterally. No wheezes , rales, or rhonchi. GASTROINTESTINAL: Abdomen soft, non-tender, nondistended. No hepato-splenomegaly , or palpable masses. No guarding. MUSCULOSKELETAL: Extremities without clubbing, cyanosis, or edema. No joint tenderness, effusion, or edema noted. No calf tenderness. Negative Homans sign bilaterally. NEUROLOGICAL: Awake and alert. Cranial nerves II through XII intact. Motor and sensory grossly within normal limits. Five out of 5 muscle strength in all muscle groups. Normal speech. Procedures 08/22/2016 Urgent Off-pump Coronary Artery Bypass Grafting x 3 with left internal mammary artery (JENKINS) to left anterior descending (LAD), reverse saphenous vein graft to D1, reverse saphenous vein graft to the distal RCA, Right Leg Endoscopic Vein [place] Medications and IVs Current Medications Medications (Trade) Dose Ordered Sig/[place] Route Start Time Stop Time Status Last Admin (Reglan Inj) 10 mg Q4H PRN IV 08/18/16 16:15 (Lipitor) 40 mg HS PO 08/18/16 21:00 08/24/16 21:50 (Pill Splitter) 1 ea UNSCH PRN OTHER 08/18/16 16:30 (NS Flush) 2 ml BID IV FLUSH 08/22/16 21:00 08/25/16 08:47 (NS Flush) 2 ml UNSCH PRN IV FLUSH 08/22/16 12:00 08/24/16 00:03 (Aspirin Chew) 81 mg DAILY PO 08/23/16 09:00 08/25/16 08:44 (Plavix) 75 mg DAILY PO 08/23/16 09:00 08/25/16 08:44 (Protonix) 40 mg DAILY@06 PO 08/23/16 06:00 08/25/16 05:51 (Tylenol) 650 mg Q4H PRN PO 08/22/16 12:00 (Percocet 5-325 Mg) 1 tab Q3H PRN PO 08/22/16 12:00 08/25/16 17:25 (Percocet 5-325 Mg) 2 tab Q3H PRN PO 08/22/16 12:00 08/25/16 01:51 Ondansetron HCl 4 mg 4 mg Q6H PRN IV PUSH 08/22/16 12:00 Magnesium Sulfate 2 gm/Sodium Chloride 104 ml @ 100 mls/hr UNSCH PRN IV 08/22/16 12:00 (Magnesium Sulfate Inj/NS Inj) 104 ml @ 50 mls/hr UNSCH PRN IV 08/22/16 12:00 08/23/16 06:42 (Colace) 100 mg BID PO 08/24/16 09:00 08/25/16 08:45 (Theragran M Tab) 1 tab DAILY PO 08/23/16 09:00 08/25/16 08:44 (Milk Of Magnesia Liq) 30 ml DAILY PRN PO 08/23/16 08:30 08/24/16 07:47 (Dulcolax Ec) 5 mg UNSCH PRN PO 08/23/16 08:30 (Miralax) 17 gm DAILY PO 08/24/16 09:00 08/25/16 08:42 (Fleets Enema (Adult)) 133 ml UNSCH PRN RECTAL 08/23/16 08:30 (D50w (Vial) Inj) 25 ml UNSCH PRN IV 08/23/16 08:30 (Glucagon Inj) 1 mg UNSCH PRN OTHER 08/23/16 08:30 (Ilotycin 0.5% Opth Oint) 1 applic Q6HR LEFT EYE 08/23/16 12:00 08/23/16 18:42 (NovoLOG SUPPLEMENTAL SCALE) 1 ACHS SQ 08/24/16 16:00 08/25/16 17:25 (Lasix) 40 mg DAILY PO 08/24/16 15:30 08/25/16 08:45 (KCl) 20 meq DAILY PO 08/24/16 15:30 08/25/16 08:45 (Altace) 2.5 mg DAILY PO 08/25/16 09:00 08/25/16 08:44 (Lopressor) 25 mg BID PO 08/25/16 09:00 08/25/16 08:45 Enoxaparin Sodium 40 mg 40 mg Q12H SQ 08/25/16 12:00 08/25/16 12:23 (Cordarone Inj/ D5W ([place]) Inj) 250 ml @ 0 mls/hr CONTINUOUS IV 08/25/16 11:45 (Cordarone) 400 mg Q12HR PO 08/25/16 14:00 08/25/16 14:28 Urinary Catheter: No Vascular Central Line Catheter: No A/P Problem List: (1) STEMI (ST elevation myocardial infarction) ICD Code: I21.3 Status: Resolved Plan: This is a 61-year-old male with history of hypertension, dyslipidemia and coronary artery disease with chronically occlude RCA presenting with chest pain found to have multivessel are artery disease Chest pain, STEMI -status post cardiac catheterization 08/18/16 revealed chronically occlude LAD and RCA mode multivessel disease, cardiothoracic surgery consulted for CABG, likely Monday. Continue medical management, continue aspirin, lisinopril, metoprolol, statin, LDL is 134, troponin maxed at 0.06. Lisinopril dose decreased to give room for metoprolol, hydrochlorothiazide also on hold. Adjust as needed. Patient is sp Urgent Off-pump Coronary Artery Bypass Grafting x 3 with left internal mammary artery (JENKINS) to left anterior descending (LAD), reverse saphenous vein graft to D1, reverse saphenous vein graft to the distal RCA, Right Leg Endoscopic Vein [place] performed on 08/22. 08/24/[address] Chest tubes discontinued. Fu CT surgery recommendations. 08/25/16 patient on beta tracy, received an amiodarone bolus/now to start an amiodarone drip. 80s to be started in a.m. Follow-up CT surgery recommendations. (2) Leukocytosis ICD Code: D72.829 Status: Resolved Plan: Likely stress related, now resolved. Continue to monitor CBC. No signs of infection. WBC 11.4 (3) Hyperlipidemia ICD Code: E78.5 Status: Chronic Plan: Continue statin. Lipid profile showed triglycerides of 288, cholesterol 240, LDL cholesterol 134, HDL cholesterol 48.1. TSH 1.6 (4) CAD (coronary artery disease) ICD Code: I25.10 Status: Acute Plan: Patient known to have a chronically occluded RCA. Continue medical management with aspirin, statin, beta tracy , DONNY inhibitor started today. (5) Ischemic cardiomyopathy ICD Code: I25.5 Status: Acute Plan: As above. Continue statin, beta tracy, donny inhibitor (6) S/P CABG x 3 ICD Code: Z95.1 Status: Acute Plan: Management as per Ct surgery. (7) Visual disturbance ICD Code: H53.9 Status: Acute Plan: - Left eye conjunctiva is injected. This could be secondary to corneal abrasion. Patient started on erythromycin. 08/24/16 Left eye redness slightly improved. Patient still c/o left eye visual disturbance described as pringle and blue colored blue spots. Will consult ophtalmology fo r further assesment. Patient denies eye pain and elicits a history of macular degeneration. 08/25/16 pending ophthalmology consultation. (8) Afib ICD Code: I48.91 Status: Acute Plan: Patient with paroxysmal atrial fibrillation. Evaluation was given amiodarone bolus, then placed on amiodarone drip which has been switched to oral amiodarone. The patient has also been started on Lovenox 40 mg subcutaneous every [address] surgery. Possible transition to [facility] in a.m. Will follow up recommendations. Assessment and Plan GI prophylaxis: PPI. DVT prophylaxis: SCD's, Rodolfo stockings. Discharge Planning Continue to monitor on telemetry. Problem Qualifiers (1) STEMI (ST elevation myocardial infarction): Qualified Code: I21.11 - ST elevation myocardial infarction involving right coronary artery (2) CAD (coronary artery disease): Qualified Code: I25.110 - Coronary artery disease involving [place] coronary artery of [place] heart with unstable angina pectoris Casey Wright MD Aug 25, 2016 19:11
[2016-08-25] MEDS ORDERED: AMIODARONE 200 MG TAB PO SCH (21:00)
[2016-08-25] MEDS: ATORVASTATIN 40 MG TAB PO SCH (21:07)
[2016-08-26] VITALS (16 sets, daily range): BP systolic 109–139; BP diastolic 61–78; PULSE 53–68; RESP 18–20; TEMP 97.5–98; O2SAT 94–99
[2016-08-26] MEDS: ENOXAPARIN SODIUM 40 MG/0.4 ML SYRINGE SQ SCH ×2 (01:45→11:51)
[2016-08-26] MEDS: PANTOPRAZOLE SOD 40 MG DELAYED RELEASE TAB PO SCH (05:43)
[2016-08-26] MEDS: oxyCODONE/ACETAMINOPHEN 5 MG/325 MG TAB PO PRN ×2 (05:43→11:51)
[2016-08-26] MEDS: ERYTHROMYCIN 0.5% OPTH OINT 3.5 GM TUBO LEFT EYE SCH ×3 (06:00→12:00)
[2016-08-26] MEDS: INSULIN ASPART SUPPLEMENTAL SCALE SQ SCH ×2 (07:00→11:00)
[2016-08-26 07:29] LABS: AUTOMATED NEUTROPHIL # 6.8 TH/MM3 (1.8-7.7); BASOPHIL # 0.1 TH/MM3 (0-0.2); BASOPHIL % 0.9 % (0.0-2.0); EOSINOPHIL # 0.3 TH/MM3 (0-0.4); EOSINOPHIL % 3.2 % (0.0-4.0); HEMATOCRIT 31.9 % (39.0-51.0); HEMO FLAGS DIFF FINAL; LYMPH % 18.3 % (9.0-44.0); LYMPHOCYTE # 1.9 TH/MM3 (1.0-4.8); MEAN CELL VOLUME 96.2 FL (80.0-100.0); MEAN CORPUSCULAR HEMOGLOBIN 33.1 PG (27.0-34.0); MEAN CORPUSCULAR HGB CONC 34.4 % (32.0-36.0); MONO % 10.6 % (0.0-8.0); PLATELET COUNT 213 TH/MM3 (150-450); RED BLOOD COUNT 3.32 MIL/MM3 (4.50-5.90); RED CELL DISTRIBUTION WIDTH 12.9 % (11.6-17.2); WHITE BLOOD COUNT 10.1 TH/MM3 (4.0-11.0)
--- NOTE | 2016-08-26 08:36 | PD.CARD.PN ---
Subjective Subjective Remarks doing well no further afib Objective Medications Active Medications Amiodarone HCl (Cordarone) 400 mg Q12HR PO Last administered on 08/25/16 21:08 ; Admin Dose 400 MG; Start 08/25/16 at 14:00 Amiodarone HCl 400 mg 400 mg Q12HR PO; Start 08/25/16 at 21:00; Stop 08/25/16 at 21:00; Status DC Amiodarone HCl/ Dextrose (Cordarone Inj/ D5W ([facility]) Inj) 250 ml @ 0 mls/hr CONTINUOUS IV; Start 08/25/16 at 11:45 Amiodarone HCl/ Dextrose (Cordarone Inj/ D5W 100 ml Inj) 100 ml @ 100 mls/hr ONCE ONCE IV Last administered on 08/25/16 09:48; Admin Dose 100 MLS/HR; Start 08/25/16 at 11:00; Stop 08/25/16 at 11:59; Status DC Enoxaparin Sodium 40 mg 40 mg Q12H SQ Last administered on 08/26/16 01:45; Admin Dose 40 MG; Start 08/25/16 at 12:00 Metoprolol Tartrate (Lopressor) 25 mg BID PO Last administered on 08/25/16 21: 09; Admin Dose 25 MG; Start 08/25/16 at 09:00 Ramipril (Altace) 2.5 mg DAILY PO Last administered on 08/25/16 08:44; Admin Dose 2.5 MG; Start 08/25/16 at 09:00 Vital Signs / I&O Vital Signs Date Time Temp Pulse Resp B/P Pulse Ox O2 Delivery O2 Flow Rate FiO2 08/26/16 06:00 64 08/26/16 05:19 56 08/26/16 04:00 98.0 59 20 111/75 96 08/26/16 04:00 60 08/26/16 03:00 53 08/26/16 02:00 53 08/26/16 01:00 59 08/26/16 00:00 65 08/26/16 00:00 97.5 53 19 116/61 94 08/25/16 22:00 70 08/25/16 21:00 59 08/25/16 20:00 95 Room Air 08/25/16 20:00 98.0 67 20 115/69 96 08/25/16 20:00 68 08/25/16 19:00 61 08/25/16 18:00 69 08/25/16 17:00 64 08/25/16 16:00 74 08/25/16 15:50 97.5 75 19 107/72 94 08/25/16 15:00 97.5 75 20 107/72 94 08/25/16 15:00 59 08/25/16 14:00 65 08/25/16 13:00 62 08/25/16 12:00 59 08/25/16 11:00 97.9 75 19 125/74 94 08/25/16 11:00 84 08/25/16 10:00 89 08/25/16 09:00 112 I/O 08/25/16 08/25/16 08/25/16 08/26/16 08/26/16 08/26/16 07:00 15:00 23:00 07:00 15:00 23:00 Intake Total 620 ml 940 ml 480 ml Output Total 1250 ml 1275 ml 1000 ml Balance -630 ml -335 ml -520 ml Intake Oral 620 ml 840 ml 480 ml IV Total 100 ml Output Urine Total 1250 ml 1275 ml 1000 ml # Bowel Movements 0 0 Physical Exam GENERAL: SKIN: Warm and dry. HEAD: Normocephalic. EYES: No scleral icterus. No injection or drainage. NECK: Supple, trachea midline. No JVD or lymphadenopathy. CARDIOVASCULAR: Regular rate and rhythm without murmurs, gallops, or rubs. RESPIRATORY: Breath sounds equal bilaterally. No accessory muscle use. GASTROINTESTINAL: Abdomen soft, non-tender, nondistended. MUSCULOSKELETAL: No cyanosis, or edema. BACK: Nontender without obvious deformity. No CVA tenderness. Laboratory Laboratory Tests Test 08/25/16 08/26/16 13:03 06:33 Sodium Level 138 MEQ/L Potassium Level 4.1 MEQ/L Chloride Level 104 MEQ/L Carbon Dioxide Level 26.3 MEQ/L Anion Gap 8 MEQ/L Blood Urea Nitrogen 12 MG/DL Creatinine 0.99 MG/DL Estimat Glomerular Filtration 77 ML/MIN Rate Random Glucose 98 MG/DL Calcium Level 8.7 MG/DL Phosphorus Level 2.6 MG/DL Magnesium Level 2.3 MG/DL White Blood Count 10.1 TH/MM3 Red Blood Count 3.32 MIL/MM3 Hemoglobin 11.0 GM/DL Hematocrit 31.9 % Mean Corpuscular Volume 96.2 FL Mean Corpuscular Hemoglobin 33.1 PG Mean Corpuscular Hemoglobin 34.4 % Concent Red Cell Distribution Width 12.9 % Platelet Count 213 TH/MM3 Mean Platelet Volume 8.9 FL Neutrophils (%) (Auto) 67.0 % Lymphocytes (%) (Auto) 18.3 % Monocytes (%) (Auto) 10.6 % Eosinophils (%) (Auto) 3.2 % Basophils (%) (Auto) 0.9 % Neutrophils # (Auto) 6.8 TH/MM3 Lymphocytes # (Auto) 1.9 TH/MM3 Monocytes # (Auto) 1.1 TH/MM3 Eosinophils # (Auto) 0.3 TH/MM3 Basophils # (Auto) 0.1 TH/MM3 CBC Comment DIFF FINAL Differential Comment Imaging Last Impressions Chest X-Ray 08/25/16 0600 Signed Impressions: Service Date/Time: August 03:39 - CONCLUSION: 1. Cardiomegaly and venous CABG. 2. Minimal retrocardiac density likely atelectasis. 3. Removal of chest tubes without pneumothorax. Zack Shields MD Lower Extremity Ultrasound 08/19/16 0000 Signed Impressions: Service Date/Time: Friday, August 19, 2016 09:12 - CONCLUSION: Patent saphenous veins throughout bilaterally Low Lockhart MD Chest CT 08/19/16 0000 Signed Impressions: Service Date/Time: Friday, August 19, 2016 14:31 - CONCLUSION: Ascending aorta mildly dilated to about 4.2 cm. Moderate coronary calcifications. Tortuous aorta. Haroldo Fields MD Carotid Artery Ultrasound 08/19/16 0000 Signed Impressions: Service Date/Time: Friday, August 19, 2016 08:52 - CONCLUSION: Normal examination for a patient of this age. Haroldo Fields MD Assessment and Plan Problem List: (1) CAD (coronary artery disease) (2) S/P CABG x 3 (3) STEMI (ST elevation myocardial infarction) (4) Ischemic cardiomyopathy (5) Hyperlipidemia (6) Visual disturbance (7) Afib Assessment and Plan CABG x 3 cardiomyopathy - LifeVest x 3 months. repeat 2d echo. afib - change amio 200 daily. cont asa plavix statin bb Problem Qualifiers (1) CAD (coronary artery disease): Qualified Code: I25.110 - Coronary artery disease involving [place] coronary artery of [place] heart with unstable angina pectoris (2) STEMI (ST elevation myocardial infarction): Qualified Code: I21.11 - ST elevation myocardial infarction involving right coronary artery Isreal Sow MD Aug 26, 2016 08:36
[2016-08-26] MEDS: METOPROLOL TARTRATE 25 MG TAB PO SCH (09:59)
[2016-08-26] MEDS: ASPIRIN 81 MG CHEW TAB PO SCH (10:00)
[2016-08-26] MEDS: DOCUSATE SODIUM 100 MG CAP PO SCH (10:00)
[2016-08-26] MEDS: CLOPIDOGREL 75 MG TAB PO SCH (10:00)
[2016-08-26] MEDS: MULTIVITAMINS/MINERALS THERAPEUTIC TAB PO SCH (10:00)
[2016-08-26] MEDS: FUROSEMIDE 40 MG TAB PO SCH (10:00)
[2016-08-26] MEDS: POTASSIUM CHLORIDE 20 MEQ CONTROLLED RELEASE TAB PO SCH (10:00)
[2016-08-26] MEDS: AMIODARONE 200 MG TAB PO SCH (10:00)
[2016-08-26] MEDS: POLYETHYLENE GLYCOL 17 GM PKG PO SCH (10:01)
[2016-08-26] MEDS ORDERED: AMIO200T PO (10:26)
[2016-08-26] MEDS ORDERED: METO25TA3 PO (10:26)
[2016-08-26] MEDS ORDERED: DOCU1CAP39 PO (10:26)
[2016-08-26] MEDS ORDERED: Aspirin Chew PO (10:26)
[2016-08-26] MEDS ORDERED: THERM PO (10:26)
[2016-08-26] MEDS ORDERED: FURO1TAB60 PO (10:26)
[2016-08-26] MEDS ORDERED: POTA20TA5 PO (10:26)
[2016-08-26] MEDS ORDERED: PLAV75TA29 PO (10:26)
[2016-08-26] MEDS ORDERED: RAMI2.5C PO (10:26)
--- NOTE | 2016-08-26 10:38 | PD.CAR.PN ---
CVT Progress Note CVT: POD #: 4 Subjective/Hospital Course: 61 / male admitted with chest pain, HX of CAD/NH/ underwent Heart cath by Dr Sow, multivessel disease/ EF 25% by echo PMH: psoriasis, HTN, HLP 08/21/16 Denies chest pain Questions regarding CABG addressed 08/22 surgery Urgent Off-pump Coronary Artery Bypass Grafting x 3 with left internal mammary artery (JENKINS) to left anterior descending (LAD), reverse saphenous vein graft to D1, reverse saphenous vein graft to the distal RCA, Right Leg Endoscopic Vein [place] 08/23 extubated post surgery had air leak in one of chest tubes yesterday chest tubes to individual pleuravac, no further air leak noted on nasal cannula c/o left eye feeling scratchy/ some corneal injection noted stable for transfer to stepdown 08/24 chest tubes removed without difficulty on room air gentle diuresis add low dose anson pt will need Life vest at discharge/ discussed with Dr Sow still has some left eye visual disturbance/ ophthalmology consulted 08/25 pt went into afib rvr last pm on BB, received amiodarone bolus/ now to start on amiodarone gtt will start lovenox/ consider xarelto in am 08/26 pt converted to NSR, x 24 hrs will dc on ASA, plavix appreciate opthamology life vest in place stable for dc home from [facility] standpoint . Objective: GENERAL: SKIN: Warm and dry.incision intact and well approximated to chest HEAD: Normocephalic. EYES: No scleral icterus. No injection or drainage. NECK: Supple, trachea midline. No JVD or lymphadenopathy. CARDIOVASCULAR: Regular rate and rhythm without murmurs, gallops, or rubs. lifevest in place RESPIRATORY: Breath sounds equal bilaterally. No accessory muscle use. GASTROINTESTINAL: Abdomen soft, non-tender, nondistended. MUSCULOSKELETAL: No cyanosis, or edema. BACK: Nontender without obvious deformity. No CVA tenderness. Vital Signs Date Time Temp Pulse Resp B/P Pulse Ox O2 Delivery O2 Flow Rate FiO2 08/26/16 06:00 64 08/26/16 05:19 56 08/26/16 04:00 98.0 59 20 111/75 96 08/26/16 04:00 60 08/26/16 03:00 53 08/26/16 02:00 53 08/26/16 01:00 59 08/26/16 00:00 65 08/26/16 00:00 97.5 53 19 116/61 94 08/25/16 22:00 70 08/25/16 21:00 59 08/25/16 20:00 95 Room Air 08/25/16 20:00 98.0 67 20 115/69 96 08/25/16 20:00 68 08/25/16 19:00 61 08/25/16 18:00 69 08/25/16 17:00 64 08/25/16 16:00 74 08/25/16 15:50 97.5 75 19 107/72 94 08/25/16 15:00 97.5 75 20 107/72 94 08/25/16 15:00 59 08/25/16 14:00 65 08/25/16 13:00 62 08/25/16 12:00 59 08/25/16 11:00 97.9 75 19 125/74 94 08/25/16 11:00 84 Labs: Laboratory Tests Test 08/26/16 06:33 White Blood Count 10.1 TH/MM3 (4.0-11.0) Red Blood Count 3.32 MIL/MM3 (4.50-5.90) Hemoglobin 11.0 GM/DL (13.0-17.0) Hematocrit 31.9 % (39.0-51.0) Mean Corpuscular Volume 96.2 FL (80.0-100.0) Mean Corpuscular Hemoglobin 33.1 PG (27.0-34.0) Mean Corpuscular Hemoglobin 34.4 % Concent (32.0-36.0) Red Cell Distribution Width 12.9 % (11.6-17.2) Platelet Count 213 TH/MM3 (150-450) Mean Platelet Volume 8.9 FL (7.0-11.0) Neutrophils (%) (Auto) 67.0 % (16.0-70.0) Lymphocytes (%) (Auto) 18.3 % (9.0-44.0) Monocytes (%) (Auto) 10.6 % (0.0-8.0) Eosinophils (%) (Auto) 3.2 % (0.0-4.0) Basophils (%) (Auto) 0.9 % (0.0-2.0) Neutrophils # (Auto) 6.8 TH/MM3 (1.8-7.7) Lymphocytes # (Auto) 1.9 TH/MM3 (1.0-4.8) Monocytes # (Auto) 1.1 TH/MM3 (0-0.9) Eosinophils # (Auto) 0.3 TH/MM3 (0-0.4) Basophils # (Auto) 0.1 TH/MM3 (0-0.2) CBC Comment DIFF FINAL Differential Comment Result Diagram: 08/26/16 0633 08/25/16 1303 Telemetry: NSR (1) STEMI (ST elevation myocardial infarction) (2) S/P CABG x 3 Plan: ASA, plavix, statin, bb continue IS at home (3) Ischemic cardiomyopathy Plan: on low dose anson life vest (4) Hyperlipidemia Plan: on statin (5) Visual disturbance (6) Afib Plan: resolved on low dose amiodarone and BB (7) Cotton wool spots Plan: pt o/o of streaks of blue and arevalo in his field of vision. No decrease in acuity. 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 Virgilio Cavazos. Can have many causes: embolic (carotid, cardiac), ischemic (HTN, acute blood loss). Treatment is directed toward underlying etiology. Cotton wool spots will usually resolve in 6-12 weeks. Recommend outpatient follow up with his Retina specialist, Dr. Cavazos. Problem Qualifiers (1) STEMI (ST elevation myocardial infarction): Qualified Code: I21.11 - ST elevation myocardial infarction involving right coronary artery Shelia Vasquez Aug 26, 2016 10:38
[2016-08-26] MEDS: RAMIPRIL 2.5 MG CAP PO SCH (11:49)
[2016-08-26] MEDS: SODIUM CHLORIDE 0.9% FLUSH 5 ML FLUSH IV FLUSH SCH (11:49)
--- NOTE | 2016-08-26 12:44 | HHI.DS ---
Discharge Summary Admission Date Aug 18, 2016 at 14:59 Discharge Date: Aug 26, 2016 Admitting Diagnosis STEMI (1) STEMI (ST elevation myocardial infarction) ICD Code: I21.3 Diagnosis: Principal (2) Leukocytosis ICD Code: D72.829 Diagnosis: Principal (3) Hyperlipidemia ICD Code: E78.5 Diagnosis: Principal (4) CAD (coronary artery disease) ICD Code: I25.10 Diagnosis: Secondary (5) Ischemic cardiomyopathy ICD Code: I25.5 Diagnosis: Principal (6) S/P CABG x 3 ICD Code: Z95.1 Diagnosis: Principal (7) Visual disturbance ICD Code: H53.9 Diagnosis: Principal (8) Afib ICD Code: I48.91 Diagnosis: Principal (9) Cotton wool spots ICD Code: H35.81 Diagnosis: Principal Procedures 08/22/2016 Urgent Off-pump Coronary Artery Bypass Grafting x 3 with left internal mammary artery (JENKINS) to left anterior descending (LAD), reverse saphenous vein graft to D1, reverse saphenous vein graft to the distal RCA, Right Leg Endoscopic Vein Hamer Brief History - From Admission This is a 62-year-old male with known history of coronary artery disease with chronic reoccluded right coronary artery in 2009 and hypertension, presenting with intermittent chest pain with palpitations. EKG showed ST segment elevation , patient was immediately brought to the OR for cardiac catheterization. Cardiac catheter showed included left anterior descending and mid right coronary artery with collateralization. There is also severe proximal LAD leading to a large diagonal branch status post angioplasty. Given multivessel disease, plan is for bypass surgery for full revascularization. We are being consulted for medical comanagement of chronic conditions. Presently, patient is chest pain-free, no palpitations, shortness of breath, nausea, vomiting or diaphoresis. Patient is anxious about the surgery but otherwise feeling good. No abdominal pain, diarrhea or urinary symptoms. He is afebrile. CBC/BMP: 08/26/16 0633 08/25/16 1303 Significant Findings Laboratory Tests Test 08/24/16 08/25/16 08/26/16 04:05 13:03 06:33 White Blood Count 11.3 TH/MM3 (4.0-11.0) Red Blood Count 3.32 MIL/MM3 3.32 MIL/MM3 (4.50-5.90) (4.50-5.90) Hemoglobin 10.8 GM/DL 11.0 GM/DL (13.0-17.0) (13.0-17.0) Hematocrit 31.8 % 31.9 % (39.0-51.0) (39.0-51.0) Neutrophils (%) (Auto) 71.3 % (16.0-70.0) Monocytes (%) (Auto) 12.2 % 10.6 % (0.0-8.0) (0.0-8.0) Neutrophils # (Auto) 8.0 TH/MM3 (1.8-7.7) Monocytes # (Auto) 1.4 TH/MM3 1.1 TH/MM3 (0-0.9) (0-0.9) Estimat Glomerular Filtration 81 ML/MIN (>89) 77 ML/MIN (>89) Rate Calcium Level 8.1 MG/DL (8.5-10.1) Aspartate Amino Transf 13 U/L (15-37) (AST/SGOT) Total Protein 5.6 GM/DL (6.4-8.2) Albumin 2.9 GM/DL (3.4-5.0) Imaging Last Impressions Chest X-Ray 08/25/16 0600 Signed Impressions: Service Date/Time: August 03:39 - CONCLUSION: 1. Cardiomegaly and venous CABG. 2. Minimal retrocardiac density likely atelectasis. 3. Removal of chest tubes without pneumothorax. Zack Shields MD Lower Extremity Ultrasound 08/19/16 0000 Signed Impressions: Service Date/Time: Friday, August 19, 2016 09:12 - CONCLUSION: Patent saphenous veins throughout bilaterally Low Lockhart MD Chest CT 08/19/16 0000 Signed Impressions: Service Date/Time: Friday, August 19, 2016 14:31 - CONCLUSION: Ascending aorta mildly dilated to about 4.2 cm. Moderate coronary calcifications. Tortuous aorta. Haroldo Fields MD Carotid Artery Ultrasound 08/19/16 0000 Signed Impressions: Service Date/Time: Friday, August 19, 2016 08:52 - CONCLUSION: Normal examination for a patient of this age. Haroldo Fields MD PE at Discharge GENERAL: This is a well-nourished, well-developed patient, in no apparent distress. SKIN: No rashes, ecchymoses or lesions. Cool and dry. HEAD: Atraumatic. Normocephalic. No temporal or scalp tenderness. EYES: Pupils equal round and reactive. Extraocular motions intact. No scleral icterus. ENT: Nose without bleeding, purulent drainage or septal hematoma. Throat without erythema, tonsillar hypertrophy or exudate. Uvula midline. Airway patent. NECK: Trachea midline. No JVD or lymphadenopathy. Supple, nontender, no meningeal signs. CARDIOVASCULAR: Regular rate and rhythm without murmurs, gallops, or rubs. chest tube in place. dressing on chest id C/D/I. RESPIRATORY: Clear to auscultation. Breath sounds equal bilaterally. No wheezes , rales, or rhonchi. GASTROINTESTINAL: Abdomen soft, non-tender, nondistended. No hepato-splenomegaly , or palpable masses. No guarding. MUSCULOSKELETAL: Extremities without clubbing, cyanosis, or edema. No joint tenderness, effusion, or edema noted. No calf tenderness. Negative Homans sign bilaterally. NEUROLOGICAL: Awake and alert. Cranial nerves II through XII intact. Motor and sensory grossly within normal limits. Five out of 5 muscle strength in all muscle groups. Normal speech. Hospital Course (1) STEMI (ST elevation myocardial infarction) Plan: This is a 61-year-old male with history of hypertension, dyslipidemia and coronary artery disease with chronically occlude RCA presenting with chest pain found to have multivessel are artery disease Chest pain, STEMI -status post cardiac catheterization 08/18/16 revealed chronically occlude LAD and RCA mode multivessel disease, cardiothoracic surgery consulted for CABG, likely Monday. Continue medical management, continue aspirin, lisinopril, metoprolol, statin, LDL is 134, troponin maxed at 0.06. Lisinopril dose decreased to give room for metoprolol, hydrochlorothiazide also on hold. Adjust as needed. Patient is sp Urgent Off-pump Coronary Artery Bypass Grafting x 3 with left internal mammary artery (JENKINS) to left anterior descending (LAD), reverse saphenous vein graft to D1, reverse saphenous vein graft to the distal RCA, Right Leg Endoscopic Vein Hamer performed on 1/9. Chest tube was discontinued on 08/24/16. Patient will be discharged on aspirin and Plavix, beta tracy, amiodarone by mouth. Patient will follow-up with his computational biologist Dr. whitten and his PCP. (2) Leukocytosis Likely stress related, now resolved. Continue to monitor CBC. No signs of infection throughout her hospitalization. Leukocytosis likely stress related. (3) Hyperlipidemia Statin and was continued. Lipid profile showed triglycerides of 288, cholesterol 240, LDL cholesterol 134, HDL cholesterol 48.1. TSH 1.6 (4) CAD (coronary artery disease) Patient known to have a chronically occluded RCA. Continue medical management with aspirin, statin, beta tracy , DONNY inhibitor started today. (5) Ischemic cardiomyopathy As above. Continue statin, beta tracy, donny inhibitor (6) S/P CABG x [address] surgery. (7) Visual disturbance After surgical procedure, the patient started complaining of visual disturbance described as grade colored blue spots. Also her left eye conjunctiva was injected, the patient was prescribed erythromycin by cardiac thoracic surgery. Ophthalmology was consulted. The patient was found to have a left eye tear and cotton-wool spots. Patient denied eye pain all along. Cotton-wool spots could be seen in carotid or cardiac disease. Also seen in hypertension. The patient just had cardiothoracic surgery. Case discussed with CT surgery ROXANNE Vasquez. MRI cannot be done due to the wires. A could be done after 6 weeks. Ophthalmology recommended follow-up with the patient retinal specialist as he has had previous history of macular degeneration. The patient is advised to follow-up with his retina specialist Dr. Cavazos next week. (8) Afib Patient went into atrial fibrillation with RVR on 08/24/16. Patient was given amiodarone bolus, then placed on amiodarone drip which has been switched to oral amiodarone. The patient has also been started on Lovenox 40 mg subcutaneous every [address] surgery. Patient will be discharged on aspirin and Plavix as per CT surgery recommendations. GI prophylaxis: PPI. DVT prophylaxis: SCD's, Rodolfo stockings. Pt Condition on Discharge: Stable Discharge Disposition: Disch w/ Home Health Serv Discharge Time: > 30 minutes Discharge Instructions DIET: Follow Instructions for: Heart Healthy Diet Activities you can perform: Regular-No Restrictions Activities to Avoid: Lifting/Bending, Strenuous Activity, Driving Other Activity Instructions: Do not ride in the front seat of a car Do not drive until cleared by CT surgeon Follow up Referrals: Cardiology - 4 Weeks with Isreal Whitten MD PCP Follow-up - 2 Weeks with Mehrdad Guzman M.d. Surgical New Medications: Amiodarone (Amiodarone) 200 Mg Tab 200 MG PO DAILY heart rhythm #30 Ref 0 TAB Clopidogrel (Plavix) 75 Mg Tab 75 MG PO DAILY Blood Clot Prevention #30 Ref 1 TAB Docusate Sodium (Dok) 100 Mg Cap 100 MG PO BID Constipation #60 CAP Furosemide (Lasix) 40 Mg Tab 20 MG PO DAILY edema #7 Ref 1 TAB Metoprolol Tartrate (Metoprolol Tartrate) 25 Mg Tab 25 MG PO BID Blood Pressure Management #60 Ref 1 TAB Multiple Vitamins W/ Minerals (Thera M Plus) 1 Tab 1 TAB PO DAILY multi vitamin #30 TAB Potassium Chloride Microencaps (Potassium Chloride Microencaps) 20 Meq Tab 10 MEQ PO DAILY take with lasix #7 Ref 1 TAB Ramipril (Ramipril) 2.5 Mg Cap 2.5 MG PO DAILY Blood Pressure Management #30 Ref 1 CAP ([Aspirin Chew]) 81 MG CHEW 81 MG PO DAILY Blood Clot Prevention Ref 1 TAB.CHEW Continued Medications: Simvastatin (Simvastatin) 40 Mg Tab 40 MG PO HS Cholesterol Management #30 Ref 0 TAB Discontinued Medications: Lisinopril-Hctz (Lisinopril-Hctz) 20-25 Mg Tab 1 TAB PO DAILY Blood Pressure Management #30 Ref 0 TAB Casey Wright MD Aug 26, 2016 12:44
--- NOTE | 2016-09-02 12:27 | RSPPFT ---
DATE OF PROCEDURE: 08/19/16 COMMENTS: Spirometry with FVC of 5.5 predicted 5.9, FEV1 of 4.6 predicted 4.7, FEV1/FVC ratio 84% predicted 77%. IMPRESSION: On the basis of the above, patient's spirometry is within the normal range.
== END 2016-08-26 16:38 | disposition home health service (06) | DRG 232 ==
LOC: NEPC 14:44 → NEDA 14:59 → HCIN 16:32 → HCIS 08-22 07:01 → HCVR 08-22 11:46 → HCPC 08-23 11:02 → HCIN 08-23 14:40 → HCPC 08-24 16:46
PROVIDERS: ADMIT Hospitalist; ATTEND Hospitalist
PROC: 02703ZZ Dilation of Coronary Artery, One Artery, Percutaneous Approach (ICD-10-PCS; 2016-08-18)
PROC: 4A023N7 Measurement of Cardiac Sampling and Pressure, Left Heart, Percutaneous Approach (ICD-10-PCS; 2016-08-18)
PROC: B2111ZZ Fluoroscopy of Multiple Coronary Arteries using Low Osmolar Contrast (ICD-10-PCS; 2016-08-18)
PROC: B2151ZZ Fluoroscopy of Left Heart using Low Osmolar Contrast (ICD-10-PCS; 2016-08-18)
PROC: 02100Z9 Bypass Coronary Artery, One Artery from Left Internal Mammary, Open Approach (ICD-10-PCS; 2016-08-22)
PROC: 06BP4ZZ Excision of Right Saphenous Vein, Percutaneous Endoscopic Approach (ICD-10-PCS; 2016-08-22)
PROC: 021109W Bypass Coronary Artery, Two Arteries from Aorta with Autologous Venous Tissue, Open Approach (ICD-10-PCS; principal; 2016-08-22 07:04)
DX: I21.11 ST elevation (STEMI) myocardial infarction involving right coronary artery (principal); I48.0 Paroxysmal atrial fibrillation; I10 Essential (primary) hypertension; J98.11 Atelectasis; J95.89 Other postprocedural complications and disorders of respiratory system, not elsewhere classified; I25.110 Atherosclerotic heart disease of native coronary artery with unstable angina pectoris; E78.5 Hyperlipidemia, unspecified; D72.829 Elevated white blood cell count, unspecified; L40.9 Psoriasis, unspecified; R06.89 Other abnormalities of breathing; H35.81 Retinal edema; H35.3220 Exudative age-related macular degeneration, left eye, stage unspecified; I25.5 Ischemic cardiomyopathy; Z87.891 Personal history of nicotine dependence
CPT/HCPCS: 36430; 71010; 71250; 76937; 80048; 80053; 80061; 81001; 82310; 82435; 82550; 82552; 82565; 82947; 82948; 83036; 83735; 83880; 84100; 84132; 84295; 84443; 84484; 84520; 85014; 85025; 85027; 85610; 85730; 86850; 86900; 86901; 86920; 87641; 92941; 93005; 93306; 93318; 93458; 93880; 93970; 93998; 94002; 94010; 94150; 94640; 94664; 94667; 94668; C1725; C1768; C1769; C1887; C1893; C9399; J0131; J0282; J0583; J0690; J1644; J1650; J1815; J1817; J1885; J2250; J2370; J2440; J2720; J3010; J3370; J3475; J3480; J7030; J7120; P9016; P9045; Q9967

== ENCOUNTER 2016-11-07 09:11 | Day surgery (SDC) | payer BC ==
[~2016-11-07] VITALS: Ht 195.6 cm; Wt 106.5 kg
[~2016-11-07 09:11] MED LIST: AMIO200T PO; Aspirin Chew PO; DOCU1CAP39 PO; FURO1TAB60 PO; METO25TA3 PO; PLAV75TA29 PO; POTA20TA5 PO; RAMI2.5C PO; SIMV40TA PO; THERM PO
[2016-11-07 09:58] VITALS: BP 170/120; PULSE 64; RESP 16; TEMP 97.8; O2SAT 100
[2016-11-07] MEDS ORDERED: ceFAZolin 2 GM PREMIX 50 ML IV SCH (10:00)
[2016-11-07] MEDS ORDERED: SODIUM CHLORID 0.9% 500 ML IV SCH (10:00)
[2016-11-07] MEDS ORDERED: LACTATED RINGER'S 1000 ML IV SCH (10:00)
[2016-11-07] MEDS ORDERED: POVIDONE IODINE 5% (ANTISEPSIS KIT) 4 APPLICATIONS EACH NARE SCH (10:00)
[2016-11-07] MEDS ORDERED: INSULIN HUMAN REGULAR 1,000 UNITS/10 ML VIAL SQ PRN (10:00)
[2016-11-07] MEDS ORDERED: MUPIROCIN 2% OINT 1 APPLIC/GM SYR NASAL SCH (10:00)
[2016-11-07] MEDS ORDERED: CHLORHEXIDINE GLUCONATE 2 % 1 PACK (2 CLOTHS) TOP SCH (10:00)
[2016-11-07] MEDS ORDERED: VANCOMYCIN 1000 MG/NS 250 ML IV SCH ×2 (10:00)
[2016-11-07] MEDS ORDERED: NS 1000 ML IV SCH (10:00)
[2016-11-07] MEDS ORDERED: METOPROLOL TARTRATE 25 MG TAB PO PRN (10:00)
[2016-11-07] MEDS ORDERED: METO50TA PO (10:02)
[2016-11-07] MEDS ORDERED: LISI-515 PO (10:02)
[2016-11-07 10:29] LABS: AUTOMATED NEUTROPHIL # 3.5 TH/MM3 (1.8-7.7); BASOPHIL # 0.1 TH/MM3 (0-0.2); BASOPHIL % 1.7 % (0.0-2.0); EOSINOPHIL # 0.4 TH/MM3 (0-0.4); EOSINOPHIL % 5.1 % (0.0-4.0); HEMATOCRIT 43.8 % (39.0-51.0); HEMO FLAGS DIFF FINAL; LYMPH % 38.9 % (9.0-44.0); LYMPHOCYTE # 2.9 TH/MM3 (1.0-4.8); MEAN CELL VOLUME 88.4 FL (80.0-100.0); MEAN CORPUSCULAR HEMOGLOBIN 28.6 PG (27.0-34.0); MEAN CORPUSCULAR HGB CONC 32.4 % (32.0-36.0); MONO % 6.4 % (0.0-8.0); NEUT % 47.9 % (16.0-70.0); PLATELET COUNT 278 TH/MM3 (150-450); RED BLOOD COUNT 4.96 MIL/MM3 (4.50-5.90); RED CELL DISTRIBUTION WIDTH 15.8 % (11.6-17.2); WHITE BLOOD COUNT 7.4 TH/MM3 (4.0-11.0)
[2016-11-07] MEDS ORDERED: MIDAZOLAM HCL 2 MG/2 ML VIAL ONE ×2 (10:31→11:53)
[2016-11-07 10:38] LABS: APTT (PATIENT) 29.1 SEC (24.3-30.1); PROTHROMBIN TIME - PATIENT 11.4 SEC (9.8-11.6)
[2016-11-07 10:51] LABS: BICARBONATE 27.1 MEQ/L (21.0-32.0); POTASSIUM 3.8 MEQ/L (3.5-5.1)
[2016-11-07] MEDS ORDERED: VANCOMYCIN 500 MG VIAL ONE (10:54)
[2016-11-07] MEDS ORDERED: LIDOCAINE HCL 2% 50 ML VIAL ONE (10:54)
--- NOTE | 2016-11-07 11:40 | PD.CARD ---
SINGLE CHAMBER DEFIB IMPLANT PROCEDURE DATE: Nov 07, 2016 NYHA Classification: Class II (Mild) Prevention: Primary Single Chamber Defib Implant PROCEDURE: Single chamber defibrillator implantation and device testing. INDICATIONS: Mr. Adam is a 61 -year-old male with hx of congestive heart failure, ejection fraction 25%, coronary artery disease, to undergo defibrillator implantation for sudden primary prevention. The risks, the nature and the benefit of the procedure are clearly stated to him . Risks include pneumothorax, cardiac perforation, stroke and even . He understood and agreed to proceed. PROCEDURE: After written, informed consent was obtained, the patient was brought to the EP Lab where he was prepped and draped in the sterile fashion. Conscious sedation was initiated and maintained throughout the procedure by anesthesiologist. Once sedation was verified, the left infraclavicular area was anesthetized with 2% Xylocaine. Using modified Seldinger technique, the left subclavian vein was cannulated on one occasion and one guide wire was advanced. Then, using #11 blade scalpel, a 3-cm incision was made two fingerbreadths below left clavicle. This incision was then taken down to the deep fascial layer using Bovie cautery and blunt dissection. Into the inferomedial direction, a device pocket was dissected, then the wire was dissected into the pocket. A 2-0 Vicryl suture was placed around the wires to prevent bleeding. At this point, over the wire, the 8- Cambodian dilator and introducer was advanced. As dilator and wire were removed, an active fixation right ventricular pacing, sensing and defibrillatory lead was advanced. After adequate pacing and sensing thresholds were obtained, the lead was secured in the pocket with #2 Ethibond suture. At that point, the pocket was copiously irrigated with antibiotic solution. The leads were connected to the generator and placed into the pocket. I did proceed with NIPS. Initial induction consisted of T-wave shock which induced ventricular fibrillation which was adequately detected and treated by the ICD generator, delivering a 20 -joule defibrillatory shock converting the patient back into sinus rhythm. Shocking impedance was 69 ohms, charge time 3.9 seconds. At that point NIPS was complete. I did proceed with wound closure. The deep fascial layer was approximated with 2-0 Vicryl suture in a continuous fashion. The subcutaneous layer was approximated with 2-0 Vicryl suture in a continuous fashion. The subcuticular layer was approximated with 2-0 Vicryl suture in a continuous fashion. Dermabond adhesive was applied to the wound, followed by a sterile pressure dressing. There was no complication. The patient tolerated procedure. Blood loss minimal. 1. Implanted Hardware: The implanted defibrillator generator is a [employer], model number 143570, serial number [id number]. The right ventricular pacing, sensing and defibrillatory lead is a [employer] model number 826819, serial number [id number]. 2. Thresholds: The right ventricular pacing threshold in the bipolar mode was0.7 volts at 0.5 milliseconds, lead impedance 825 ohms and R-wave at 24.1 mV. The right ventricular defibrillatory threshold less than 20 joules shocking , impedance 69 ohms, charge time 3.9 seconds. 3. Settings: The device set in VVI40 defibrillatory portion for two zones, one zone for ventricular tachycardia between 170 and 240 beats per minute. Initial therapy consists of one burst of ATP, one ramp, 81%, 10 pulse, 10 millisecond decremental, followed by 20, then 30 and all subsequent shocks at 40 joules defibrillatory shock, the second zone for ventricular fibrillation above 240 beats per minute, first therapy at 30 and all subsequent shocks at 40 joules defibrillatory shock. CONCLUSIONS: Successful defibrillator implantation and device testing. COMMENT AND RECOMMENDATIONS: The patient will be transferred to the telemetry unit, will be observed and when stable can be discharged home. Nany Grullon MD Nov 07, 2016 11:40
[2016-11-07] MEDS ORDERED: SODIUM CHLORIDE 0.9% FLUSH 10 ML FLUSH IV FLUSH PRN (11:45)
[2016-11-07] MEDS ORDERED: ACETAMINOPHEN/CODEINE 300 MG/30 MG TAB PO PRN (12:00)
[2016-11-07] MEDS ORDERED: TEMAZEPAM 15 MG CAP PO PRN (12:00)
[2016-11-07] MEDS ORDERED: MAGNESIUM HYDROXIDE SUSP 30 ML CUP PO PRN (13:00)
[2016-11-07] MEDS ORDERED: ONDANSETRON HCL 4 MG/2 ML VIAL IV PRN (13:00)
[2016-11-07] MEDS ORDERED: PROPOFOL 200 MG/20 ML AMP IV ONE (13:05)
--- NOTE | 2016-11-07 13:15 | RADRPT ---
EXAM DATE/TIME: 11/07/2016 12:07 [facility] COMPARISON: CHEST SINGLE AP, August 25, 2016, 3:39. INDICATIONS : Short of breath, post ICD MEDICAL HISTORY : Hypertension. SURGICAL HISTORY : CABG. ICD ENCOUNTER: Subsequent ACUITY: 1 day PAIN SCORE: 7/10 LOCATION: Bilateral chest FINDINGS: Pacer is implanted on the left without pneumothorax. Right lung is clear. Sternal wires are noted. Heart is minimally enlarged, pulmonary vascularity is normal. CONCLUSION: Pacer on left without pneumothorax. Emory Wang MD FACR on November 07, 2016 at 13:09 Board Certified Radiologist. This report was verified electronically.
[2016-11-07] MEDS: ACETAMINOPHEN/CODEINE 300 MG/30 MG TAB PO PRN ×3 (14:16→22:50)
[2016-11-07] MEDS: ceFAZolin 2 GM PREMIX 50 ML IV SCH (18:38)
[2016-11-07 20:00] VITALS: BP 152/97; PULSE 64; PULSE 68; RESP 20; O2SAT 98
[2016-11-07 22:00] VITALS: PULSE 66
[2016-11-07 23:00] VITALS: PULSE 64
[2016-11-07] MEDS ORDERED: RAMI2.5C PO (23:16)
[2016-11-07] MEDS ORDERED: POTA8TAB3 PO (23:16)
[2016-11-07] MEDS ORDERED: SIMV40TA PO (23:16)
[2016-11-07] MEDS ORDERED: LISI40TA PO (23:16)
[2016-11-07] MEDS ORDERED: FURO40TA PO (23:18)
[2016-11-08] VITALS (9 sets, daily range): BP systolic 144–168; BP diastolic 99–110; PULSE 60–70; RESP 18–20; TEMP 97.7–98; O2SAT 94–100
[2016-11-08] MEDS: ACETAMINOPHEN/CODEINE 300 MG/30 MG TAB PO PRN (02:55)
[2016-11-08] MEDS: ceFAZolin 2 GM PREMIX 50 ML IV SCH ×2 (02:56→10:11)
[2016-11-08] MEDS ORDERED: RAMI5CAP PO (08:38)
[2016-11-08] MEDS ORDERED: CEPH-460 PO (08:38)
--- NOTE | 2016-11-08 08:46 | PD.CARD.PN ---
Subjective Subjective Remarks Feels ok. Objective Medications Current Medications Medications (Trade) Dose Ordered Sig/[place] Route Start Time Stop Time Status Last Admin Lactated Ringer's 1,000 ml @ 30 mls/hr Q24H IV 11/07/16 10:00 Sodium Chloride 500 ml @ 30 mls/hr [id number] IV 11/07/16 10:00 11/08/16 09:59 Sodium Chloride 1,000 ml @ 30 mls/hr Q24H IV 11/07/16 10:00 (Ancef 2 Gm Premix) 50 ml @ 100 mls/hr Q8H IV 11/07/16 18:00 11/08/16 10:29 11/08/16 02:56 (Restoril) 15 mg HS PRN PO 11/07/16 12:00 (Milk Of Magnesia Liq) 30 ml Q6H PRN PO 11/07/16 13:00 (Zofran Inj) 4 mg Q4H PRN IV 11/07/16 13:00 (Tylenol-Codeine #3) 1 tab Q4H PRN PO 11/07/16 12:00 (Tylenol-Codeine #3) 2 tab Q4H PRN PO 11/07/16 12:00 11/08/16 02:55 (NS Flush) 2 ml UNSCH PRN IV FLUSH 11/07/16 11:45 (Plavix) 75 mg DAILY PO 11/08/16 09:00 UNV (Lasix) 40 mg DAILY PO 11/08/16 09:00 UNV (Lopressor) 50 mg BID PO 11/08/16 09:00 UNV (KCl) 8 meq DAILY PO 11/08/16 09:00 UNV Non-Formulary Medication 40 mg HS PO 11/08/16 21:00 UNV Non-Formulary Medication 81 mg DAILY PO 11/08/16 09:00 UNV (Altace) 5 mg DAILY PO 11/08/16 09:00 UNV Vital Signs / I&O Vital Signs Date Time Temp Pulse Resp B/P Pulse Ox O2 Delivery O2 Flow Rate FiO2 11/08/16 06:00 60 11/08/16 05:00 64 11/08/16 04:00 97.7 69 20 144/99 97 11/08/16 04:00 70 11/08/16 04:00 69 11/08/16 03:00 68 11/08/16 02:00 68 11/08/16 01:00 70 11/08/16 00:00 62 11/08/16 00:00 64 11/08/16 00:00 98.0 68 20 168/105 94 11/07/16 23:00 64 11/07/16 22:00 66 11/07/16 20:00 64 11/07/16 20:00 68 20 152/97 98 11/07/16 11:56 94 Room Air 11/07/16 09:58 97.8 64 16 170/120 100 I/O 11/07/16 11/07/16 11/07/16 11/08/16 11/08/16 11/08/16 07:00 15:00 23:00 07:00 15:00 23:00 Intake Total 240 ml Balance 240 ml Intake Oral 240 ml # Voids 1 Physical Exam GENERAL: Well-nourished, well-developed patient. SKIN: Warm and dry. LCW well approximated without erythema or drainage. HEAD: Normocephalic. EYES: No scleral icterus. No injection or drainage. NECK: Supple, trachea midline. No JVD or lymphadenopathy. CARDIOVASCULAR: Regular rate and rhythm without murmurs, gallops, or rubs. RESPIRATORY: Breath sounds equal bilaterally. No accessory muscle use. GASTROINTESTINAL: Abdomen soft, non-tender, nondistended. EXTREMITIES: No cyanosis, or edema. NEUROLOGICAL: Awake, alert, and oriented x 3. Non-focal. Laboratory Laboratory Tests Test 11/07/16 09:42 White Blood Count 7.4 TH/MM3 Red Blood Count 4.96 MIL/MM3 Hemoglobin 14.2 GM/DL Hematocrit 43.8 % Mean Corpuscular Volume 88.4 FL Mean Corpuscular Hemoglobin 28.6 PG Mean Corpuscular Hemoglobin 32.4 % Concent Red Cell Distribution Width 15.8 % Platelet Count 278 TH/MM3 Mean Platelet Volume 8.0 FL Neutrophils (%) (Auto) 47.9 % Lymphocytes (%) (Auto) 38.9 % Monocytes (%) (Auto) 6.4 % Eosinophils (%) (Auto) 5.1 % Basophils (%) (Auto) 1.7 % Neutrophils # (Auto) 3.5 TH/MM3 Lymphocytes # (Auto) 2.9 TH/MM3 Monocytes # (Auto) 0.5 TH/MM3 Eosinophils # (Auto) 0.4 TH/MM3 Basophils # (Auto) 0.1 TH/MM3 CBC Comment DIFF FINAL Differential Comment Prothrombin Time 11.4 SEC Prothromb Time International 1.0 RATIO Ratio Activated Partial 29.1 SEC Thromboplast Time Sodium Level 139 MEQ/L Potassium Level 3.8 MEQ/L Chloride Level 103 MEQ/L Carbon Dioxide Level 27.1 MEQ/L Anion Gap 9 MEQ/L Blood Urea Nitrogen 10 MG/DL Creatinine 0.84 MG/DL Estimat Glomerular Filtration 93 ML/MIN Rate Random Glucose 93 MG/DL Calcium Level 9.3 MG/DL Blood Type A POSITIVE Antibody Screen NEGATIVE Imaging Last Impressions Chest X-Ray 11/07/16 0000 Signed Impressions: Service Date/Time: Monday, November 07, 2016 12:07 - CONCLUSION: Pacer on left without pneumothorax. Emory Wang MD FACR Assessment and Plan Problem List: (1) Ischemic cardiomyopathy Assessment and Plan: EF 25%, on optimized medications. Stable s/p ICD implantation for SCD prevention. Extensive post-op teaching completed, all questions answered. (2) Afib Assessment and Plan: Had a brief episode s/p CABG of less than 1 day. Not on anticoagulant per pt. Assessment and Plan DC home, f/u with Dr. Grullon in 2 weeks, then Dr. Sow thereafter per my d/w Dr. Grullon. Problem Qualifiers (1) Afib: Qualified Code: I48.0 - Paroxysmal atrial fibrillation Rebeca Santoro Nov 08, 2016 08:46
[2016-11-08] MEDS ORDERED: FUROSEMIDE 40 MG TAB PO SCH (09:00)
[2016-11-08] MEDS ORDERED: POTASSIUM CHLORIDE 8 MEQ CONTROLLED RELEASE TAB PO SCH (09:00)
[2016-11-08] MEDS ORDERED: ASPIRIN 81 MG CHEW TAB PO SCH (09:00)
[2016-11-08] MEDS ORDERED: METOPROLOL TARTRATE 50 MG TAB PO SCH (09:00)
[2016-11-08] MEDS ORDERED: RAMIPRIL 2.5 MG CAP PO SCH ×2 (09:00)
[2016-11-08] MEDS ORDERED: CLOPIDOGREL 75 MG TAB PO SCH (09:00)
[2016-11-08] MEDS ORDERED: LISI40TA PO (10:49)
--- NOTE | 2016-11-08 12:57 | EKG ---
Date Performed: 11/07/2016 Time Performed: 10:18:30 PTAGE: 61 years EKG: Sinus bradycardia IV conduction defect Inferior infarct - age undetermined Anteroseptal inf arct - age undetermined Abnormal ECG Compared to prior tracing no significant change DOCTOR: Alejandro Goode Interpretating Date/Time 11/08/2016 12:54:39
[2016-11-08] MEDS ORDERED: PRAVASTATIN SOD 80 MG TAB PO SCH (21:00)
--- NOTE | 2016-11-08 22:19 | EKG ---
Date Performed: 11/07/2016 Time Performed: 13:25:48 PTAGE: 61 years EKG: Sinus rhythm Extensive infarct - age undetermined Since previous tracing, no significant change noted Abnormal EC G PREVIOUS TRACING : 11/07/2016 10.18 DOCTOR: Tanika Akers Interpretating Date/Time 11/08/2016 22:16:52
--- NOTE | 2016-11-09 07:33 | EKG ---
Date Performed: 11/08/2016 Time Performed: 05:17:18 PTAGE: 61 years EKG: Sinus rhythm Anteroseptal infarct - age undetermined Inferior infarct - age undetermined Abnormal ECG Compared to PREVIOUS TRACING , no change. PREVIOUS TRACIN11/07/2016 13.25 DOCTOR: Tanika Akers Interpretating Date/Time 11/09/2016 07:32:43
== END 2016-11-08 11:45 | disposition home or self-care (01) ==
LOC: HDOC 09:11 → HDIC 09:12 → HCIS 19:20 → HDOC 11-08 11:45
PROVIDERS: ATTEND Internal Medicine Interventional Cardiology
DX: I11.0 Hypertensive heart disease with heart failure (principal); I50.9 Heart failure, unspecified; I25.10 Atherosclerotic heart disease of native coronary artery without angina pectoris; I25.5 Ischemic cardiomyopathy; Z87.891 Personal history of nicotine dependence; Z79.01 Long term (current) use of anticoagulants
CPT/HCPCS: 00534; 33249; 71010; 80048; 85025; 85610; 85730; 86850; 86900; 86901; 93005; 93641; C1722; C1777; J0690; J2250; J3010; J3370